=== PATIENT | female | born 1945 | race Caucasian/White ===

== ENCOUNTER 2016-05-17 13:38 | Emergency (ER) | payer MEDICARE ==
[2016-05-17] MEDS ORDERED: Ativan 2 MG/1 ML VIAL SL ONE (13:46)
--- NOTE | 2016-05-17 13:51 | ERPHSYRPT ---
- History of Present Illness Time Seen by Provider: 05/17/16 13:40 Source: patient, EMS Patient Subjective Stated Complaint: PT STATES SHE DID NOT SLEEP LAST NIGHT. PT BROUGHT IN BY EMS. Triage Nursing Assessment: PT MANIC, RAMBLING IN SPEACH. PT PINK, WARM, DRY. Physician History: CC: [facility] patient with hx of psychosis. She is on long acting injectable abilify thru [facility]. She states unable to sleep last night. She called 911. FD noted rambling speech, psychosis, hyper-congregational talk. She has multiple boyfriends and has apparently broken up with one. She denies suicide or homicidal thoughts. She denies hallucinations. She has chronic delusions. Severity of Symptoms-Max: moderate Severity of Symptoms-Current: moderate Allergies/Adverse Reactions: allopurinol sodium [From Aloprim] Allergy (Mild, Verified 05/17/16 16:33) betamethasone [From Celestone] Allergy (Mild, Verified 05/17/16 16:33) betamethasone sodium phosphate [From Celestone] Allergy (Mild, Verified 16:33) cefaclor [From Ceclor] Allergy (Mild, Verified 05/17/16 16:33) lisinopril Allergy (Mild, Verified 05/17/16 16:33) Penicillins Allergy (Mild, Verified 05/17/16 16:33) Home Medications: Losartan Potassium 50 mg [Cozaar 50 MG] 50 mg PO DAILY 04/23/13 [History] Omeprazole 20 MG [Prilosec 20 mg] 40 mg PO DAILY 04/23/13 [History] Docusate Sodium 100 mg [Colace 100 MG] 100 mg PO BID 08/19/14 [History] Aripiprazole 10 mg [Abilify 10 MG] 10 mg PO DAILY 11/17/15 [History] Benztropine Mesylate 1 mg PO HS 11/17/15 [History] Cranberry 500 mg PO DAILY 11/17/15 [History] Lorazepam 0.5 mg [Ativan 0.5 MG] 1 mg PO TID 11/17/15 [History] Hx Tetanus, Diphtheria Vaccination/Date Given: Yes (UP TO DATE) Hx Influenza Vaccination/Date Given: Yes Hx Pneumococcal Vaccination/Date Given: Yes Immunizations Up to Date: Yes - Past Medical History Pertinent Past Medical History: Yes Neurological History: No Pertinent History ENT History: Cataracts Cardiac History: Hypertension Respiratory History: No Pertinent History Endocrine Medical History: No Pertinent History Musculoskeletal History: No Pertinent History GI Medical History: GERD History: No Pertinent History Psycho-Social History: Anxiety, Bipolar, Other Female Reproductive Disorders: No Pertinent History - Past Surgical History Past Surgical History: Yes Neuro Surgical History: No Pertinent History Cardiac: No Pertinent History Respiratory: No Pertinent History Gastrointestinal: No Pertinent History Genitourinary: No Pertinent History Musculoskeletal: No Pertinent History Female Surgical History: Tubal Ligation Other Surgical History: TUBAL AND MOUTH SURGERY. Pt poor historian - Social History Smoking Status: Never smoker Exposure to second hand smoke: No Drug Use: none Patient Lives Alone: No Significant Family History: no pertinent family hx - Female History Hx Now: No - Review of Systems Constitutional: No Fever, No Chills Eyes: No Vision Changes Ears, Nose, & Throat: No Symptoms Respiratory: No Symptoms Cardiac: No Chest Pain Abdominal/Gastrointestinal: No Abdominal Pain, No Nausea, No Vomiting, No Diarrhea Genitourinary Symptoms: No Symptoms Musculoskeletal: No Back Pain Skin: No Rash Neurological: No Focal Weakness, No Headache, No Parasthesia Psychological: Anxiety, Emotional Lability, No Drug Abuse, No Depression, No Suicidal Ideations, No Homicidal Ideations, No Hallucinations All Other Systems: Reviewed and Negative - Nursing Vital Signs Nursing Vital Signs: Initial Vital Signs Temperature 97.6 F Temperature Source Oral Pulse Rate 74 Respiratory Rate 16 Blood Pressure [Right Arm] 136/78 Pain Intensity 0 - Physical Exam General Appearance: alert, other (rambling speech, hypersexual and hyper- congregational speech. Frail lederly lady.) Neck Exam: normal inspection, non-tender, supple Respiratory Exam: normal breath sounds, lungs clear Cardiovascular Exam: regular rate/rhythm, No murmur Gastrointestinal/Abdominal Exam: soft, No tenderness, No distention Extremities Exam: normal inspection, normal range of motion Neurological Exam: alert Skin Exam: warm, dry, No rash SpO2 Interpretation: normal SpO2: 97 Oxygen Delivery: Room Air - Course Nursing assessment & vital signs reviewed: Yes Ordered Tests: Active Orders 24 hr Category Date Time Status Psychiatric Evaluation STAT Care 05/17/16 13:46 Active Regular Diet Diet 05/17/16 Dinner Active CBC W DIFF Stat Lab 05/17/16 14:15 Completed CMP Stat Lab 05/17/16 14:15 Completed Ethyl Alcohol,Urine Stat Lab 05/17/16 14:15 Completed UA Stat Lab 05/17/16 14:15 Completed Urine Triage Profile Stat Lab 05/17/16 14:15 Completed Medication Summary Discontinued Medications Generic Name Dose Route Start Last Admin Trade Name Ottoniel PRN Reason Stop Dose Admin Lorazepam 1 mg 05/17/16 13:46 05/17/16 14:08 Ativan 2 Mg/1 Ml Vial SL 05/17/16 13:47 1 mg STAT ONE Administration Lorazepam Confirm 05/17/16 14:08 Ativan 2 Mg/1 Ml Vial Administered 05/17/16 14:09 Dose 2 mg .ROUTE .STK-MED ONE Lab/Rad Data: Laboratory Result Diagrams 05/17/16 14:15 05/17/16 14:15 Laboratory Results 05/17/16 05/17/16 05/17/16 Range/Units 14:15 14:15 14:15 WBC 7.1 (4.0-10.5) K/mm3 RBC 4.13 (4.1-5.4) M/mm3 Hgb 12.5 (12.0-16.0) gm/dl Hct 38.6 (35-47) % MCV 93.5 (78-100) fl MCH 30.3 (26-32) pg MCHC 32.4 (32-36) g/dl RDW 13.3 (11.5-14.0) % Plt Count 286 (150-450) K/mm3 MPV 10.6 H (6-9.5) fl Gran % 51.6 (36.0-66.0) % Lymphocytes % 37.0 (24.0-44.0) % Monocytes % 5.9 (0.0-12.0) % Eosinophils % 4.8 (0.00-5.0) % Basophils % 0.7 (0.0-0.4) % Basophils # 0.05 (0-0.4) Sodium 140 (136-145) mEq/L Potassium 3.7 (3.5-5.1) mEq/L Chloride 104 (98-107) mEq/L Carbon Dioxide 29.6 (21-32) mEq/L Anion Gap 10.1 (5-15) MEQ/L BUN 17 (9-20) mg/dL Creatinine 0.69 (0.55-1.30) mg/dl Estimated GFR > 60 ML/MIN Glucose 98 (70-110) MG/DL Calcium 9.7 (8.5-10.1) mg/dL Total Bilirubin 0.4 (0.2-1.0) mg/dL AST 19 (15-37) U/L ALT 17 (12-78) U/L Alkaline Phosphatase 101 (46-116) U/L Serum Total Protein 8.5 H (6.4-8.2) gm/dL Albumin 4.1 (3.4-5.0) g/dL Ur Collection Type Urine Color (YELLOW) Urine Appearance (CLEAR) Urine pH 7.5 (5-6) Ur Specific [place] (1.005-1.025) Urine Protein (Negative) Urine Glucose (UA) (NEGATIVE) mg/dL Urine Ketones (NEGATIVE) Urine Nitrite (NEGATIVE) Urine Bilirubin (NEGATIVE) Urine Urobilinogen (0-1) mg/dL Urine WBC (Auto) (NEGATIVE) Urine RBC (Auto) (0-5) Evans/ul Urine Opiates Level (NEGATIVE) Ur Methadone (NEGATIVE) Urine Barbiturates (NEGATIVE) Ur Phencyclidine (PCP) (NEGATIVE) Urine Amphetamine (NEGATIVE) U Benzodiazepine Level (NEGATIVE) Urine Cocaine (NEGATIVE) Urine Marijuana (THC) (NEGATIVE) Urine Ethyl Alcohol 2 (0.00-20) mg/dl Specimen Received 05/17/16 05/17/16 Range/Units 14:15 14:15 WBC (4.0-10.5) K/mm3 RBC (4.1-5.4) M/mm3 Hgb (12.0-16.0) gm/dl Hct (35-47) % MCV (78-100) fl MCH (26-32) pg MCHC (32-36) g/dl RDW (11.5-14.0) % Plt Count (150-450) K/mm3 MPV (6-9.5) fl Gran % (36.0-66.0) % Lymphocytes % (24.0-44.0) % Monocytes % (0.0-12.0) % Eosinophils % (0.00-5.0) % Basophils % (0.0-0.4) % Basophils # (0-0.4) Sodium (136-145) mEq/L Potassium (3.5-5.1) mEq/L Chloride (98-107) mEq/L Carbon Dioxide (21-32) mEq/L Anion Gap (5-15) MEQ/L BUN (9-20) mg/dL Creatinine (0.55-1.30) mg/dl Estimated GFR ML/MIN Glucose (70-110) MG/DL Calcium (8.5-10.1) mg/dL Total Bilirubin (0.2-1.0) mg/dL AST (15-37) U/L ALT (12-78) U/L Alkaline Phosphatase (46-116) U/L Serum Total Protein (6.4-8.2) gm/dL Albumin (3.4-5.0) g/dL Ur Collection Type VOID Urine Color YELLOW (YELLOW) Urine Appearance CLEAR (CLEAR) Urine pH 7.5 (5-6) Ur Specific [place] 1.015 (1.005-1.025) Urine Protein NEGATIVE (Negative) Urine Glucose (UA) NEGATIVE (NEGATIVE) mg/dL Urine Ketones NEGATIVE (NEGATIVE) Urine Nitrite NEGATIVE (NEGATIVE) Urine Bilirubin NEGATIVE (NEGATIVE) Urine Urobilinogen 0.2 (0-1) mg/dL Urine WBC (Auto) NEGATIVE (NEGATIVE) Urine RBC (Auto) NEGATIVE (0-5) Evans/ul Urine Opiates Level NEG. (NEGATIVE) Ur Methadone NEG. (NEGATIVE) Urine Barbiturates NEG. (NEGATIVE) Ur Phencyclidine (PCP) NEG. (NEGATIVE) Urine Amphetamine NEG. (NEGATIVE) U Benzodiazepine Level NEG. (NEGATIVE) Urine Cocaine NEG. (NEGATIVE) Urine Marijuana (THC) NEG. (NEGATIVE) Urine Ethyl Alcohol (0.00-20) mg/dl Specimen Received 05/17/16 1430 - Progress Progress Note: 05/17/16 16:58 She had [facility] consult. Therapist is very familiar with her. He advised release home and follow up Thursday. Will release with instructions. Nurses are calling her family to take her home. Counseled pt/family regarding: lab results, diagnosis, need for follow-up - Departure Time of Disposition: 16:59 Departure Disposition: Home Clinical Impression: Bipolar 1 disorder Condition: Stable Critical Care Time: No Referrals: LENNIE BONNER [Primary Care Provider] - Instructions: Bipolar Disorder Additional Instructions: Follow up with [facility] Thursday. Take your medications as prescribed.
[2016-05-17] MEDS ORDERED: Ativan 2 MG/1 ML VIAL ONE (14:08)
[2016-05-17 14:27] LABS: BASOPHIL % 0.7 % (0.0-0.4); Eosinophil % 4.8 % (0.00-5.0); Granulocytes % 51.6 % (36.0-66.0); Mean Cell Volume 93.5 fl (78-100); Mean Corpuscular Hemoglobin 30.3 pg (26-32); Mean Platelet Volume 10.6 fl (6-9.5); Monocytes % 5.9 % (0.0-12.0); Platelet Count 286 K/mm3 (150-450); Red Blood Count 4.13 M/mm3 (4.1-5.4); Red Cell Distribution Width 13.3 % (11.5-14.0); White Blood Count 7.1 K/mm3 (4.0-10.5)
[2016-05-17 14:38] LABS: COMPLETE URINE MICROSCOPIC? NO; Collection Type VOID; Ph 7.5 (5-6)
[2016-05-17 14:56] LABS: ALBUMIN 4.1 g/dL (3.4-5.0); ALKALINE PHOSPHATASE 101 U/L (46-116); ANION GAP 10.1 MEQ/L (5-15); BILIRUBIN,TOTAL 0.4 mg/dL (0.2-1.0); BLOOD UREA NITROGEN 17 mg/dL (9-20); CHLORIDE 104 mEq/L (98-107); Carbon Dioxide 29.6 mEq/L (21-32); Glucose 98 MG/DL (70-110); Potassium 3.7 mEq/L (3.5-5.1); SGOT/AST 19 U/L (15-37); SGPT/ALT 17 U/L (12-78); SODIUM 140 mEq/L (136-145); Total Protein 8.5 gm/dL (6.4-8.2)
[2016-05-17 17:09] VITALS: BP 118/70; PULSE 76; O2SAT 100
== END 2016-05-17 17:10 | disposition home or self-care (01) ==
LOC: ED 13:38
DX: F31.9 Bipolar disorder, unspecified (principal); Z79.899 Other long term (current) drug therapy
CPT/HCPCS: 36415; 80053; 80307; 80320; 81002; 83986; 85025; 90791; 99283; 99285; J2060; Q3014

== ENCOUNTER 2016-09-24 04:12 | Emergency (ER) | payer MEDICARE ==
[2016-09-24 04:26] VITALS: O2SAT 98
[2016-09-24 04:57] LABS: BASOPHIL % 0.9 % (0.0-0.4); Eosinophil % 6.4 % (0.00-5.0); Granulocytes % 46.2 % (36.0-66.0); Lymphocytes % 37.5 % (24.0-44.0); Mean Platelet Volume 10.1 fl (6-9.5); Platelet Count 200 K/mm3 (150-450); Red Blood Count 3.37 M/mm3 (4.1-5.4); Red Cell Distribution Width 13.6 % (11.5-14.0); White Blood Count 5.4 K/mm3 (4.0-10.5)
[2016-09-24 04:59] LABS: Mean Corpuscular Hemoglobin 29.3 pg (26-32)
--- NOTE | 2016-09-24 05:03 | ERPHSYRPT ---
- History of Present Illness Time Seen by Provider: 09/24/16 04:30 Historian: patient Exam Limitations: clinical condition Patient Subjective Stated Complaint: PT STATES THAT SHE BEGAN HAVING SOME RECTAL BLEEDING. X 1 WEEK AGO DENIES ANY NAUSEA OR DIARRHEA. DENIES ANY. ABDOMINAL PAIN Triage Nursing Assessment: PT ALERT WARM AND DRY RESP EASY NON LABORED. ABDOMEN. SOFT NON TENDER ON PALPATION Physician History: PATIENT COMPLAINS OF RECTAL BLEEDING X 1 WEEK. DENIES WEAKNESS, DIZZINESS ABDOMINAL PAIN. Timing/Duration: week(s) Activities at Onset: none Quality: other (SCANT) Pain Radiation: no radiation Severity of Pain-Max: none Severity of Pain-Current: none Associated Symptoms: denies symptoms Previous symptoms: no prior history Allergies/Adverse Reactions: allopurinol sodium [From Aloprim] Allergy (Mild, Verified 05/17/16 16:33) betamethasone [From Celestone] Allergy (Mild, Verified 05/17/16 16:33) betamethasone sodium phosphate [From Celestone] Allergy (Mild, Verified 16:33) cefaclor [From Ceclor] Allergy (Mild, Verified 05/17/16 16:33) lisinopril Allergy (Mild, Verified 05/17/16 16:33) Penicillins Allergy (Mild, Verified 05/17/16 16:33) Home Medications: Losartan Potassium 50 mg [Cozaar 50 MG] 50 mg PO DAILY 04/23/13 [History] Omeprazole 20 MG [Prilosec 20 mg] 40 mg PO DAILY 04/23/13 [History] Docusate Sodium 100 mg [Colace 100 MG] 100 mg PO BID 08/19/14 [History] Lorazepam 0.5 mg [Ativan 0.5 MG] 1 mg PO TID 11/17/15 [History] Hx Tetanus, Diphtheria Vaccination/Date Given: No (UNKNOWN) Hx Influenza Vaccination/Date Given: No Hx Pneumococcal Vaccination/Date Given: No Immunizations Up to Date: Yes - Review of Systems Constitutional: No Fever, No Chills Eyes: No Symptoms Ears, Nose, & Throat: No Symptoms Respiratory: No Cough, No Dyspnea Cardiac: No Chest Pain, No Edema, No Syncope Abdominal/Gastrointestinal: Hematochezia, No Abdominal Pain, No Nausea, No Vomiting, No Diarrhea Genitourinary Symptoms: No Symptoms, No Dysuria Musculoskeletal: No Symptoms, No Back Pain, No Neck Pain Skin: No Rash Neurological: No Dizziness, No Focal Weakness, No Sensory Changes Psychological: No Symptoms Endocrine: No Symptoms All Other Systems: Reviewed and Negative - Past Medical History Pertinent Past Medical History: Yes Neurological History: No Pertinent History ENT History: Cataracts Cardiac History: Hypertension Respiratory History: No Pertinent History Endocrine Medical History: No Pertinent History Musculoskeletal History: No Pertinent History GI Medical History: GERD History: No Pertinent History Psycho-Social History: Anxiety, Bipolar, Other Female Reproductive Disorders: No Pertinent History Other Medical History: pt niecy historian, updated 01/17/15 - Past Surgical History Past Surgical History: Yes Neuro Surgical History: No Pertinent History Cardiac: No Pertinent History Respiratory: No Pertinent History Gastrointestinal: No Pertinent History Genitourinary: No Pertinent History Musculoskeletal: No Pertinent History Female Surgical History: Tubal Ligation Other Surgical History: TUBAL AND MOUTH SURGERY. Pt niecy keithian - Social History Smoking Status: Never smoker Exposure to second hand smoke: No Drug Use: none Patient Lives Alone: No Significant Family History: no pertinent family hx - Female History Hx Last Menstrual Period: N/A Hx Now: No - Nursing Vital Signs Nursing Vital Signs: Initial Vital Signs Temperature 97.1 F Temperature Source Oral Pulse Rate 60 Respiratory Rate 18 Blood Pressure [118/48] 118/48 - Physical Exam General Appearance: no apparent distress, alert Eye Exam: PERRL/EOMI, eyes nml inspection Ears, Nose, Throat Exam: normal ENT inspection, pharynx normal, moist mucous membranes Neck Exam: normal inspection, non-tender, supple, full range of motion Respiratory Exam: normal breath sounds, lungs clear, No respiratory distress Cardiovascular Exam: regular rate/rhythm, normal heart sounds Gastrointestinal/Abdomen Exam: soft, normal bowel sounds, other (NONTENDER), No tenderness, No mass Rectal Exam: normal exam, normal rectal tone Back Exam: normal inspection, normal range of motion, No CVA tenderness, No vertebral tenderness Extremity Exam: normal inspection, normal range of motion, pelvis stable Neurologic Exam: alert, oriented x 3, cooperative, normal mood/affect, nml cerebellar function, sensation nml, No motor deficits Skin Exam: normal color, warm, dry SpO2: 98 Oxygen Delivery: Room Air Ordered Tests: Active Orders 24 hr Category Date Time Status CBC W DIFF Stat Lab 09/24/16 04:45 Completed Occult Blood,Stool Other Stat Lab 09/24/16 05:30 Completed PROTIME WITH INR Stat Lab 09/24/16 04:45 Completed Lab/Rad Data: Laboratory Result Diagrams 09/24/16 04:45 Laboratory Results 09/24/16 09/24/16 09/24/16 Range/Units 05:30 04:45 04:45 WBC 5.4 (4.0-10.5) K/mm3 RBC 3.37 L (4.1-5.4) M/mm3 Hgb 9.9 L (12.0-16.0) gm/dl Hct 31.0 L (35-47) % MCV 92.0 (78-100) fl MCH 29.3 (26-32) pg MCHC 31.9 L (32-36) g/dl RDW 13.6 (11.5-14.0) % Plt Count 200 (150-450) K/mm3 MPV 10.1 H (6-9.5) fl Gran % 46.2 (36.0-66.0) % Lymphocytes % 37.5 (24.0-44.0) % Monocytes % 9.0 (0.0-12.0) % Eosinophils % 6.4 H (0.00-5.0) % Basophils % 0.9 (0.0-0.4) % Basophils # 0.05 (0-0.4) INR 0.89 (0.8-3.0) Stool Occult Blood POSITIVE (Negative) - Progress Progress Note: 09/24/16 05:57 OCCULT POSITIVE, HGB 9.9, HGB 12.5 IN 05/[address] Bonner (DISCUSSED WITH DR BONNER AT 0600 CONCERNING FOLLOWUP IN OFFICE) Counseled pt/family regarding: diagnosis, need for follow-up - Departure Time of Disposition: 06:10 Departure Disposition: Home Clinical Impression: ANEMIA, RECTAL BLEEDING Condition: Stable Critical Care Time: No Additional Instructions: CALL DR BONNER OFFICE TODAY TO SCHEDULE FOLLOWUP APPOINTMENT CONCERNING COLONOSCOPY. [facility] WEAKNESS OR DIZZINESS.
[2016-09-24 05:11] LABS: INR 0.89 (0.8-3.0)
[2016-09-24 06:29] VITALS: BP 137/69; PULSE 72
== END 2016-09-24 06:28 | disposition home or self-care (01) ==
LOC: ED 04:12
DX: D64.9 Anemia, unspecified (principal); K62.5 Hemorrhage of anus and rectum
CPT/HCPCS: 36415; 82272; 85025; 85610; 99283

== ENCOUNTER 2016-11-09 23:55 | Emergency (ER) | payer MEDICARE ==
[2016-11-10 00:17] VITALS: O2SAT 98
[2016-11-10] MEDS ORDERED: BABY ASPIRIN 81 MG CHEW PO ONE (00:21)
--- NOTE | 2016-11-10 00:27 | ERPHSYRPT ---
- History of Present Illness Time Seen by Provider: 11/10/16 00:17 Source: patient Exam Limitations: no limitations Patient Subjective Stated Complaint: patient was anxious over being assigned a guardian and she called 911, is happy now thats she here with us, per patient Triage Nursing Assessment: pt alert and oriented, laughing constantly, [id number], able ot ambulate to restroom by herself, gait is steady, skin clean dry and intact. Physician History: FOR ABOUT THE PAST 2 HOURS PT HAS HAD CONSTANT SHARP LEFT ANTERIOR CHEST PAIN; DENIES SHORTNESS OF AIR, FEVER, COUGH, NAUSEA, DIAPHORESIS, ABDOMINAL PAIN. PT ALSO STATES HER BP WAS 200 SYSTOLIC TONIGHT. Allergies/Adverse Reactions: allopurinol sodium [From Aloprim] Allergy (Mild, Verified 05/17/16 16:33) betamethasone [From Celestone] Allergy (Mild, Verified 05/17/16 16:33) betamethasone sodium phosphate [From Celestone] Allergy (Mild, Verified 16:33) cefaclor [From Ceclor] Allergy (Mild, Verified 05/17/16 16:33) lisinopril Allergy (Mild, Verified 05/17/16 16:33) Penicillins Allergy (Mild, Verified 05/17/16 16:33) Home Medications: Losartan Potassium 50 mg [Cozaar 50 MG] 50 mg PO DAILY 04/23/13 [History] Omeprazole 20 MG [Prilosec 20 mg] 40 mg PO DAILY 04/23/13 [History] Docusate Sodium 100 mg [Colace 100 MG] 100 mg PO BID 08/19/14 [History] Lorazepam 0.5 mg [Ativan 0.5 MG] 1 mg PO TID 11/17/15 [History] Hx Tetanus, Diphtheria Vaccination/Date Given: Yes Hx Influenza Vaccination/Date Given: Yes Hx Pneumococcal Vaccination/Date Given: Yes Immunizations Up to Date: Yes - Review of Systems Cardiac: Chest Pain All Other Systems: Reviewed and Negative - Past Medical History Pertinent Past Medical History: Yes Neurological History: No Pertinent History ENT History: Cataracts Cardiac History: Hypertension Respiratory History: No Pertinent History Endocrine Medical History: No Pertinent History Musculoskeletal History: No Pertinent History GI Medical History: GERD History: No Pertinent History Psycho-Social History: Anxiety, Bipolar, Other Female Reproductive Disorders: No Pertinent History Other Medical History: pt niecy historian, updated 01/17/15 - Past Surgical History Past Surgical History: Yes Neuro Surgical History: No Pertinent History Cardiac: No Pertinent History Respiratory: No Pertinent History Gastrointestinal: No Pertinent History Genitourinary: No Pertinent History Musculoskeletal: No Pertinent History Female Surgical History: Tubal Ligation Other Surgical History: TUBAL AND MOUTH SURGERY. Pt poor historian - Social History Smoking Status: Never smoker Exposure to second hand smoke: No Drug Use: none Patient Lives Alone: No Significant Family History: no pertinent family hx - Female History Hx Now: No - Nursing Vital Signs Nursing Vital Signs: Initial Vital Signs Temperature 97.3 F 11/09/16 23:56 Pulse Rate 60 11/09/16 23:56 Respiratory Rate 17 11/09/16 23:56 Blood Pressure 178/88 11/09/16 23:56 O2 Sat by Pulse Oximetry 98 11/09/16 23:56 Pain Scale Pain Intensity 3 - Physical Exam General Appearance: alert, anxiety Eye Exam: other (EXOTROPIA) Ears, Nose, Throat Exam: pharynx normal, moist mucous membranes Neck Exam: normal inspection Respiratory Exam: lungs clear Cardiovascular Exam: normal heart sounds Gastrointestinal/Abdomen Exam: soft, normal bowel sounds Back Exam: normal range of motion Extremity Exam: normal inspection Neurologic Exam: alert, cooperative Skin Exam: warm, dry SpO2 Interpretation: normal SpO2: 98 Oxygen Delivery: Room Air - Course Nursing assessment & vital signs reviewed: Yes EKG Interpreted by Me: RATE (57), Sinus Wilian, NORMAL AXIS, NORMAL INTERVALS - Radiology Exams Chest X-ray Interpretation: Interpreted by me, No Pneumonia Ordered Tests: Active Orders 24 hr Category Date Time Status Coordinating Producer STAT Care 11/10/16 00:21 Active EKG-ER Only STAT Care 11/10/16 00:21 Active CHEST 1 VIEW (PORTABLE) Stat Exams 11/10/16 00:22 Taken AMYLASE Stat Lab 11/10/16 00:30 Completed CBC W DIFF Stat Lab 11/10/16 00:30 Completed CMP Stat Lab 11/10/16 00:30 Completed LIPASE Stat Lab 11/10/16 00:30 Completed MAGNESIUM Stat Lab 11/10/16 00:30 Completed TROPONIN Q3H Lab 11/10/16 00:30 Completed TROPONIN Q3H Lab 11/10/16 03:30 Ordered TROPONIN Q3H Lab 11/10/16 06:30 Ordered TROPONIN Q3H Lab 11/10/16 09:30 Ordered TROPONIN Q3H Lab 11/10/16 12:30 Ordered Medication Summary Discontinued Medications Generic Name Dose Route Start Last Admin Trade Name Ottoniel PRN Reason Stop Dose Admin Aspirin 324 mg 11/10/16 00:21 11/10/16 00:36 Baby Aspirin 81 Mg Chew PO 11/10/16 00:22 324 mg STAT ONE Administration Aspirin Confirm 11/10/16 00:34 Baby Aspirin 81 Mg Chew Administered 11/10/16 00:35 Dose 324 mg .ROUTE .STK-MED ONE Lab/Rad Data: Laboratory Result Diagrams 11/10/16 00:30 11/10/16 00:30 Laboratory Results 11/10/16 11/10/16 11/10/16 Range/Units 00:30 00:30 00:30 WBC 5.8 (4.0-10.5) K/mm3 RBC 3.55 L (4.1-5.4) M/mm3 Hgb 10.2 L (12.0-16.0) gm/dl Hct 32.8 L (35-47) % MCV 92.4 (78-100) fl MCH 28.7 (26-32) pg MCHC 31.1 L (32-36) g/dl RDW 14.1 H (11.5-14.0) % Plt Count 196 (150-450) K/mm3 MPV 10.4 H (6-9.5) fl Gran % 40.8 (36.0-66.0) % Lymphocytes % 43.6 (24.0-44.0) % Monocytes % 9.9 (0.0-12.0) % Eosinophils % 5.0 (0.00-5.0) % Basophils % 0.7 (0.0-0.4) % Basophils # 0.04 (0-0.4) Sodium 144 (136-145) mEq/L Potassium 4.0 (3.5-5.1) mEq/L Chloride 105 (98-107) mEq/L Carbon Dioxide 28.8 (21-32) mEq/L Anion Gap 14.1 (5-15) MEQ/L BUN 15 (9-20) mg/dL Creatinine 0.70 (0.55-1.30) mg/dl Estimated GFR > 60 ML/MIN Glucose 94 (70-110) MG/DL Calcium 9.7 (8.5-10.1) mg/dL Magnesium 2.0 (1.8-2.4) mg/dL Total Bilirubin 0.30 (0.2-1.0) mg/dL AST 19 (15-37) U/L ALT 21 (12-78) U/L Alkaline Phosphatase 105 (46-116) U/L Troponin I < 0.017 (0.000-0.056) ng/ml Serum Total Protein 7.1 (6.4-8.2) gm/dL Albumin 3.6 (3.4-5.0) g/dL Amylase 75 (25-115) U/L Lipase 93 (73-393) U/L - Departure Time of Disposition: 01:21 Departure Disposition: Home Clinical Impression: CHEST PAIN, ANXIETY Condition: Stable Critical Care Time: No Instructions: Anxiety -- Adult Additional Instructions: FOLLOW UP WITH PRIVATE DOCTOR TOMORROW.
[2016-11-10] MEDS ORDERED: BABY ASPIRIN 81 MG CHEW ONE (00:34)
[2016-11-10 00:38] LABS: BASOPHIL % 0.7 % (0.0-0.4); Granulocytes % 40.8 % (36.0-66.0); Lymphocytes % 43.6 % (24.0-44.0); Mean Cell Volume 92.4 fl (78-100); Mean Corpuscular Hemoglobin 28.7 pg (26-32); Mean Platelet Volume 10.4 fl (6-9.5); Monocytes % 9.9 % (0.0-12.0); Platelet Count 196 K/mm3 (150-450); Red Blood Count 3.55 M/mm3 (4.1-5.4); Red Cell Distribution Width 14.1 % (11.5-14.0); White Blood Count 5.8 K/mm3 (4.0-10.5)
[2016-11-10 00:54] VITALS: BP 171/69; PULSE 68
[2016-11-10 00:59] LABS: ALBUMIN 3.6 g/dL (3.4-5.0); ALKALINE PHOSPHATASE 105 U/L (46-116); ANION GAP 14.1 MEQ/L (5-15); BLOOD UREA NITROGEN 15 mg/dL (9-20); CHLORIDE 105 mEq/L (98-107); Carbon Dioxide 28.8 mEq/L (21-32); Glucose 94 MG/DL (70-110); LIPASE 93 U/L (73-393); SGOT/AST 19 U/L (15-37); SGPT/ALT 21 U/L (12-78); SODIUM 144 mEq/L (136-145); Total Protein 7.1 gm/dL (6.4-8.2)
--- NOTE | 2016-11-10 08:50 | XRAY ---
Indication: Chest pain. Comparison: March 28, 2015. Portable apical lordotic chest underinflated today and clear again with incidental calcified granulomas. Heart is not enlarged. Bony thorax intact. Impression: Stable nonacute chest.
== END 2016-11-10 03:20 | disposition home or self-care (01) ==
LOC: ED 23:55 → SUPCPDRO 23:55 → ED 11-10 03:20
DX: R07.89 Other chest pain (principal); F41.9 Anxiety disorder, unspecified; I10 Essential (primary) hypertension; Z79.899 Other long term (current) drug therapy
CPT/HCPCS: 36415; 71010; 80053; 82150; 83690; 83735; 84484; 85025; 93005; 93041; 99283; 99285; A9270-GY

== ENCOUNTER 2017-04-11 15:00 | Emergency (ER) | payer MEDICARE ==
[2017-04-11] MEDS ORDERED: Adacel Vial IM ONE ×2 (15:06→15:07)
--- NOTE | 2017-04-11 15:07 | ERPHSYRPT ---
- History of Present Illness Time Seen by Provider: 04/11/17 15:01 Source: patient, EMS Physician History: CC: dry hands Hx: [address] Bonner. She called the ambulance to bring her here for dry hands. She has dry cracked hands. Thinks she has allergy to her gloves. It is cold outside. No self harm. She is unsure of her last tetanus vaccine. Timing/Duration: today Severity: moderate Allergies/Adverse Reactions: allopurinol sodium [From Aloprim] Allergy (Mild, Verified 03/04/17 14:33) betamethasone [From Celestone] Allergy (Mild, Verified 03/04/17 14:33) betamethasone sodium phosphate [From Celestone] Allergy (Mild, Verified 14:33) cefaclor [From Ceclor] Allergy (Mild, Verified 03/04/17 14:33) lisinopril Allergy (Mild, Verified 03/04/17 14:33) Penicillins Allergy (Mild, Verified 03/04/17 14:33) Home Medications: Losartan Potassium 50 mg [Cozaar 50 MG] 50 mg PO DAILY 04/23/13 [History] Omeprazole 20 MG [Prilosec 20 mg] 40 mg PO DAILY 04/23/13 [History] Docusate Sodium 100 mg [Colace 100 MG] 100 mg PO DAILY 08/19/14 [History] Lorazepam 0.5 mg [Ativan 0.5 MG] 1 mg PO TID 11/17/15 [History] Acetaminophen [Tylenol] 650 mg PO BID 03/04/17 [History] Ascorbic Acid 500 mg [Vitamin C 500 MG] 1,000 mg PO DAILY 03/04/17 [ History] Atorvastatin Calcium [Lipitor] 10 mg PO DAILY 03/04/17 [History] Calcium Citrate/Vitamin D3 [Citracal + D Caplet] 1 each PO DAILY 03/04/17 [ History] Calcium Polycarbophil [Fibercon] 625 mg BID 03/04/17 [History] Cetirizine HCl [Zyrtec] 10 mg PO DAILY 03/04/17 [History] Cranberry Conc/C/Bacill Coag [Cranberry Tablet] 1 each PO DAILY 03/04/17 [ History] Ferrous Sulfate [Iron] 325 mg PO BID 03/04/17 [History] Multivitamin [Multivitamins] 1 each PO DAILY 03/04/17 [History] Vitamin B Complex [Stress B] 1 each PO DAILY 03/04/17 [History] Vitamin B Complex [Vitamin B-100 Complex] 1 each PO DAILY 03/04/17 [History] Hx Tetanus, Diphtheria Vaccination/Date Given: Yes Hx Influenza Vaccination/Date Given: Yes Hx Pneumococcal Vaccination/Date Given: Yes - Review of Systems Constitutional: No Fever Respiratory: No Cough, No Dyspnea Cardiac: No Chest Pain Abdominal/Gastrointestinal: No Abdominal Pain Skin: Rash (dry hands) Neurological: No Focal Weakness, No Parasthesia - Past Medical History Pertinent Past Medical History: Yes Neurological History: No Pertinent History ENT History: Cataracts Cardiac History: Hypertension Respiratory History: No Pertinent History Endocrine Medical History: No Pertinent History Musculoskeletal History: No Pertinent History GI Medical History: GERD History: No Pertinent History Psycho-Social History: Anxiety, Bipolar, Other Female Reproductive Disorders: No Pertinent History - Past Surgical History Past Surgical History: Yes Neuro Surgical History: No Pertinent History Cardiac: No Pertinent History Respiratory: No Pertinent History Gastrointestinal: No Pertinent History Genitourinary: No Pertinent History Musculoskeletal: No Pertinent History Female Surgical History: Tubal Ligation Other Surgical History: TUBAL AND MOUTH SURGERY. Pt poor historian - Social History Smoking Status: Never smoker Exposure to second hand smoke: No Drug Use: none Patient Lives Alone: No (lives at home) Significant Family History: no pertinent family hx - Physical Exam General Appearance: alert Eye Exam: PERRL/EOMI Ears, Nose, Throat Exam: moist mucous membranes Neck Exam: normal inspection, non-tender, supple Respiratory Exam: normal breath sounds, lungs clear Cardiovascular Exam: regular rate/rhythm Neurologic Exam: alert, oriented x 3, cooperative, nml station & gait, sensation nml, No motor deficits Skin Exam: warm, dry, other (dry cracked skin on her hands, no superinfection. No erythema or drng) - Course Nursing assessment & vital signs reviewed: Yes - Progress Progress Note: 04/11/17 15:04 Advised she use udder cream and bag balm for her dry skin. She will follow up with Dr Bonner. Counseled pt/family regarding: diagnosis, need for follow-up - Departure Time of Disposition: 15:04 Departure Disposition: Home Clinical Impression: Compulsive behavior, Irritant hand dermatitis Condition: Stable Critical Care Time: No Referrals: LENNIE BONNER [Primary Care Provider] - Instructions: Abrasion Additional Instructions: Use udder cream on your hands from [facility] or the farm [facility]. After, use bag balm on your hands to protect them from the cold and water. Only wash your hands before eating and if soiled. Follow up with Dr Bonner. You had your tetanus vaccine updated here.
[2017-04-11 15:11] VITALS: BP 138/71; PULSE 70; O2SAT 97
== END 2017-04-11 16:18 | disposition home or self-care (01) ==
LOC: ED 15:00
DX: L24.9 Irritant contact dermatitis, unspecified cause (principal); F60.5 Obsessive-compulsive personality disorder
CPT/HCPCS: 90471; 90715

== ENCOUNTER 2017-05-23 16:02 | Emergency (ER) | payer MEDICARE ==
[2017-05-23] MEDS ORDERED: TYLENOL 325 MG PO ONE (16:34)
--- NOTE | 2017-05-23 16:39 | ERPHSYRPT ---
- History of Present Illness Time Seen by Provider: 05/23/17 16:29 Source: patient, other (friend Castro) Patient Subjective Stated Complaint: pt here for left pain. pt has hammer toe and wers pads on toes witch is not hepling Triage Nursing Assessment: pt has abrasion to left foot.pt walked in, resp easy , kin w/d/p Physician History: CC: left foot hammer toe Hx: 72 y/o patient of Dr Bonner with hammer toe on left foot. She has had this for quite some time. She reports it is worse so she came to the ER to have it fixed. No recent injury. She saw Dr Ross for this in the past. Tetanus up to date. She uses hammer toe pads. Lower Extremities Pain: 2nd toe: left Allergies/Adverse Reactions: allopurinol sodium [From Aloprim] Allergy (Mild, Verified 05/23/17 16:25) betamethasone [From Celestone] Allergy (Mild, Verified 05/23/17 16:25) betamethasone sodium phosphate [From Celestone] Allergy (Mild, Verified 16:25) cefaclor [From Ceclor] Allergy (Mild, Verified 05/23/17 16:25) lisinopril Allergy (Mild, Verified 05/23/17 16:25) Penicillins Allergy (Mild, Verified 05/23/17 16:25) Home Medications: Losartan Potassium 50 mg [Cozaar 50 MG] 50 mg PO DAILY 04/23/13 [History] Omeprazole 20 MG [Prilosec 20 mg] 40 mg PO DAILY 04/23/13 [History] Docusate Sodium 100 mg [Colace 100 MG] 100 mg PO DAILY 08/19/14 [History] Lorazepam 0.5 mg [Ativan 0.5 MG] 1 mg PO TID 11/17/15 [History] Acetaminophen [Tylenol] 650 mg PO BID 03/04/17 [History] Ascorbic Acid 500 mg [Vitamin C 500 MG] 1,000 mg PO DAILY 03/04/17 [ History] Atorvastatin Calcium [Lipitor] 10 mg PO DAILY 03/04/17 [History] Calcium Citrate/Vitamin D3 [Citracal + D Caplet] 1 each PO DAILY 03/04/17 [ History] Calcium Polycarbophil [Fibercon] 625 mg BID 03/04/17 [History] Cetirizine HCl [Zyrtec] 10 mg PO DAILY 03/04/17 [History] Cranberry Conc/C/Bacill Coag [Cranberry Tablet] 1 each PO DAILY 03/04/17 [ History] Ferrous Sulfate [Iron] 325 mg PO BID 03/04/17 [History] Multivitamin [Multivitamins] 1 each PO DAILY 03/04/17 [History] Vitamin B Complex [Stress B] 1 each PO DAILY 03/04/17 [History] Vitamin B Complex [Vitamin B-100 Complex] 1 each PO DAILY 03/04/17 [History] Hx Tetanus, Diphtheria Vaccination/Date Given: Yes Hx Influenza Vaccination/Date Given: Yes Hx Pneumococcal Vaccination/Date Given: Yes Immunizations Up to Date: Yes - Review of Systems Constitutional: No Fever, No Chills Musculoskeletal: Joint Pain (left hammer toe), No Injury Neurological: No Focal Weakness - Past Medical History Pertinent Past Medical History: Yes Neurological History: No Pertinent History ENT History: Cataracts Cardiac History: Hypertension Respiratory History: No Pertinent History Endocrine Medical History: No Pertinent History Musculoskeletal History: No Pertinent History GI Medical History: GERD History: No Pertinent History Psycho-Social History: Anxiety, Bipolar, Other Female Reproductive Disorders: No Pertinent History - Past Surgical History Past Surgical History: Yes Neuro Surgical History: No Pertinent History Cardiac: No Pertinent History Respiratory: No Pertinent History Gastrointestinal: No Pertinent History Genitourinary: No Pertinent History Musculoskeletal: No Pertinent History Female Surgical History: Tubal Ligation Other Surgical History: TUBAL AND MOUTH SURGERY. Pt poor historian - Social History Smoking Status: Never smoker Exposure to second hand smoke: No Drug Use: none Patient Lives Alone: No Significant Family History: no pertinent family hx - Female History Hx Last Menstrual Period: post Hx Now: No - Nursing Vital Signs Nursing Vital Signs: Initial Vital Signs Temperature 97.2 F 05/23/17 16:17 Pulse Rate 64 05/23/17 16:17 Respiratory Rate 16 05/23/17 16:17 Blood Pressure 184/77 05/23/17 16:17 O2 Sat by Pulse Oximetry 97 05/23/17 16:17 Pain Scale Pain Intensity 4 - Physical Exam General Appearance: alert, other (flight of ideas) Eyes, Ears, Nose, Throat Exam: normal ENT inspection, moist mucous membranes Neck Exam: supple Cardiovascular/Respiratory Exam: regular rate/rhythm Mental Status Exam: alert, cooperative Skin Exam: warm, dry SpO2 Interpretation: normal SpO2: 97 Oxygen Delivery: Room Air Comments: left 2nd toe overlaps the 1st toe. No redness, swelling, bruising, or warmth. Pulses intact. - Course Nursing assessment & vital signs reviewed: Yes - Radiology Exams eft foot X-ray Interpretation: Interpreted by me (osteopenia, heel spur, left 2nd toe hammer toe, no fx) Ordered Tests: Active Orders 24 hr Category Date Time Status Splint STAT Care 05/23/17 16:34 Active FOOT (MINIMUM 3 VIEWS) Stat Exams 05/23/17 16:35 Taken Medication Summary Discontinued Medications Generic Name Dose Route Start Last Admin Trade Name Ottoniel PRN Reason Stop Dose Admin Acetaminophen 650 mg 05/23/17 16:34 Tylenol 325 Mg PO 05/23/17 16:35 STAT ONE Acetaminophen Confirm 05/23/17 16:45 Tylenol 325 Mg Administered 05/23/17 16:46 Dose 650 mg .ROUTE .STK-MED ONE - Progress Progress Note: 05/23/17 16:50 Advised foot follow up. Darco shoe and APAP. Counseled pt/family regarding: diagnosis, need for follow-up, rad results - Departure Time of Disposition: 16:50 Departure Disposition: Home Clinical Impression: Hammer toe of left foot Condition: Stable Critical Care Time: No Referrals: LENNIE BONNER [Primary Care Provider] - Instructions: Hammer Toe (DC) Additional Instructions: Darco post op shoe. Tylenol as directed for discomfort. See Dr Ross/Cruzito for follow up.
[2017-05-23] MEDS ORDERED: TYLENOL 325 MG ONE (16:45)
[2017-05-23 17:06] VITALS: BP 127/86; PULSE 88; O2SAT 99
--- NOTE | 2017-05-23 20:52 | XRAY ---
Indication: Hammertoe. Comparison: October 31, 2013. 3 nonweightbearing views of the left foot demonstrates new 2nd hammertoe deformity. Stable 1st MTP bunion deformity with mild degenerative changes and small plantar heel spur. No other bony, articular, or soft tissue abnormalities.
== END 2017-05-23 17:06 | disposition home or self-care (01) ==
LOC: ED 16:02
DX: M20.42 Other hammer toe(s) (acquired), left foot (principal); I10 Essential (primary) hypertension
CPT/HCPCS: 73630; 99283; A9270-GY

== ENCOUNTER 2017-10-21 06:12 | Day surgery (SDC) | payer MEDICARE ==
[~2017-10-21 06:12] MED LIST: Lactated Ringers 1,000 ML IV SCH
[2017-10-21] MEDS ORDERED: Ketamine HCl 50 MG/ML IV ONE (06:13)
[2017-10-21] MEDS ORDERED: DIPRIVAN 200 MG/20 ML IV ONE (06:13)
[2017-10-21 06:43] VITALS: O2SAT 96
[2017-10-21] MEDS ORDERED: Lactated Ringers 1,000 ML IV ONE (07:39)
[2017-10-21 08:25] VITALS: BP 129/82; PULSE 70
--- NOTE | 2017-10-21 09:52 | OP ---
SURGERY DATE/TIME: 10/21/2017 0706 PREOPERATIVE DIAGNOSES: 1) Rectal bleeding. 2) Iron deficiency anemia. 3) Abdominal pain. POSTOPERATIVE DIAGNOSES: 1) Normal EGD. 2) Normal colon. PROCEDURES: 1) EGD. 2) Colonoscopy. SURGEON: Vernon Su M.D. ANESTHESIA: MAC by Tao Salamanca CRNA. ESTIMATED BLOOD LOSS: None. SPECIMENS: None. DESCRIPTION OF PROCEDURE: After informed written consent was obtained, the patient was taken to the endoscopy suite. She had a bite block inserted and underwent monitored anesthesia. The endoscope was inserted in posterior oropharynx and under direct visualization the esophagus was traversed. The esophageal mucosa of gastroesophageal junction and gastric mucosa all had a normal mucosal appearance free of lesions or defects. The gastric antrum inspected and noted to be within normal limits. No ulcerations or bleeding was present. Pylorus traversed and the first and second portions of the duodenum was within normal limits. Pictures were taken from the duodenum, gastric antrum, gastroesophageal junction and esophagus all within normal limits. The scope was removed. The scopes were switched. Digital rectal exam showed normal sphincter tone and some mild external hemorrhoids. The scope was inserted in the rectum and sequentially the entire colonic mucosa was traversed. The level of cecum was reached and verified with direct visualization of ileocecal valve. Upon withdrawal careful mucosal inspection revealed no gross abnormalities. Prior to withdrawal retroflexion was performed and showed no internal lesions. Pictures were taken from the ileocecal valve and several other benefits representative areas throughout the scope. The patient was transferred to the recovery room in excellent condition.
== END 2017-10-21 09:02 | disposition home or self-care (01) ==
LOC: SDC 06:12
PROVIDERS: ATTEND Family Medicine
DX: K62.5 Hemorrhage of anus and rectum (principal); D50.9 Iron deficiency anemia, unspecified; R10.9 Unspecified abdominal pain; E78.5 Hyperlipidemia, unspecified; K21.9 Gastro-esophageal reflux disease without esophagitis
CPT/HCPCS: 99100; J2704

== ENCOUNTER 2018-01-08 02:43 | Emergency (ER) | payer MEDICARE ==
[2018-01-08] MEDS ORDERED: TORAdol 30 mg Injection IM ONE (03:26)
--- NOTE | 2018-01-08 03:26 | ERPHSYRPT ---
- History of Present Illness Time Seen by Provider: 01/08/18 03:17 Source: patient, EMS Exam Limitations: no limitations Patient Subjective Stated Complaint: pt states she fell yesterday and hurt her lt knee Triage Nursing Assessment: pt alert and oriented, answers questions approp. pt arrive per ambulance. ambulate to bathroom and back to the bed with no assist. respirations nonlabored with lungs cta. bruising and mild swelling noted to lt knee. pedal pulse and cap refill to lt wnl Physician History: The patient is a 72-year-old female brought in by ambulance from home where she states that she fell on a carpeted floor yesterday striking her left knee on the floor. She has been walking at home without difficulty. She states her left knee hurts. She also states that her chest hurts From the fall. She has tried Tylenol without relief. She has an appointment in the morning with her primary doctor about the fall. She also states she has been urinating alot. Her past medical history significant for bipolar, obsessive-compulsive behavior , hypertension, GERD, anxiety, high cholesterol, and hammertoe. Occurred: yesterday Reason for Fall: lost balance, fell from standing pos Injuries/Pain Location: chest, lower extremity (left knee) Loss of Consciousness: no loss of consciousness Quality: aching Severity of Pain-Max: mild Severity of Pain-Current: mild Modifying Factors: Improves With: pain medication (tylenol) Associated Symptoms (Fall): chest pain, extremity injury, No back pain, No neck pain, No shortness of breath, No trouble walking Allergies/Adverse Reactions: allopurinol sodium [From Aloprim] Allergy (Mild, Verified 01/08/18 02:58) states unknown reaction betamethasone [From Celestone] Allergy (Mild, Verified 01/08/18 02:58) unknown reaction betamethasone sodium phosphate [From Celestone] Allergy (Mild, Verified 02:58) states unknown reaction cefaclor [From Ceclor] Allergy (Mild, Verified 01/08/18 02:58) states unknown reaction lisinopril Allergy (Mild, Verified 01/08/18 02:58) states unknown reaction Penicillins Allergy (Mild, Verified 01/08/18 02:58) Home Medications: Losartan Potassium 50 mg [Cozaar 50 MG] 50 mg PO DAILY 04/23/13 [History] Omeprazole 20 MG [Prilosec 20 mg] 40 mg PO DAILY 04/23/13 [History] Docusate Sodium 100 mg [Colace 100 MG] 100 mg PO DAILY 08/19/14 [History] Lorazepam 0.5 mg [Ativan 0.5 MG] 1 mg PO TID 11/17/15 [History] Acetaminophen [Tylenol] 650 mg PO BID 03/04/17 [History] Ascorbic Acid 500 mg [Vitamin C 500 MG] 1,000 mg PO DAILY 03/04/17 [ History] Atorvastatin Calcium [Lipitor] 10 mg PO DAILY 03/04/17 [History] Calcium Citrate/Vitamin D3 [Citracal + D Caplet] 1 each PO DAILY 03/04/17 [ History] Calcium Polycarbophil [Fibercon] 1,150 mg BID 03/04/17 [History] Cetirizine HCl [Zyrtec] 10 mg PO DAILY 03/04/17 [History] Cranberry Conc/C/Bacill Coag [Cranberry Tablet] 1 each PO DAILY 03/04/17 [ History] Multivitamin [Multivitamins] 1 each PO DAILY 03/04/17 [History] Vitamin B Complex [Stress B] 1 each PO DAILY 03/04/17 [History] Hx Tetanus, Diphtheria Vaccination/Date Given: Yes Hx Influenza Vaccination/Date Given: No Hx Pneumococcal Vaccination/Date Given: No Immunizations Up to Date: Yes - Review of Systems Constitutional: No Fever, No Chills Eyes: No Symptoms Ears, Nose, & Throat: No Symptoms Respiratory: No Cough, No Dyspnea Cardiac: Chest Pain Abdominal/Gastrointestinal: No Abdominal Pain, No Nausea, No Vomiting, No Diarrhea Genitourinary Symptoms: No Dysuria Musculoskeletal: Fall, Injury Skin: No Rash Neurological: No Dizziness, No Focal Weakness, No Sensory Changes Psychological: No Symptoms Endocrine: No Symptoms Hematologic/Lymphatic: No Symptoms Immunological/Allergic: No Symptoms All Other Systems: Reviewed and Negative - Past Medical History Pertinent Past Medical History: Yes Neurological History: No Pertinent History ENT History: Cataracts Cardiac History: Hypertension Respiratory History: No Pertinent History Endocrine Medical History: No Pertinent History Musculoskeletal History: Arthritis GI Medical History: GERD History: No Pertinent History Psycho-Social History: Anxiety, Bipolar, Other Female Reproductive Disorders: No Pertinent History - Past Surgical History Past Surgical History: Yes Neuro Surgical History: No Pertinent History Cardiac: No Pertinent History Respiratory: No Pertinent History Gastrointestinal: No Pertinent History Genitourinary: No Pertinent History Musculoskeletal: No Pertinent History Female Surgical History: Tubal Ligation Other Surgical History: TUBAL AND MOUTH SURGERY, abhinav. cataract surgery. Pt poor historian - Social History Smoking Status: Never smoker Exposure to second hand smoke: No Drug Use: none Patient Lives Alone: Yes Significant Family History: no pertinent family hx - Nursing Vital Signs Nursing Vital Signs: Initial Vital Signs Temperature 97.3 F 01/08/18 02:49 Pulse Rate 71 01/08/18 02:49 Respiratory Rate 16 01/08/18 02:49 Blood Pressure 139/48 01/08/18 02:49 O2 Sat by Pulse Oximetry 99 01/08/18 02:49 Pain Scale Pain Intensity 10 - Az[place] Coma Score Best Eye Response (Talent): (4) open spontaneously Best Verbal Response (Azalia): (5) oriented Best Motor Response ([place]): (6) obeys commands Talent Total: 15 - Physical Exam General Appearance: no apparent distress, alert Head Injury: no evidence of injury Eye Exam: PERRL/EOMI ENT Exam: airway nml Neck Exam: normal inspection, No tenderness Respiratory/Chest Exam: normal breath sounds, No chest tenderness, No respiratory distress, No ecchymosis, No rib tenderness Cardiovascular Exam: normal heart sounds, regular rate/rhythm Gastrointestinal Exam: soft, No tenderness, No distention, No guarding, No ecchymosis Rectal Exam: not done Back Exam: normal inspection, No vertebral tenderness Extremity Exam: tenderness (Examination of the left knee: The patient moves her left knee in both extension and flexion without difficulty. There is a tiny contusion to the inferolateral aspect of the left knee that is tender to palpation.), No limited range of motion, No pain with movement Neurologic Exam: alert, oriented x 3, cooperative, sensation nml, No motor deficits Skin Exam: ecchymosis (small bruise to inferolateral left knee) SpO2 Interpretation: normal SpO2: 99 Oxygen Delivery: Room Air - Radiology Exams Chest X-ray Interpretation: Interpreted by me, Negative, No Fracture Left Knee X-ray Interpretation: Interpreted by me, Negative, No Fracture, No Subluxation Ordered Tests: Active Orders 24 hr Category Date Time Status CHEST 2 VIEWS (PA AND LAT) Stat Exams 01/08/18 03:26 Ordered KNEE (3 VIEWS) Stat Exams 01/08/18 03:26 Ordered Medication Summary Discontinued Medications Generic Name Dose Route Start Last Admin Trade Name Ottoniel PRN Reason Stop Dose Admin Ketorolac Tromethamine 60 mg 01/08/18 03:26 01/08/18 03:30 Toradol 30 Mg Injection IM 01/08/18 03:27 60 mg STAT ONE Administration Ketorolac Tromethamine Confirm 01/08/18 03:29 Toradol 30 Mg Injection Administered 01/08/18 03:30 Dose 60 mg .ROUTE .STK-MED ONE - Progress Progress: improved Progress Note: 01/08/18 04:06 Pt feels better after toradol 60 mg IM. Counseled pt/family regarding: diagnosis, need for follow-up, rad results - Departure Time of Disposition: 04:06 Departure Disposition: Home Clinical Impression: Fall, Contusion of left knee Condition: Stable Critical Care Time: No Referrals: LENNIE BONNER [Primary Care Provider] - Additional Instructions: You fell yesterday causing a bruise to your left knee. The x-ray of your chest and left knee were negative for any broken bones. You were given Toradol 60 mg by IM in the ER. Take naproxen 500 mg every 12 hours as needed. He may also take Tylenol 1000 mg every 6-8 hours as needed. Apply ice to your left knee for 10 minutes 2 or 3 times a day for the next one to 2 days. Follow-up later this morning with Dr. Bonner as originally scheduled. Prescriptions: Naproxen 500 mg PO BID PRN #14 tablet
[2018-01-08] MEDS ORDERED: TORAdol 30 mg Injection ONE (03:29)
[2018-01-08 04:06] VITALS: BP 153/69; PULSE 59
[2018-01-08 04:10] VITALS: O2SAT 99
[2018-01-08 04:41] LABS: Appearance CLEAR (CLEAR); Bilirubin NEGATIVE (NEGATIVE); Blood NEGATIVE Ery/ul (0-5); Glucose NEGATIVE (NEGATIVE); Ketones NEGATIVE (NEGATIVE); Leukocyte Esterase MODERATE (NEGATIVE); Nitrite NEGATIVE (NEGATIVE); Protein,Urine Dip NEGATIVE (Negative); Specific Gravity 1.011 (1.005-1.025); Urobilinogen NEGATIVE mg/dL (0-1)
--- NOTE | 2018-01-08 09:20 | XRAY ---
Indication: Pain following fall. Comparison: December 13, 2014. 3 views of the left knee obtained. Again no bony, articular, or soft tissue abnormalities.
--- NOTE | 2018-01-08 09:22 | XRAY ---
Indication: Status post fall. Comparison: November 10, 2016. PA/lateral chest again demonstrates normal heart and lungs. Bony thorax intact. No new/acute findings.
== END 2018-01-08 05:26 | disposition home or self-care (01) ==
LOC: ED 02:43
DX: S80.02XA Contusion of left knee, initial encounter (principal); M25.562 Pain in left knee; R07.9 Chest pain, unspecified; R35.0 Frequency of micturition; W18.30XA Fall on same level, unspecified, initial encounter; Y93.9 Activity, unspecified; Y92.009 Unspecified place in unspecified non-institutional (private) residence as the place of occurrence of the external cause; Z79.899 Other long term (current) drug therapy
CPT/HCPCS: 71046; 73562; 81001; 87077; 87086; 87186; 96372; 99284; J1885

== ENCOUNTER 2018-01-14 14:30 | Emergency (ER) | payer MEDICARE ==
--- NOTE | 2018-01-14 14:43 | ERPHSYRPT ---
- History of Present Illness Time Seen by Provider: 01/14/18 14:40 Source: patient, EMS Physician History: 72 y/o white female presents after a fall with pain in left hip, left knee and right hand. pt fell at home getting out of her car. no head injury. pt was ambulatory at scene. pt brought into ED by EMS Occurred: just prior to arrival Reason for Fall: lost balance Injuries/Pain Location: upper extremity (right hand), lower extremity (left hip and left knee) Quality: aching Severity of Pain-Max: mild Severity of Pain-Current: mild Modifying Factors: Improves With: movement Associated Symptoms (Fall): extremity injury (right hand, left hip and left knee ), No abdominal pain, No back pain, No confusion, No chest pain, No headache, No muscle spasms, No nausea, No neck pain, No shortness of breath, No slurred speech, No vomiting, No vision changes Allergies/Adverse Reactions: allopurinol sodium [From Aloprim] Allergy (Mild, Verified 01/14/18 14:54) states unknown reaction betamethasone [From Celestone] Allergy (Mild, Verified 01/14/18 14:54) unknown reaction betamethasone sodium phosphate [From Celestone] Allergy (Mild, Verified 14:54) states unknown reaction cefaclor [From Ceclor] Allergy (Mild, Verified 01/14/18 14:54) states unknown reaction lisinopril Allergy (Mild, Verified 01/14/18 14:54) states unknown reaction Penicillins Allergy (Mild, Verified 01/14/18 14:54) Home Medications: Losartan Potassium 50 mg [Cozaar 50 MG] 50 mg PO DAILY 04/23/13 [History] Omeprazole 20 MG [Prilosec 20 mg] 40 mg PO DAILY 04/23/13 [History] Docusate Sodium 100 mg [Colace 100 MG] 100 mg PO DAILY 08/19/14 [History] Lorazepam 0.5 mg [Ativan 0.5 MG] 1 mg PO TID 11/17/15 [History] Acetaminophen [Tylenol] 650 mg PO BID 03/04/17 [History] Ascorbic Acid 500 mg [Vitamin C 500 MG] 1,000 mg PO DAILY 03/04/17 [ History] Atorvastatin Calcium [Lipitor] 10 mg PO DAILY 03/04/17 [History] Calcium Citrate/Vitamin D3 [Citracal + D Caplet] 1 each PO DAILY 03/04/17 [ History] Calcium Polycarbophil [Fibercon] 1,150 mg BID 03/04/17 [History] Cetirizine HCl [Zyrtec] 10 mg PO DAILY 03/04/17 [History] Cranberry Conc/C/Bacill Coag [Cranberry Tablet] 1 each PO DAILY 03/04/17 [ History] Multivitamin [Multivitamins] 1 each PO DAILY 03/04/17 [History] Vitamin B Complex [Stress B] 1 each PO DAILY 03/04/17 [History] Hx Tetanus, Diphtheria Vaccination/Date Given: Yes Hx Influenza Vaccination/Date Given: No Hx Pneumococcal Vaccination/Date Given: No - Review of Systems Constitutional: No Symptoms, No Fever Eyes: No Symptoms Ears, Nose, & Throat: No Symptoms, No Ear Pain, No Nose Congestion, No Painful Swallowing, No Stridor Respiratory: No Symptoms, No Cough, No Dyspnea, No Stridor, No Wheezing Cardiac: No Symptoms, No Chest Pain, No Palpitations, No Syncope Abdominal/Gastrointestinal: No Symptoms, No Abdominal Pain, No Nausea, No Vomiting, No Diarrhea Genitourinary Symptoms: No No Symptoms, No Dysuria, No Frequency, No Hematuria Musculoskeletal: Fall, Injury Skin: No Symptoms Neurological: No Symptoms Psychological: No Symptoms Endocrine: No Symptoms Hematologic/Lymphatic: No Symptoms Immunological/Allergic: No Symptoms All Other Systems: Reviewed and Negative - Past Medical History Pertinent Past Medical History: Yes Neurological History: No Pertinent History ENT History: Cataracts Cardiac History: Hypertension Respiratory History: No Pertinent History Endocrine Medical History: No Pertinent History Musculoskeletal History: Arthritis GI Medical History: GERD History: No Pertinent History Psycho-Social History: Anxiety, Bipolar, Other Female Reproductive Disorders: No Pertinent History - Past Surgical History Past Surgical History: Yes Neuro Surgical History: No Pertinent History Cardiac: No Pertinent History Respiratory: No Pertinent History Gastrointestinal: No Pertinent History Genitourinary: No Pertinent History Musculoskeletal: No Pertinent History Female Surgical History: Tubal Ligation Other Surgical History: TUBAL AND MOUTH SURGERY, abhinav. cataract surgery. Pt poor historian - Social History Smoking Status: Never smoker Exposure to second hand smoke: No Drug Use: none Patient Lives Alone: Yes Significant Family History: no pertinent family hx - Nursing Vital Signs Nursing Vital Signs: Initial Vital Signs Temperature 98 F 01/14/18 14:39 Pulse Rate 78 01/14/18 14:39 Respiratory Rate 18 01/14/18 14:39 Blood Pressure 120/70 01/14/18 14:39 O2 Sat by Pulse Oximetry 98 01/14/18 14:39 Pain Scale Pain Intensity 5 - [place] Coma Score Best Eye Response ([place]): (4) open spontaneously Best Verbal Response ([place]): (5) oriented Best Motor Response ([place]): (6) obeys commands [place] Total: 15 - Physical Exam General Appearance: no apparent distress, alert, anxiety Head Injury: no evidence of injury Eye Exam: PERRL/EOMI, eyes nml inspection ENT Exam: airway nml, nml ext.inspection, No evidence of ENT injury, No dental injury Neck Exam: supple, trachea midline, full range of motion, normal alignment, normal inspection, No focal neuro deficit, No limited range of motion, No muscle spasm, No paraspinous muscle tender, No pain on movement of neck, No stiff neck, No tenderness Respiratory/Chest Exam: normal breath sounds, No chest tenderness, No respiratory distress, No decreased breath sounds, No rhonchi, No wheezing, No accessory muscle use Cardiovascular Exam: normal heart sounds, regular rate/rhythm Gastrointestinal Exam: soft, normal bowel sounds, No tenderness, No guarding, No rebound Rectal Exam: not done Back Exam: normal inspection, normal range of motion, No CVA tenderness, No vertebral tenderness Extremity Exam: normal inspection, normal range of motion, pelvis stable Neurologic Exam: alert, oriented x 3, 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 - Progress Progress: unchanged Counseled pt/family regarding: diagnosis, need for follow-up, rad results - Departure Time of Disposition: 16:22 Departure Disposition: Home Clinical Impression: Fall, Contusion Condition: Stable Critical Care Time: No Referrals: LENNIE BONNER [Primary Care Provider] - Additional Instructions: ice pack to all tender sites. follow up with primary doctor for further management
[2018-01-14 14:49] VITALS: O2SAT 98
--- NOTE | 2018-01-14 16:05 | XRAY ---
Indication: Pain following fall. Comparison: AP pelvis June 22, 2013. 2 views of the left hip obtained. Again no bony, articular, or soft tissue abnormalities.
--- NOTE | 2018-01-14 16:07 | XRAY ---
Indication: Pain following fall. Comparison: None 3 views of the right hand demonstrates mild degenerative changes of all IP joints, 3rd MCP, and base of the 1st metacarpal. No other bony, articular, or soft tissue abnormalities.
--- NOTE | 2018-01-14 16:10 | XRAY ---
Indication: Pain following fall. Comparison: January 08, 2018. AP/lateral left knee obtained. Again no bone, articular, or soft tissue abnormalities.
[2018-01-14 16:51] VITALS: BP 134/87; PULSE 77
== END 2018-01-14 16:48 | disposition home or self-care (01) ==
LOC: ED 14:30
DX: M25.552 Pain in left hip (principal); M25.562 Pain in left knee; M79.641 Pain in right hand; W17.89XA Other fall from one level to another, initial encounter; Z79.899 Other long term (current) drug therapy
CPT/HCPCS: 73130; 73502; 73560; 99283

== ENCOUNTER 2018-04-24 14:00 | Observation (INO) | payer MEDICARE ==
--- NOTE | 2018-04-24 14:31 | ERPHSYRPT ---
- History of Present Illness Time Seen by Provider: 04/24/18 14:28 Source: patient Exam Limitations: no limitations Patient Subjective Stated Complaint: Pt states "I have had diarrhea and belly pain and I am really stressed and now I have loose stools." Triage Nursing Assessment: Pt alert and oriented X 3, skin pwd. PT ambulates with an upright steady gait, able to speak in clear full sentencs. Pt in no apparent respiratory distress. Physician History: 73-year-old white female with history of cataracts, GERD, anxiety, bipolar disorder. Patient arrives with complaints of feeling as if she has been anxious she states that she's been having loose stools and diarrhea since yesterday she arrives somewhat of a vague complaints of abdominal pain. No vomiting. Patient seems to be obsessed possibly having her toenails clipped. Past medical history includes cataracts, GERD, anxiety, bipolar. Past surgical history includes tubal ligation, mild surgery, cataract surgery. Timing/Duration: yesterday Severity: mild Modifying Factors: Improves With: nothing, other (states she's been anxious) Associated Symptoms: abdominal pain, No nausea, No vomiting, No shortness of breath, No heartburn, No diaphoresis, No cough, No chills, No chest pain, No fever, No headaches, No loss of appetite, No malaise, No rash, No syncope, No seizure, No weakness Allergies/Adverse Reactions: allopurinol sodium [From Aloprim] Allergy (Mild, Verified 01/14/18 14:54) states unknown reaction betamethasone [From Celestone] Allergy (Mild, Verified 01/14/18 14:54) unknown reaction betamethasone sodium phosphate [From Celestone] Allergy (Mild, Verified 14:54) states unknown reaction cefaclor [From Ceclor] Allergy (Mild, Verified 01/14/18 14:54) states unknown reaction lisinopril Allergy (Mild, Verified 01/14/18 14:54) states unknown reaction Penicillins Allergy (Mild, Verified 01/14/18 14:54) Home Medications: Losartan Potassium 50 mg [Cozaar 50 MG] 50 mg PO DAILY 04/23/13 [History] Omeprazole 20 MG [Prilosec 20 mg] 40 mg PO DAILY 04/23/13 [History] Docusate Sodium 100 mg [Colace 100 MG] 100 mg PO DAILY 08/19/14 [History] Lorazepam 0.5 mg [Ativan 0.5 MG] 1 mg PO TID 11/17/15 [History] Acetaminophen [Tylenol] 650 mg PO BID 03/04/17 [History] Ascorbic Acid 500 mg [Vitamin C 500 MG] 1,000 mg PO DAILY 03/04/17 [ History] Atorvastatin Calcium [Lipitor] 10 mg PO DAILY 03/04/17 [History] Calcium Citrate/Vitamin D3 [Citracal + D Caplet] 1 each PO DAILY 03/04/17 [ History] Calcium Polycarbophil [Fibercon] 1,150 mg BID 03/04/17 [History] Cetirizine HCl [Zyrtec] 10 mg PO DAILY 03/04/17 [History] Cranberry Conc/C/Bacill Coag [Cranberry Tablet] 1 each PO DAILY 03/04/17 [ History] Multivitamin [Multivitamins] 1 each PO DAILY 03/04/17 [History] Vitamin B Complex [Stress B] 1 each PO DAILY 03/04/17 [History] Hx Tetanus, Diphtheria Vaccination/Date Given: Yes Hx Influenza Vaccination/Date Given: Yes Hx Pneumococcal Vaccination/Date Given: No Immunizations Up to Date: Yes - Review of Systems Constitutional: No Fever, No Chills Eyes: No Symptoms Ears, Nose, & Throat: No Symptoms Respiratory: No Cough, No Dyspnea Cardiac: No Chest Pain, No Edema, No Syncope Abdominal/Gastrointestinal: Abdominal Pain, No Nausea, No Vomiting, No Constipation, No Hematemesis, No Hematochezia, No Melena, No Dysphagia, No Appetite Changes Genitourinary Symptoms: No Dysuria Musculoskeletal: Other (Patient states she has chronic enlarged toenails), No Back Pain, No Neck Pain Skin: No Rash Neurological: No Dizziness, No Focal Weakness, No Sensory Changes Psychological: No Symptoms Endocrine: No Symptoms All Other Systems: Reviewed and Negative - Past Medical History Pertinent Past Medical History: Yes Neurological History: No Pertinent History ENT History: Cataracts Cardiac History: Hypertension Respiratory History: No Pertinent History Endocrine Medical History: No Pertinent History Musculoskeletal History: Arthritis GI Medical History: GERD History: No Pertinent History Psycho-Social History: Anxiety, Bipolar, Other Female Reproductive Disorders: No Pertinent History - Past Surgical History Past Surgical History: Yes Neuro Surgical History: No Pertinent History Cardiac: No Pertinent History Respiratory: No Pertinent History Gastrointestinal: No Pertinent History Genitourinary: No Pertinent History Musculoskeletal: No Pertinent History Female Surgical History: Tubal Ligation Other Surgical History: TUBAL AND MOUTH SURGERY, abhinav. cataract surgery. Pt poor historian - Social History Smoking Status: Never smoker Exposure to second hand smoke: No Drug Use: none Patient Lives Alone: No Significant Family History: no pertinent family hx - Female History Hx Now: No - Nursing Vital Signs Nursing Vital Signs: Initial Vital Signs Temperature 98.2 F 04/24/18 14:00 Pulse Rate 60 04/24/18 14:00 Respiratory Rate 16 04/24/18 14:00 Blood Pressure 175/74 04/24/18 14:00 O2 Sat by Pulse Oximetry 97 04/24/18 14:00 Pain Scale Pain Intensity 4 - Physical Exam General Appearance: no apparent distress, alert Eye Exam: PERRL/EOMI Ears, Nose, Throat Exam: normal ENT inspection, TMs normal, pharynx normal, moist mucous membranes Neck Exam: normal inspection, non-tender, supple, full range of motion Respiratory Exam: normal breath sounds, lungs clear, No respiratory distress Cardiovascular Exam: regular rate/rhythm, normal heart sounds, normal peripheral pulses, capillary refill <2 sec Gastrointestinal/Abdomen Exam: soft, normal bowel sounds, No tenderness, No mass Back Exam: normal inspection, normal range of motion, No CVA tenderness, No vertebral tenderness Extremity Exam: normal inspection, normal range of motion, pelvis stable, other (patient with chronic hypertrophied large toe nails, appear to be trimmed no sign of inflammation, left second toe crosses over proximal left great toe) Neurologic Exam: alert, oriented x 3, cooperative, 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, normal mood/affect, nml cerebellar function, nml station & gait, sensation nml, No motor deficits Skin Exam: normal color, warm, dry, No rash Lymphatic Exam: No adenopathy SpO2 Interpretation: normal (97%) SpO2: 97 - Course Nursing assessment & vital signs reviewed: Yes EKG Interpreted by Me: RATE (52 bpm), Sinus Wilian, NORMAL AXIS, Other (EKG: Sinus bradycardia, 52 bpm, normal axis, no acute ST or T wave changes, normal EKG) Rhythm Strip: Rate Ordered Tests: Active Orders 24 hr Category Date Time Status EKG-ER Only STAT Care 04/24/18 15:07 Active AMYLASE Stat Lab 04/24/18 14:50 Completed CBC W DIFF Stat Lab 04/24/18 14:50 Completed CMP Stat Lab 04/24/18 14:50 Completed LIPASE Stat Lab 04/24/18 14:50 Completed TROPONIN Q3H Lab 04/24/18 14:50 Completed TROPONIN Q3H Lab 04/24/18 18:15 Ordered TROPONIN Q3H Lab 04/24/18 21:15 Ordered TROPONIN Q3H Lab 04/25/18 00:15 Ordered TROPONIN Q3H Lab 04/25/18 03:15 Ordered UA W/RFX UR CULTURE Stat Lab 04/24/18 15:18 Completed Transfer Order Routine Transfer 04/24/18 Ordered Lab/Rad Data: Laboratory Result Diagrams 04/24/18 14:50 04/24/18 14:50 Laboratory Results 04/24/18 04/24/18 04/24/18 Range/Units 15:18 14:50 14:50 WBC (4.0-10.5) K/mm3 RBC (4.1-5.4) M/mm3 Hgb (12.0-16.0) gm/dl Hct (35-47) % MCV (78-100) fl MCH (26-32) pg MCHC (32-36) g/dl RDW (11.5-14.0) % Plt Count (150-450) K/mm3 MPV (6-9.5) fl Gran % (36.0-66.0) % Eos # (Auto) (0-0.5) Absolute Lymphs (auto) (1.0-4.6) Absolute Monos (auto) (0.0-1.3) Lymphocytes % (24.0-44.0) % Monocytes % (0.0-12.0) % Eosinophils % (0.00-5.0) % Basophils % (0.0-0.4) % Absolute Granulocytes (1.4-6.9) Basophils # (0-0.4) Sodium 137 (137-145) mmol/L Potassium 5.8 H (3.5-5.1) mmol/L Chloride 107 (98-107) mmol/L Carbon Dioxide 25 (22-30) mmol/L Anion Gap 12.1 (5-15) MEQ/L BUN 29 H (7-17) mg/dL Creatinine 0.97 (0.52-1.04) mg/dL Estimated GFR 60.0 ML/MIN Glucose 87 (74-106) mg/dL Calcium 9.4 (8.4-10.2) mg/dL Total Bilirubin 0.40 (0.2-1.3) mg/dL AST 24 (14-36) U/L ALT 21 (0-35) U/L Alkaline Phosphatase 114 (38-126) U/L Troponin I < 0.012 (0.000-0.034) ng/mL Serum Total Protein 6.5 (6.3-8.2) g/dL Albumin 3.7 (3.5-5.0) g/dL Amylase 119 H (30-110) U/L Lipase 119 (23-300) U/L Urine Color YELLOW (YELLOW) Urine Appearance SLIGHTLY CLOUDY (CLEAR) Urine pH 6.0 (5-6) Ur Specific [place] 1.006 (1.005-1.025) Urine Protein NEGATIVE (Negative) Urine Ketones NEGATIVE (NEGATIVE) Urine Blood MODERATE (0-5) Evans/ul Urine Nitrite NEGATIVE (NEGATIVE) Urine Bilirubin NEGATIVE (NEGATIVE) Urine Urobilinogen NEGATIVE (0-1) mg/dL Ur Leukocyte Esterase NEGATIVE (NEGATIVE) Urine WBC (Auto) NONE (0-5) /HPF Urine RBC (Auto) NONE (0-2) /HPF U Hyaline Cast (Auto) 0-2 (0-2) /LPF U Epithel Cells (Auto) NONE (FEW) /HPF Urine Bacteria (Auto) NONE (NEGATIVE) /HPF Urine Culture Reflexed NO (NO) Urine Glucose NEGATIVE (NEGATIVE) mg/dL 04/24/18 Range/Units 14:50 WBC 5.3 (4.0-10.5) K/mm3 RBC 2.76 L (4.1-5.4) M/mm3 Hgb 8.4 L (12.0-16.0) gm/dl Hct 26.6 L (35-47) % MCV 96.4 (78-100) fl MCH 30.4 (26-32) pg MCHC 31.6 L (32-36) g/dl RDW 13.4 (11.5-14.0) % Plt Count 196 (150-450) K/mm3 MPV 10.3 H (6-9.5) fl Gran % 56.6 (36.0-66.0) % Eos # (Auto) 0.21 (0-0.5) Absolute Lymphs (auto) 1.56 (1.0-4.6) Absolute Monos (auto) 0.49 (0.0-1.3) Lymphocytes % 29.5 (24.0-44.0) % Monocytes % 9.3 (0.0-12.0) % Eosinophils % 4.0 (0.00-5.0) % Basophils % 0.6 (0.0-0.4) % Absolute Granulocytes 2.99 (1.4-6.9) Basophils # 0.03 (0-0.4) Sodium (137-145) mmol/L Potassium (3.5-5.1) mmol/L Chloride (98-107) mmol/L Carbon Dioxide (22-30) mmol/L Anion Gap (5-15) MEQ/L BUN (7-17) mg/dL Creatinine (0.52-1.04) mg/dL Estimated GFR ML/MIN Glucose (74-106) mg/dL Calcium (8.4-10.2) mg/dL Total Bilirubin (0.2-1.3) mg/dL AST (14-36) U/L ALT (0-35) U/L Alkaline Phosphatase (38-126) U/L Troponin I (0.000-0.034) ng/mL Serum Total Protein (6.3-8.2) g/dL Albumin (3.5-5.0) g/dL Amylase (30-110) U/L Lipase (23-300) U/L Urine Color (YELLOW) Urine Appearance (CLEAR) Urine pH (5-6) Ur Specific [place] (1.005-1.025) Urine Protein (Negative) Urine Ketones (NEGATIVE) Urine Blood (0-5) Evans/ul Urine Nitrite (NEGATIVE) Urine Bilirubin (NEGATIVE) Urine Urobilinogen (0-1) mg/dL Ur Leukocyte Esterase (NEGATIVE) Urine WBC (Auto) (0-5) /HPF Urine RBC (Auto) (0-2) /HPF U Hyaline Cast (Auto) (0-2) /LPF U Epithel Cells (Auto) (FEW) /HPF Urine Bacteria (Auto) (NEGATIVE) /HPF Urine Culture Reflexed (NO) Urine Glucose (NEGATIVE) mg/dL - Progress Progress: improved Progress Note: 04/24/18 16:17 This is a 73-year-old white female with history of cataracts, GERD, bipolar, obsessive-compulsive disorder, She arrives with complaint of anxiety states that her belly has been bothering her she states she's had diarrhea she is not vomiting. She states that yesterday she had pain in her chest radiating to her left arm which resolved and has no pain at this time. Patient is a very very difficult person to get a history from she had tenderness to do well on the fact that somebody has not clipped her toenails She is not short of breath she is not vomiting she is feeling better after receiving IV fluids. Patient's vitals are stable EKG sinus arrhythmia with bradycardia 52 bpm normal axis no acute ST or T wave changes troponin is normal urinalysis is normal, chemistry essentially normal with the exception potassium is 5.8. Patient's CBC white blood cell 5.3 hemoglobin 8.4 hematocrit 26.6 platelets 196 Impression 1 abdominal pain. 2. Hyperkalemia. 3. Anemia Plan Will discuss case with Dr. Su consider IV normal saline observation telemetry. 04/24/18 16:46 Patient is not given aspirin patient has no chest pain today she did have pain yesterday. She has a hemoglobin of 8.4. Case is discussed with Dr. Su will place patient on observation telemetry provide IV normal saline hematoma stools 3. Continued troponin. - Departure Time of Disposition: 16:47 Departure Disposition: Observation Clinical Impression: Hyperkalemia Abdominal pain Qualifiers: Abdominal location: generalized Qualified Code(s): R10.84 - Generalized abdominal pain Anemia Qualifiers: Anemia type: unspecified type Qualified Code(s): D64.9 - Anemia, unspecified Condition: Fair Critical Care Time: No Referrals: LENNIE BONNER [Primary Care Provider] -
[2018-04-24 15:07] LABS: BASOPHIL % 0.6 % (0.0-0.4); Basophil (Absolute #) 0.03 (0-0.4); Eosinophil (Absolute #) 0.21 (0-0.5); Granulocytes % 56.6 % (36.0-66.0); Hematocrit 26.6 % (35-47); Hemoglobin 8.4 gm/dl (12.0-16.0); Lymphocyte (Absolute #) 1.56 (1.0-4.6); Lymphocytes % 29.5 % (24.0-44.0); Mean Cell Volume 96.4 fl (78-100); Mean Corpuscular Hemoglobin 30.4 pg (26-32); Mean Corpuscular Hgb Concent. 31.6 g/dl (32-36); Mean Platelet Volume 10.3 fl (6-9.5); Monocyte (Absolute #) 0.49 (0.0-1.3); Monocytes % 9.3 % (0.0-12.0); Platelet Count 196 K/mm3 (150-450); Red Blood Count 2.76 M/mm3 (4.1-5.4); Red Cell Distribution Width 13.4 % (11.5-14.0); White Blood Count 5.3 K/mm3 (4.0-10.5)
[2018-04-24 15:08] LABS: ALBUMIN 3.7 g/dL (3.5-5.0); ANION GAP 12.1 MEQ/L (5-15); BILIRUBIN,TOTAL 0.4 mg/dL (0.2-1.3); Calcium 9.4 mg/dL (8.4-10.2); Creatinine 1 0.97 mg/dL (0.52-1.04); Potassium 5.8 mmol/L (3.5-5.1); Total Protein 6.5 g/dL (6.3-8.2)
[2018-04-24 16:05] LABS: Appearance SLIGHTLY CLOUDY (CLEAR); Bilirubin NEGATIVE (NEGATIVE); Blood MODERATE Ery/ul (0-5); Glucose NEGATIVE (NEGATIVE); Hyaline Casts 0-2 /LPF (0-2); Ketones NEGATIVE (NEGATIVE); Leukocyte Esterase NEGATIVE (NEGATIVE); Nitrite NEGATIVE (NEGATIVE); Protein,Urine Dip NEGATIVE (Negative); Specific Gravity 1.006 (1.005-1.025); Urobilinogen NEGATIVE mg/dL (0-1)
[2018-04-24] MEDS: Sodium Chloride 0.9% 1000 ML 1,000 ML IV SCH (18:19)
[2018-04-24] MEDS: TYLENOL 325 MG PO SCH (19:59)
[2018-04-24] MEDS: Ativan 1 MG PO SCH (20:00)
[2018-04-24] MEDS ORDERED: Naprosyn 500 MG PO SCH (22:00)
[2018-04-24] MEDS ORDERED: Artificial Tears 15 ML OP SCH (22:00)
[2018-04-24] MEDS ORDERED: Zocor 10MG PO SCH (22:00)
[2018-04-25] MEDS: Sodium Chloride 0.9% 1000 ML 1,000 ML IV SCH (04:14)
[2018-04-25 04:41] LABS: ALBUMIN 3.2 g/dL (3.5-5.0); ALKALINE PHOSPHATASE 75 U/L (38-126); ANION GAP 7.9 MEQ/L (5-15); BLOOD UREA NITROGEN 23 mg/dL (7-17); CHLORIDE 111 mmol/L (98-107); Calcium 8.9 mg/dL (8.4-10.2); Carbon Dioxide 25 mmol/L (22-30); Creatinine 1 0.82 mg/dL (0.52-1.04); Glucose 85 mg/dL (74-106); Potassium 4.9 mmol/L (3.5-5.1); SGOT/AST 21 U/L (14-36); SGPT/ALT 18 U/L (0-35); SODIUM 139 mmol/L (137-145); Total Protein 5.8 g/dL (6.3-8.2)
[2018-04-25 05:21] LABS: BASOPHIL % 0.7 % (0.0-0.4); Basophil (Absolute #) 0.03 (0-0.4); Eosinophil % 6.6 % (0.00-5.0); Hematocrit 25.5 % (35-47); Hemoglobin 8.1 gm/dl (12.0-16.0); Lymphocyte (Absolute #) 1.51 (1.0-4.6); Mean Cell Volume 95.9 fl (78-100); Mean Corpuscular Hgb Concent. 31.8 g/dl (32-36); Mean Platelet Volume 10.8 fl (6-9.5); Monocytes % 8.7 % (0.0-12.0); Platelet Count 181 K/mm3 (150-450); Red Blood Count 2.66 M/mm3 (4.1-5.4); Red Cell Distribution Width 13.4 % (11.5-14.0); White Blood Count 4.6 K/mm3 (4.0-10.5)
[2018-04-25 05:28] LABS: Mean Corpuscular Hemoglobin 30.4 pg (26-32)
[2018-04-25] MEDS ORDERED: Naprosyn 500 MG PO PRN (08:23)
[2018-04-25] MEDS: Ativan 1 MG PO SCH (08:30)
[2018-04-25] MEDS: TYLENOL 325 MG PO SCH (08:30)
--- NOTE | 2018-04-25 09:53 | PCM.SSS ---
History of Present Illness - Chief Complaint Chief Complaint: hyperkalemia.abd pain. History of Present Illness: is a 73 year old female who arrived to the ER last night complaining of abdominal pain and diarrhea, her potassium was mildly elevated so she was admitted. she had a bout of chest pain the day prior to arrival but troponin was negative on arrival, EKG shows no acute changes and patient has been ruled out. This morning she denies any complaints of pain, she is on a clear liquid diet and is fixated on having cheerios and sprite. she has no chest pain, has had no diarrhea. was found to be anemic on arrival but on review of records had iron/b12/folate checked in March by Dr Bonner and her anemia is chronic, she has had no blood loss and h/h are stable since admission. - Review of Systems Constitutional: No Fever, No Chills Cardiac: Chest Pain (resolved) Abdominal/Gastrointestinal: Abdominal Pain (resolved), Diarrhea, No Nausea, No Vomiting Genitourinary Symptoms: No Dysuria Skin: No Rash All Other Systems: Reviewed and Negative Medications & Allergies Home Medications: Home Medication List Losartan Potassium 50 mg [Cozaar 50 MG] 50 mg PO DAILY 04/23/13 [History Confirmed 04/24/18] Omeprazole 20 MG [Prilosec 20 mg] 40 mg PO DAILY 04/23/13 [History Confirmed ] Docusate Sodium 100 mg [Colace 100 MG] 100 mg PO DAILY 08/19/14 [History Confirmed 04/24/18] Lorazepam 0.5 mg [Ativan 0.5 MG] 1 mg PO TID 11/17/15 [History Confirmed 04/24/18] Acetaminophen [Tylenol] 650 mg PO BID 03/04/17 [History Confirmed 04/24/18] Ascorbic Acid 500 mg [Vitamin C 500 MG] 1,000 mg PO DAILY 03/04/17 [ History Confirmed 04/24/18] Atorvastatin Calcium [Lipitor] 10 mg PO DAILY 03/04/17 [History Confirmed ] Calcium Citrate/Vitamin D3 [Citracal + D Caplet] 1 each PO DAILY 03/04/17 [ History Confirmed 04/24/18] Calcium Polycarbophil [Fibercon] 1,150 mg BID 03/04/17 [History Confirmed ] Cetirizine HCl [Zyrtec] 10 mg PO DAILY 03/04/17 [History Confirmed 04/24/18] Cranberry Conc/C/Bacill Coag [Cranberry Tablet] 1 each PO DAILY 03/04/17 [ History Confirmed 04/24/18] Multivitamin [Multivitamins] 1 each PO DAILY 03/04/17 [History Confirmed ] Vitamin B Complex [Stress B] 1 each PO DAILY 03/04/17 [History Confirmed ] Naproxen 500 mg PO BID PRN #14 tablet 01/08/18 [Rx Confirmed 04/24/18] Dextran 70/Hypromellose [Natural Balance Tears Eye Drop] 3 drops TID 04/24/18 [ History Confirmed 04/24/18] Paliperidone Palmitate [Invega Sustenna 156 mg] 1 dose IM UD 04/24/18 [History Confirmed 04/24/18] Allergies/Adverse Reactions: Allergies Allergy/AdvReac Type Severity Reaction Status Date / Time allopurinol sodium Allergy Mild Verified 01/14/18 14:54 [From Aloprim] betamethasone Allergy Mild Verified 01/14/18 14:54 [From Celestone] betamethasone sodium Allergy Mild Verified 01/14/18 14:54 phosphate [From Celestone] cefaclor [From Ceclor] Allergy Mild Verified 01/14/18 14:54 lisinopril Allergy Mild Verified 01/14/18 14:54 Penicillins Allergy Mild Verified 01/14/18 14:54 - Past Medical History Past Medical History: Yes Neurological History: No Pertinent History ENT History: Cataracts Cardiac History: Hypertension Respiratory History: No Pertinent History Endocrine Medical History: No Pertinent History Musculoskelatal History: Arthritis GI Medical History: GERD History: No Pertinent History Pyscho-Social History: Anxiety, Bipolar, Other Reproductive Disorders: No Pertinent History - Female History Are you now?: No - Past Surgical History Past Surgical History: Yes Neuro Surgical History: No Pertinent History Cardiac History: No Pertinent History Respiratory Surgery: No Pertinent History GI Surgical History: No Pertinent History Genitourinary Surgical Hx: No Pertinent History Musculskeletal Surgical Hx: No Pertinent History Female Surgical History: Tubal Ligation Other Surgical History: TUBAL AND MOUTH SURGERY, abhinav. cataract surgery. Pt poor historian - Social History Smoking Status: Never smoker Exposure to second hand smoke: No Alcohol: None Drug Use: none Significant Family History: no pertinent family hx - Physical Exam Vital Signs: Vital Signs - 24 hr Temp Pulse Resp BP Pulse Ox 04/25/18 08:35 96 04/25/18 07:45 96.3 F 72 18 124/58 95 04/25/18 04:00 97.7 F 60 14 139/63 97 04/25/18 00:00 97.7 F 60 12 170/69 99 04/24/18 20:00 97.4 F 58 L 16 171/69 04/24/18 19:56 98 04/24/18 18:35 98.2 F 50 L 20 171/77 97 04/24/18 17:07 97 04/24/18 16:53 98.2 F 50 L 16 173/72 98 04/24/18 15:02 60 173/71 97 04/24/18 14:00 98.2 F 60 16 175/74 97 General Appearance: no apparent distress, alert Neurologic Exam: alert, oriented x 3, cooperative, normal mood/affect, nml cerebellar function, nml station & gait, sensation nml, No motor deficits Eye Exam: PERRL/EOMI, eyes nml inspection Respiratory Exam: normal breath sounds Cardiovascular Exam: regular rate/rhythm, normal heart sounds, normal peripheral pulses Gastrointestinal/Abdomen Exam: soft, normal bowel sounds, No tenderness, No mass Extremity Exam: normal inspection, normal range of motion, pelvis stable Skin Exam: normal color, warm, dry, No rash Results - Labs Lab/Micro Results: Lab Results-Last 24 Hours 04/24/18 04/24/18 04/24/18 Range/Units 14:50 14:50 14:50 WBC 5.3 (4.0-10.5) K/mm3 RBC 2.76 L (4.1-5.4) M/mm3 Hgb 8.4 L (12.0-16.0) gm/dl Hct 26.6 L (35-47) % MCV 96.4 (78-100) fl MCH 30.4 (26-32) pg MCHC 31.6 L (32-36) g/dl RDW 13.4 (11.5-14.0) % Plt Count 196 (150-450) K/mm3 MPV 10.3 H (6-9.5) fl Gran % 56.6 (36.0-66.0) % Eos # (Auto) 0.21 (0-0.5) Absolute Lymphs (auto) 1.56 (1.0-4.6) Absolute Monos (auto) 0.49 (0.0-1.3) Lymphocytes % 29.5 (24.0-44.0) % Monocytes % 9.3 (0.0-12.0) % Eosinophils % 4.0 (0.00-5.0) % Basophils % 0.6 (0.0-0.4) % Absolute Granulocytes 2.99 (1.4-6.9) Basophils # 0.03 (0-0.4) Sodium 137 (137-145) mmol/L Potassium 5.8 H (3.5-5.1) mmol/L Chloride 107 (98-107) mmol/L Carbon Dioxide 25 (22-30) mmol/L Anion Gap 12.1 (5-15) MEQ/L BUN 29 H (7-17) mg/dL Creatinine 0.97 (0.52-1.04) mg/dL Estimated GFR 60.0 ML/MIN Glucose 87 (74-106) mg/dL Calcium 9.4 (8.4-10.2) mg/dL Total Bilirubin 0.40 (0.2-1.3) mg/dL AST 24 (14-36) U/L ALT 21 (0-35) U/L Alkaline Phosphatase 114 (38-126) U/L Troponin I < 0.012 (0.000-0.034) ng/mL Serum Total Protein 6.5 (6.3-8.2) g/dL Albumin 3.7 (3.5-5.0) g/dL Amylase 119 H (30-110) U/L Lipase 119 (23-300) U/L Urine Color (YELLOW) Urine Appearance (CLEAR) Urine pH (5-6) Ur Specific [place] (1.005-1.025) Urine Protein (Negative) Urine Ketones (NEGATIVE) Urine Blood (0-5) Evans/ul Urine Nitrite (NEGATIVE) Urine Bilirubin (NEGATIVE) Urine Urobilinogen (0-1) mg/dL Ur Leukocyte Esterase (NEGATIVE) Urine WBC (Auto) (0-5) /HPF Urine RBC (Auto) (0-2) /HPF U Hyaline Cast (Auto) (0-2) /LPF U Epithel Cells (Auto) (FEW) /HPF Urine Bacteria (Auto) (NEGATIVE) /HPF Urine Culture Reflexed (NO) Urine Glucose (NEGATIVE) mg/dL 04/24/18 04/24/18 04/24/18 Range/Units 15:18 18:15 21:15 WBC (4.0-10.5) K/mm3 RBC (4.1-5.4) M/mm3 Hgb (12.0-16.0) gm/dl Hct (35-47) % MCV (78-100) fl MCH (26-32) pg MCHC (32-36) g/dl RDW (11.5-14.0) % Plt Count (150-450) K/mm3 MPV (6-9.5) fl Gran % (36.0-66.0) % Eos # (Auto) (0-0.5) Absolute Lymphs (auto) (1.0-4.6) Absolute Monos (auto) (0.0-1.3) Lymphocytes % (24.0-44.0) % Monocytes % (0.0-12.0) % Eosinophils % (0.00-5.0) % Basophils % (0.0-0.4) % Absolute Granulocytes (1.4-6.9) Basophils # (0-0.4) Sodium (137-145) mmol/L Potassium (3.5-5.1) mmol/L Chloride (98-107) mmol/L Carbon Dioxide (22-30) mmol/L Anion Gap (5-15) MEQ/L BUN (7-17) mg/dL Creatinine (0.52-1.04) mg/dL Estimated GFR ML/MIN Glucose (74-106) mg/dL Calcium (8.4-10.2) mg/dL Total Bilirubin (0.2-1.3) mg/dL AST (14-36) U/L ALT (0-35) U/L Alkaline Phosphatase (38-126) U/L Troponin I < 0.012 < 0.012 (0.000-0.034) ng/mL Serum Total Protein (6.3-8.2) g/dL Albumin (3.5-5.0) g/dL Amylase (30-110) U/L Lipase (23-300) U/L Urine Color YELLOW (YELLOW) Urine Appearance SLIGHTLY CLOUDY (CLEAR) Urine pH 6.0 (5-6) Ur Specific [place] 1.006 (1.005-1.025) Urine Protein NEGATIVE (Negative) Urine Ketones NEGATIVE (NEGATIVE) Urine Blood MODERATE (0-5) Evans/ul Urine Nitrite NEGATIVE (NEGATIVE) Urine Bilirubin NEGATIVE (NEGATIVE) Urine Urobilinogen NEGATIVE (0-1) mg/dL Ur Leukocyte Esterase NEGATIVE (NEGATIVE) Urine WBC (Auto) NONE (0-5) /HPF Urine RBC (Auto) NONE (0-2) /HPF U Hyaline Cast (Auto) 0-2 (0-2) /LPF U Epithel Cells (Auto) NONE (FEW) /HPF Urine Bacteria (Auto) NONE (NEGATIVE) /HPF Urine Culture Reflexed NO (NO) Urine Glucose NEGATIVE (NEGATIVE) mg/dL 04/25/18 04/25/18 04/25/18 Range/Units 00:45 04:00 04:00 WBC 4.6 (4.0-10.5) K/mm3 RBC 2.66 L (4.1-5.4) M/mm3 Hgb 8.1 L (12.0-16.0) gm/dl Hct 25.5 L (35-47) % MCV 95.9 (78-100) fl MCH 30.4 (26-32) pg MCHC 31.8 L (32-36) g/dl RDW 13.4 (11.5-14.0) % Plt Count 181 (150-450) K/mm3 MPV 10.8 H (6-9.5) fl Gran % 51.0 (36.0-66.0) % Eos # (Auto) 0.30 (0-0.5) Absolute Lymphs (auto) 1.51 (1.0-4.6) Absolute Monos (auto) 0.40 (0.0-1.3) Lymphocytes % 33.0 (24.0-44.0) % Monocytes % 8.7 (0.0-12.0) % Eosinophils % 6.6 H (0.00-5.0) % Basophils % 0.7 (0.0-0.4) % Absolute Granulocytes 2.34 (1.4-6.9) Basophils # 0.03 (0-0.4) Sodium (137-145) mmol/L Potassium (3.5-5.1) mmol/L Chloride (98-107) mmol/L Carbon Dioxide (22-30) mmol/L Anion Gap (5-15) MEQ/L BUN (7-17) mg/dL Creatinine (0.52-1.04) mg/dL Estimated GFR ML/MIN Glucose (74-106) mg/dL Calcium (8.4-10.2) mg/dL Total Bilirubin (0.2-1.3) mg/dL AST (14-36) U/L ALT (0-35) U/L Alkaline Phosphatase (38-126) U/L Troponin I < 0.012 < 0.012 (0.000-0.034) ng/mL Serum Total Protein (6.3-8.2) g/dL Albumin (3.5-5.0) g/dL Amylase (30-110) U/L Lipase (23-300) U/L Urine Color (YELLOW) Urine Appearance (CLEAR) Urine pH (5-6) Ur Specific [place] (1.005-1.025) Urine Protein (Negative) Urine Ketones (NEGATIVE) Urine Blood (0-5) Evans/ul Urine Nitrite (NEGATIVE) Urine Bilirubin (NEGATIVE) Urine Urobilinogen (0-1) mg/dL Ur Leukocyte Esterase (NEGATIVE) Urine WBC (Auto) (0-5) /HPF Urine RBC (Auto) (0-2) /HPF U Hyaline Cast (Auto) (0-2) /LPF U Epithel Cells (Auto) (FEW) /HPF Urine Bacteria (Auto) (NEGATIVE) /HPF Urine Culture Reflexed (NO) Urine Glucose (NEGATIVE) mg/dL 04/25/18 Range/Units 04:00 WBC (4.0-10.5) K/mm3 RBC (4.1-5.4) M/mm3 Hgb (12.0-16.0) gm/dl Hct (35-47) % MCV (78-100) fl MCH (26-32) pg MCHC (32-36) g/dl RDW (11.5-14.0) % Plt Count (150-450) K/mm3 MPV (6-9.5) fl Gran % (36.0-66.0) % Eos # (Auto) (0-0.5) Absolute Lymphs (auto) (1.0-4.6) Absolute Monos (auto) (0.0-1.3) Lymphocytes % (24.0-44.0) % Monocytes % (0.0-12.0) % Eosinophils % (0.00-5.0) % Basophils % (0.0-0.4) % Absolute Granulocytes (1.4-6.9) Basophils # (0-0.4) Sodium 139 (137-145) mmol/L Potassium 4.9 (3.5-5.1) mmol/L Chloride 111 H (98-107) mmol/L Carbon Dioxide 25 (22-30) mmol/L Anion Gap 7.9 (5-15) MEQ/L BUN 23 H (7-17) mg/dL Creatinine 0.82 (0.52-1.04) mg/dL Estimated GFR > 60.0 ML/MIN Glucose 85 (74-106) mg/dL Calcium 8.9 (8.4-10.2) mg/dL Total Bilirubin 0.30 (0.2-1.3) mg/dL AST 21 (14-36) U/L ALT 18 (0-35) U/L Alkaline Phosphatase 75 (38-126) U/L Troponin I (0.000-0.034) ng/mL Serum Total Protein 5.8 L (6.3-8.2) g/dL Albumin 3.2 L (3.5-5.0) g/dL Amylase (30-110) U/L Lipase (23-300) U/L Urine Color (YELLOW) Urine Appearance (CLEAR) Urine pH (5-6) Ur Specific [place] (1.005-1.025) Urine Protein (Negative) Urine Ketones (NEGATIVE) Urine Blood (0-5) Evans/ul Urine Nitrite (NEGATIVE) Urine Bilirubin (NEGATIVE) Urine Urobilinogen (0-1) mg/dL Ur Leukocyte Esterase (NEGATIVE) Urine WBC (Auto) (0-5) /HPF Urine RBC (Auto) (0-2) /HPF U Hyaline Cast (Auto) (0-2) /LPF U Epithel Cells (Auto) (FEW) /HPF Urine Bacteria (Auto) (NEGATIVE) /HPF Urine Culture Reflexed (NO) Urine Glucose (NEGATIVE) mg/dL Assessment/Plan (1) Abdominal pain Current Visit: Yes Status: Acute Qualifiers: Abdominal location: generalized Qualified Code(s): R10.84 - Generalized abdominal pain Assessment & Plan: resolved, workup negative and patient appears well today. likely viral syndrome with diarrhea/resolved Code(s): R10.9 - UNSPECIFIED ABDOMINAL PAIN (2) Anemia Current Visit: Yes Status: Acute Qualifiers: Anemia type: unspecified type Qualified Code(s): D64.9 - Anemia, unspecified Assessment & Plan: chronic and stable, can f/u as outpatient Code(s): D64.9 - ANEMIA, UNSPECIFIED (3) Hyperkalemia Current Visit: Yes Status: Acute Assessment & Plan: resolved, likely due to mild dehydration, improved with hydration alone Code(s): E87.5 - HYPERKALEMIA (4) Chest pain of uncertain etiology Current Visit: No Status: Acute Assessment & Plan: [place] ruled out, noncardiac Code(s): R07.89 - OTHER CHEST PAIN (5) Compulsive behavior Current Visit: No Status: Acute Code(s): F42 - OBSESSIVE-COMPULSIVE DISORDER * DO NOT USE * Hospital Summary - Vitals & Intake/Output Vital Signs: Vital Signs Temperature 96.3 F 04/25/18 07:45 Pulse Rate 72 04/25/18 07:45 Respiratory Rate 18 04/25/18 07:45 Blood Pressure 124/58 04/25/18 07:45 O2 Sat by Pulse Oximetry 96 04/25/18 08:35 Intake & Output: Intake & Output 04/22/18 04/23/18 04/24/18 04/25/18 11:59 11:59 11:59 11:59 Intake Total 1708 Output Total 900 Balance 808 Weight 62.9 kg - Lab Result Diagrams: 04/25/18 04:00 04/25/18 04:00 Lab Results-Last 24 Hrs: Lab Results-Last 24 Hours 04/24/18 04/24/18 04/24/18 Range/Units 14:50 14:50 14:50 WBC 5.3 (4.0-10.5) K/mm3 RBC 2.76 L (4.1-5.4) M/mm3 Hgb 8.4 L (12.0-16.0) gm/dl Hct 26.6 L (35-47) % MCV 96.4 (78-100) fl MCH 30.4 (26-32) pg MCHC 31.6 L (32-36) g/dl RDW 13.4 (11.5-14.0) % Plt Count 196 (150-450) K/mm3 MPV 10.3 H (6-9.5) fl Gran % 56.6 (36.0-66.0) % Eos # (Auto) 0.21 (0-0.5) Absolute Lymphs (auto) 1.56 (1.0-4.6) Absolute Monos (auto) 0.49 (0.0-1.3) Lymphocytes % 29.5 (24.0-44.0) % Monocytes % 9.3 (0.0-12.0) % Eosinophils % 4.0 (0.00-5.0) % Basophils % 0.6 (0.0-0.4) % Absolute Granulocytes 2.99 (1.4-6.9) Basophils # 0.03 (0-0.4) Sodium 137 (137-145) mmol/L Potassium 5.8 H (3.5-5.1) mmol/L Chloride 107 (98-107) mmol/L Carbon Dioxide 25 (22-30) mmol/L Anion Gap 12.1 (5-15) MEQ/L BUN 29 H (7-17) mg/dL Creatinine 0.97 (0.52-1.04) mg/dL Estimated GFR 60.0 ML/MIN Glucose 87 (74-106) mg/dL Calcium 9.4 (8.4-10.2) mg/dL Total Bilirubin 0.40 (0.2-1.3) mg/dL AST 24 (14-36) U/L ALT 21 (0-35) U/L Alkaline Phosphatase 114 (38-126) U/L Troponin I < 0.012 (0.000-0.034) ng/mL Serum Total Protein 6.5 (6.3-8.2) g/dL Albumin 3.7 (3.5-5.0) g/dL Amylase 119 H (30-110) U/L Lipase 119 (23-300) U/L Urine Color (YELLOW) Urine Appearance (CLEAR) Urine pH (5-6) Ur Specific [place] (1.005-1.025) Urine Protein (Negative) Urine Ketones (NEGATIVE) Urine Blood (0-5) Evans/ul Urine Nitrite (NEGATIVE) Urine Bilirubin (NEGATIVE) Urine Urobilinogen (0-1) mg/dL Ur Leukocyte Esterase (NEGATIVE) Urine WBC (Auto) (0-5) /HPF Urine RBC (Auto) (0-2) /HPF U Hyaline Cast (Auto) (0-2) /LPF U Epithel Cells (Auto) (FEW) /HPF Urine Bacteria (Auto) (NEGATIVE) /HPF Urine Culture Reflexed (NO) Urine Glucose (NEGATIVE) mg/dL 04/24/18 04/24/18 04/24/18 Range/Units 15:18 18:15 21:15 WBC (4.0-10.5) K/mm3 RBC (4.1-5.4) M/mm3 Hgb (12.0-16.0) gm/dl Hct (35-47) % MCV (78-100) fl MCH (26-32) pg MCHC (32-36) g/dl RDW (11.5-14.0) % Plt Count (150-450) K/mm3 MPV (6-9.5) fl Gran % (36.0-66.0) % Eos # (Auto) (0-0.5) Absolute Lymphs (auto) (1.0-4.6) Absolute Monos (auto) (0.0-1.3) Lymphocytes % (24.0-44.0) % Monocytes % (0.0-12.0) % Eosinophils % (0.00-5.0) % Basophils % (0.0-0.4) % Absolute Granulocytes (1.4-6.9) Basophils # (0-0.4) Sodium (137-145) mmol/L Potassium (3.5-5.1) mmol/L Chloride (98-107) mmol/L Carbon Dioxide (22-30) mmol/L Anion Gap (5-15) MEQ/L BUN (7-17) mg/dL Creatinine (0.52-1.04) mg/dL Estimated GFR ML/MIN Glucose (74-106) mg/dL Calcium (8.4-10.2) mg/dL Total Bilirubin (0.2-1.3) mg/dL AST (14-36) U/L ALT (0-35) U/L Alkaline Phosphatase (38-126) U/L Troponin I < 0.012 < 0.012 (0.000-0.034) ng/mL Serum Total Protein (6.3-8.2) g/dL Albumin (3.5-5.0) g/dL Amylase (30-110) U/L Lipase (23-300) U/L Urine Color YELLOW (YELLOW) Urine Appearance SLIGHTLY CLOUDY (CLEAR) Urine pH 6.0 (5-6) Ur Specific [place] 1.006 (1.005-1.025) Urine Protein NEGATIVE (Negative) Urine Ketones NEGATIVE (NEGATIVE) Urine Blood MODERATE (0-5) Evans/ul Urine Nitrite NEGATIVE (NEGATIVE) Urine Bilirubin NEGATIVE (NEGATIVE) Urine Urobilinogen NEGATIVE (0-1) mg/dL Ur Leukocyte Esterase NEGATIVE (NEGATIVE) Urine WBC (Auto) NONE (0-5) /HPF Urine RBC (Auto) NONE (0-2) /HPF U Hyaline Cast (Auto) 0-2 (0-2) /LPF U Epithel Cells (Auto) NONE (FEW) /HPF Urine Bacteria (Auto) NONE (NEGATIVE) /HPF Urine Culture Reflexed NO (NO) Urine Glucose NEGATIVE (NEGATIVE) mg/dL 04/25/18 04/25/18 04/25/18 Range/Units 00:45 04:00 04:00 WBC 4.6 (4.0-10.5) K/mm3 RBC 2.66 L (4.1-5.4) M/mm3 Hgb 8.1 L (12.0-16.0) gm/dl Hct 25.5 L (35-47) % MCV 95.9 (78-100) fl MCH 30.4 (26-32) pg MCHC 31.8 L (32-36) g/dl RDW 13.4 (11.5-14.0) % Plt Count 181 (150-450) K/mm3 MPV 10.8 H (6-9.5) fl Gran % 51.0 (36.0-66.0) % Eos # (Auto) 0.30 (0-0.5) Absolute Lymphs (auto) 1.51 (1.0-4.6) Absolute Monos (auto) 0.40 (0.0-1.3) Lymphocytes % 33.0 (24.0-44.0) % Monocytes % 8.7 (0.0-12.0) % Eosinophils % 6.6 H (0.00-5.0) % Basophils % 0.7 (0.0-0.4) % Absolute Granulocytes 2.34 (1.4-6.9) Basophils # 0.03 (0-0.4) Sodium (137-145) mmol/L Potassium (3.5-5.1) mmol/L Chloride (98-107) mmol/L Carbon Dioxide (22-30) mmol/L Anion Gap (5-15) MEQ/L BUN (7-17) mg/dL Creatinine (0.52-1.04) mg/dL Estimated GFR ML/MIN Glucose (74-106) mg/dL Calcium (8.4-10.2) mg/dL Total Bilirubin (0.2-1.3) mg/dL AST (14-36) U/L ALT (0-35) U/L Alkaline Phosphatase (38-126) U/L Troponin I < 0.012 < 0.012 (0.000-0.034) ng/mL Serum Total Protein (6.3-8.2) g/dL Albumin (3.5-5.0) g/dL Amylase (30-110) U/L Lipase (23-300) U/L Urine Color (YELLOW) Urine Appearance (CLEAR) Urine pH (5-6) Ur Specific [place] (1.005-1.025) Urine Protein (Negative) Urine Ketones (NEGATIVE) Urine Blood (0-5) Evans/ul Urine Nitrite (NEGATIVE) Urine Bilirubin (NEGATIVE) Urine Urobilinogen (0-1) mg/dL Ur Leukocyte Esterase (NEGATIVE) Urine WBC (Auto) (0-5) /HPF Urine RBC (Auto) (0-2) /HPF U Hyaline Cast (Auto) (0-2) /LPF U Epithel Cells (Auto) (FEW) /HPF Urine Bacteria (Auto) (NEGATIVE) /HPF Urine Culture Reflexed (NO) Urine Glucose (NEGATIVE) mg/dL 04/25/18 Range/Units 04:00 WBC (4.0-10.5) K/mm3 RBC (4.1-5.4) M/mm3 Hgb (12.0-16.0) gm/dl Hct (35-47) % MCV (78-100) fl MCH (26-32) pg MCHC (32-36) g/dl RDW (11.5-14.0) % Plt Count (150-450) K/mm3 MPV (6-9.5) fl Gran % (36.0-66.0) % Eos # (Auto) (0-0.5) Absolute Lymphs (auto) (1.0-4.6) Absolute Monos (auto) (0.0-1.3) Lymphocytes % (24.0-44.0) % Monocytes % (0.0-12.0) % Eosinophils % (0.00-5.0) % Basophils % (0.0-0.4) % Absolute Granulocytes (1.4-6.9) Basophils # (0-0.4) Sodium 139 (137-145) mmol/L Potassium 4.9 (3.5-5.1) mmol/L Chloride 111 H (98-107) mmol/L Carbon Dioxide 25 (22-30) mmol/L Anion Gap 7.9 (5-15) MEQ/L BUN 23 H (7-17) mg/dL Creatinine 0.82 (0.52-1.04) mg/dL Estimated GFR > 60.0 ML/MIN Glucose 85 (74-106) mg/dL Calcium 8.9 (8.4-10.2) mg/dL Total Bilirubin 0.30 (0.2-1.3) mg/dL AST 21 (14-36) U/L ALT 18 (0-35) U/L Alkaline Phosphatase 75 (38-126) U/L Troponin I (0.000-0.034) ng/mL Serum Total Protein 5.8 L (6.3-8.2) g/dL Albumin 3.2 L (3.5-5.0) g/dL Amylase (30-110) U/L Lipase (23-300) U/L Urine Color (YELLOW) Urine Appearance (CLEAR) Urine pH (5-6) Ur Specific [place] (1.005-1.025) Urine Protein (Negative) Urine Ketones (NEGATIVE) Urine Blood (0-5) Evans/ul Urine Nitrite (NEGATIVE) Urine Bilirubin (NEGATIVE) Urine Urobilinogen (0-1) mg/dL Ur Leukocyte Esterase (NEGATIVE) Urine WBC (Auto) (0-5) /HPF Urine RBC (Auto) (0-2) /HPF U Hyaline Cast (Auto) (0-2) /LPF U Epithel Cells (Auto) (FEW) /HPF Urine Bacteria (Auto) (NEGATIVE) /HPF Urine Culture Reflexed (NO) Urine Glucose (NEGATIVE) mg/dL - Discharge Disposition: Home, Self-Care Condition: Good Prescriptions: Continue Losartan Potassium 50 mg [Cozaar 50 MG] 50 mg PO DAILY Omeprazole 20 MG [Prilosec 20 mg] 40 mg PO DAILY Docusate Sodium 100 mg [Colace 100 MG] 100 mg PO DAILY Lorazepam 0.5 mg [Ativan 0.5 MG] 1 mg PO TID Multivitamin [Multivitamins] 1 each PO DAILY Atorvastatin Calcium [Lipitor] 10 mg PO DAILY Cranberry Conc/C/Bacill Coag [Cranberry Tablet] 1 each PO DAILY Acetaminophen [Tylenol] 650 mg PO BID Calcium Citrate/Vitamin D3 [Citracal + D Caplet] 1 each PO DAILY Ascorbic Acid 500 mg [Vitamin C 500 MG] 1,000 mg PO DAILY Vitamin B Complex [Stress B] 1 each PO DAILY Calcium Polycarbophil [Fibercon] 1,150 mg BID Cetirizine HCl [Zyrtec] 10 mg PO DAILY Naproxen 500 mg PO BID PRN #14 tablet Paliperidone Palmitate [Invega Sustenna 156 mg] 1 dose IM UD Dextran 70/Hypromellose [Natural Balance Tears Eye Drop] 3 drops TID Follow up with: LENNIE BONNER [Primary Care Provider] - 1 Week
[2018-04-25] MEDS ORDERED: Protonix 40MG Tablet PO SCH (10:00)
[2018-04-25] MEDS ORDERED: NON-FORMULARY ITEM (Multivitamin [Multivitamins] 1 EACH) PO SCH (10:00)
[2018-04-25] MEDS ORDERED: NON-FORMULARY ITEM (Calcium Citrate/Vitamin D3 [Citracal + D Caplet] 1 EACH) PO SCH (10:00)
[2018-04-25] MEDS ORDERED: NON-FORMULARY ITEM (Cetirizine Hcl [Zyrtec] 10 MG) PO SCH (10:00)
[2018-04-25] MEDS ORDERED: Vitamin C 500 MG PO SCH (10:00)
[2018-04-25] MEDS ORDERED: Artificial Tears 15 ML OP SCH (10:00)
[2018-04-25] MEDS ORDERED: NON-FORMULARY ITEM (Omeprazole 20 Mg [Prilosec 20 Mg] 40 MG) PO SCH (10:00)
[2018-04-25] MEDS ORDERED: CLARITIN 10 MG PO SCH (10:00)
[2018-04-25] MEDS ORDERED: Colace 100 MG PO SCH (10:00)
[2018-04-25] MEDS ORDERED: THERAGRAN MULTIVITAMIN PO SCH (10:00)
[2018-04-25] MEDS ORDERED: Calcium 500MG W/Vit D Tablet PO SCH (10:00)
[2018-04-25] MEDS ORDERED: Cozaar 50 MG PO SCH (10:00)
[2018-04-25 11:42] VITALS: BP 149/62; PULSE 69; O2SAT 100
== END 2018-04-25 13:20 | disposition home or self-care (01) ==
LOC: ED 14:00 → UNDOADMOB 17:45 → MED SURG 17:45 → UNDODISOB 04-25 13:20
PROVIDERS: ADMIT Internal Medicine; ATTEND Internal Medicine
DX: R10.9 Unspecified abdominal pain (principal); D64.9 Anemia, unspecified; E87.5 Hyperkalemia; R07.9 Chest pain, unspecified; R46.81 Obsessive-compulsive behavior; Z79.899 Other long term (current) drug therapy; R19.7 Diarrhea, unspecified; I10 Essential (primary) hypertension
CPT/HCPCS: 36415; 80053; 81001; 82150; 83690; 84484; 85025; 93005; 93268; 94762; 99285; G0378; A9270-GY

== ENCOUNTER 2018-09-10 23:54 | Emergency (ER) | payer MEDICARE ==
[2018-09-11] MEDS ORDERED: MORPHINE SULFATE 4 MG INJ IV ONE (00:39)
[2018-09-11] MEDS ORDERED: Zofran 4 MG/2 ML VIAL IV ONE (00:39)
[2018-09-11 00:45] LABS: BASOPHIL % 0.7 % (0.0-0.4); Basophil (Absolute #) 0.03 (0-0.4); Eosinophil % 2.5 % (0.00-5.0); Eosinophil (Absolute #) 0.11 (0-0.5); Granulocyte Absolute (ANC) 1.83 (1.4-6.9); Granulocytes % 42.2 % (36.0-66.0); Hematocrit 27.8 % (35-47); Hemoglobin 8.8 gm/dl (12.0-16.0); Lymphocytes % 34.6 % (24.0-44.0); Mean Cell Volume 95.2 fl (78-100); Mean Corpuscular Hemoglobin 30.1 pg (26-32); Mean Corpuscular Hgb Concent. 31.7 g/dl (32-36); Mean Platelet Volume 10.6 fl (6-9.5); Monocyte (Absolute #) 0.87 (0.0-1.3); Platelet Count 157 K/mm3 (150-450); Red Blood Count 2.92 M/mm3 (4.1-5.4); Red Cell Distribution Width 14.1 % (11.5-14.0); White Blood Count 4.3 K/mm3 (4.0-10.5)
[2018-09-11] MEDS ORDERED: Sodium Chloride 0.9% 1000 ML 1,000 ML IV SCH (00:45)
[2018-09-11 00:52] LABS: INR 0.96 (0.8-3.0); PROTIME 11.2 SECONDS (9.95-12.35)
--- NOTE | 2018-09-11 00:54 | ERPHSYRPT ---
- History of Present Illness Time Seen by Provider: 09/11/18 00:15 Source: patient Patient Subjective Stated Complaint: Rash/Shingles Triage Nursing Assessment: Patient ambulated into ED and transferred self to bed. Patient A+O X 3. Patient complains of rash that was dx as shingles on 09/10 at [facility] ED. Patient was given meds and has taken them. Patient states the pain is 10/10 to right breast and back. Patient lives alone and is unable to care for self. Physician History: PATIENT WITH A HISTORY OF BIPOLAR DISORDER AND HYPERTENSION, TREATED FOR HERPES ZOSTER AT [facility] YESTERDAY MORNING ONSET 1 WEEK AGO. PATIENT COMPLAINS OF SEVERE PAIN DISCOMFORT. DENIES FEVER OR CHILLS. PRESENTS TO EMERGENCY STATING SHE CAN NO LONGER TAKE CARE OF HERSELF,REQUESTING HOSPITALIZATION FOR SENIOR LIVING OR FOSTER CARE PLACEMENT. Timing/Duration: week(s) Quality: itchy, painful Severity: severe Location: other (CHEST AND RIGHT BREAST) Modifying Factors: Improves With: other Associated Symptoms: change in skin texture Allergies/Adverse Reactions: allopurinol sodium [From Aloprim] Allergy (Mild, Verified 09/11/18 00:00) states unknown reaction betamethasone [From Celestone] Allergy (Mild, Verified 09/11/18 00:00) unknown reaction betamethasone sodium phosphate [From Celestone] Allergy (Mild, Verified 00:00) states unknown reaction cefaclor [From Ceclor] Allergy (Mild, Verified 09/11/18 00:00) states unknown reaction lisinopril Allergy (Mild, Verified 09/11/18 00:00) states unknown reaction Penicillins Allergy (Mild, Verified 09/11/18 00:00) Home Medications: Losartan Potassium 50 mg [Cozaar 50 MG] 50 mg PO DAILY 04/23/13 [History] Omeprazole 20 MG [Prilosec 20 mg] 40 mg PO DAILY 04/23/13 [History] Docusate Sodium 100 mg [Colace 100 MG] 100 mg PO DAILY 08/19/14 [History] Lorazepam 0.5 mg [Ativan 0.5 MG] 1 mg PO TID 11/17/15 [History] Acetaminophen [Tylenol] 650 mg PO BID 03/04/17 [History] Ascorbic Acid 500 mg [Vitamin C 500 MG] 1,000 mg PO DAILY 03/04/17 [ History] Atorvastatin Calcium [Lipitor] 10 mg PO DAILY 03/04/17 [History] Calcium Citrate/Vitamin D3 [Citracal + D Caplet] 1 each PO DAILY 03/04/17 [ History] Calcium Polycarbophil [Fibercon] 1,150 mg BID 03/04/17 [History] Cetirizine HCl [Zyrtec] 10 mg PO DAILY 03/04/17 [History] Cranberry Conc/C/Bacill Coag [Cranberry Tablet] 1 each PO DAILY 03/04/17 [ History] Multivitamin [Multivitamins] 1 each PO DAILY 03/04/17 [History] Vitamin B Complex [Stress B] 1 each PO DAILY 03/04/17 [History] Dextran 70/Hypromellose [Natural Balance Tears Eye Drop] 3 drops TID 04/24/18 [ History] Paliperidone Palmitate [Invega Sustenna 156 mg] 1 dose IM UD 04/24/18 [History] Hx Tetanus, Diphtheria Vaccination/Date Given: Yes Hx Influenza Vaccination/Date Given: Yes Hx Pneumococcal Vaccination/Date Given: No Immunizations Up to Date: Yes - Review of Systems Constitutional: No Fever, No Chills Eyes: No Symptoms Ears, Nose, & Throat: No Symptoms Respiratory: No Symptoms, No Cough, No Dyspnea Cardiac: No Chest Pain, No Edema, No Syncope Abdominal/Gastrointestinal: No Symptoms, No Abdominal Pain, No Nausea, No Vomiting, No Diarrhea Genitourinary Symptoms: No Symptoms, No Dysuria Musculoskeletal: No Symptoms, No Back Pain, No Neck Pain Skin: Skin Lesions, No Rash (PAINFUL LESIONS OF THE RIGHT CHEST AND BREAST) Neurological: No Dizziness, No Focal Weakness, No Sensory Changes Psychological: No Symptoms Endocrine: No Symptoms All Other Systems: Reviewed and Negative - Past Medical History Pertinent Past Medical History: Yes Neurological History: No Pertinent History ENT History: Cataracts Cardiac History: Hypertension Respiratory History: No Pertinent History Endocrine Medical History: No Pertinent History Musculoskeletal History: Arthritis GI Medical History: GERD History: No Pertinent History Psycho-Social History: Anxiety, Bipolar, Other Female Reproductive Disorders: No Pertinent History - Past Surgical History Past Surgical History: Yes Neuro Surgical History: No Pertinent History Cardiac: No Pertinent History Respiratory: No Pertinent History Gastrointestinal: No Pertinent History Genitourinary: No Pertinent History Musculoskeletal: No Pertinent History Female Surgical History: Tubal Ligation Other Surgical History: TUBAL AND MOUTH SURGERY, abhinav. cataract surgery. Pt poor historian - Social History Smoking Status: Never smoker Exposure to second hand smoke: No Drug Use: none Patient Lives Alone: No Significant Family History: no pertinent family hx - Female History Hx Now: No - Nursing Vital Signs Nursing Vital Signs: Initial Vital Signs Temperature 98.1 F 09/11/18 00:00 Pulse Rate 66 09/11/18 00:00 Respiratory Rate 18 09/11/18 00:00 Blood Pressure 127/56 09/11/18 00:00 O2 Sat by Pulse Oximetry 95 09/11/18 00:00 Pain Scale Pain Intensity 10 - Physical Exam General Appearance: no apparent distress Eye Exam: PERRL/EOMI Ears, Nose, Throat Exam: normal ENT inspection Neck Exam: normal inspection Respiratory Exam: normal breath sounds Cardiovascular Exam: regular rate/rhythm, normal heart sounds Back Exam: normal range of motion Extremity Exam: normal inspection, normal range of motion Neurologic Exam: alert, oriented x 3, cooperative, 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 FROM MID RIGHT THORACIC SPINE TO RIGHT BREAST) SpO2 Interpretation: normal SpO2: 97 Ordered Tests: Active Orders 24 hr Category Date Time Status BLOOD CULTURE Stat Lab 09/11/18 01:24 Received BMP Stat Lab 09/11/18 00:44 Completed CBC W DIFF Stat Lab 09/11/18 00:44 Completed PROTIME WITH INR Stat Lab 09/11/18 00:44 Completed UA W/RFX UR CULTURE Stat Lab 09/11/18 00:40 Uncollected Medication Summary Generic Name Dose Route Start Last Admin Trade Name Freq PRN Reason Stop Dose Admin Sodium Chloride 1,000 mls @ 100 mls/hr 09/11/18 00:45 09/11/18 01:07 Sodium Chloride 0.9% 1000 Ml IV 10/11/18 00:44 100 mls/hr .Q10H KAYLEN Administration Discontinued Medications Generic Name Dose Route Start Last Admin Trade Name Freq PRN Reason Stop Dose Admin Clindamycin HCl/Dextrose 600 mg in 50 mls @ 100 mls/hr 09/11/18 01:01 01:12 Clindamycin-D5w 600 Mg/50 Ml IV 09/11/18 01:30 100 mls/hr STAT STA 100 mls/hr Administration Clindamycin HCl/Dextrose Confirm 09/11/18 01:04 Clindamycin-D5w 600 Mg/50 Ml Administered 09/11/18 01:05 Dose 600 mg in 50 mls @ ud IV .STK-MED ONE Morphine Sulfate 4 mg 09/11/18 00:39 09/11/18 01:06 Morphine Sulfate 4 Mg Inj IV 09/11/18 00:40 4 mg STAT ONE Administration Morphine Sulfate Confirm 09/11/18 01:01 Morphine Sulfate 4 Mg Inj Administered 09/11/18 01:02 Dose 4 mg .ROUTE .STK-MED ONE Ondansetron HCl 4 mg 09/11/18 00:39 09/11/18 01:05 Zofran 4 Mg/2 Ml Vial IV 09/11/18 00:40 4 mg STAT ONE Administration Ondansetron HCl Confirm 09/11/18 01:01 Zofran 4 Mg/2 Ml Vial Administered 09/11/18 01:02 Dose 4 mg .ROUTE .STK-MED ONE Lab/Rad Data: Laboratory Result Diagrams 09/11/18 00:44 09/11/18 00:44 Laboratory Results 09/11/18 09/11/18 09/11/18 Range/Units 00:44 00:44 00:44 WBC 4.3 (4.0-10.5) K/mm3 RBC 2.92 L (4.1-5.4) M/mm3 Hgb 8.8 L (12.0-16.0) gm/dl Hct 27.8 L (35-47) % MCV 95.2 (78-100) fl MCH 30.1 (26-32) pg MCHC 31.7 L (32-36) g/dl RDW 14.1 H (11.5-14.0) % Plt Count 157 (150-450) K/mm3 MPV 10.6 H (6-9.5) fl Gran % 42.2 (36.0-66.0) % Eos # (Auto) 0.11 (0-0.5) Absolute Lymphs (auto) 1.50 (1.0-4.6) Absolute Monos (auto) 0.87 (0.0-1.3) Lymphocytes % 34.6 (24.0-44.0) % Monocytes % 20.0 H (0.0-12.0) % Eosinophils % 2.5 (0.00-5.0) % Basophils % 0.7 (0.0-0.4) % Absolute Granulocytes 1.83 (1.4-6.9) Basophils # 0.03 (0-0.4) PT 11.2 (9.95-12.35) SECONDS INR 0.96 (0.8-3.0) Sodium 143 (137-145) mmol/L Potassium 4.3 (3.5-5.1) mmol/L Chloride 107 (98-107) mmol/L Carbon Dioxide 26 (22-30) mmol/L Anion Gap 14.1 (5-15) MEQ/L BUN 21 H (7-17) mg/dL Creatinine 0.98 (0.52-1.04) mg/dL Estimated GFR 59.3 ML/MIN Glucose 94 (74-106) mg/dL Calcium 9.4 (8.4-10.2) mg/dL - Progress Progress: pain not gone completely Progress Note: 09/11/18 01:33 IV NORMAL SALINE 100ML/HR, ZOFRAN 4MG, MORHINE 4MG AND CLINDAYMCN 600MG IVPB Counseled pt/family regarding: lab results, diagnosis, need for follow-up - Departure Departure Disposition: Home Clinical Impression: HERPES ZOSTER Condition: Stable Critical Care Time: No Referrals: LENNIE BONNER [Primary Care Provider] - Additional Instructions: CONTINUE ALL CURRENT MEDICATIONS ACYCLOVIR, NAPROSYN AND ANTIBIOTIC CLINDAMYCIN DIRECTED. FOLLOWUP UP YOUR PRIMARY CARE PROVIDER EARLY NEXT WEEK.
[2018-09-11 00:56] LABS: ANION GAP 14.1 MEQ/L (5-15); Calcium 9.4 mg/dL (8.4-10.2); Creatinine 1 0.98 mg/dL (0.52-1.04); Potassium 4.3 mmol/L (3.5-5.1)
[2018-09-11] MEDS ORDERED: MORPHINE SULFATE 4 MG INJ ONE (01:01)
[2018-09-11] MEDS ORDERED: CLINDAMYCIN-D5W 600 MG/50 ML*** 600 MG/50 ML BAG IV STA (01:01)
[2018-09-11] MEDS ORDERED: Zofran 4 MG/2 ML VIAL ONE (01:01)
[2018-09-11] MEDS ORDERED: Sodium Chloride 0.9% 1000 ML 1,000 ML ONE (01:02)
[2018-09-11] MEDS ORDERED: CLINDAMYCIN-D5W 600 MG/50 ML*** 600 MG/50 ML BAG IV ONE (01:04)
[2018-09-11 01:14] VITALS: BP 130/52
[2018-09-11 01:38] VITALS: O2SAT 97
[2018-09-11 02:20] VITALS: PULSE 64
== END 2018-09-11 02:25 | disposition home or self-care (01) ==
LOC: ED 23:54
DX: B02.9 Zoster without complications (principal); I10 Essential (primary) hypertension; Z79.899 Other long term (current) drug therapy; F31.9 Bipolar disorder, unspecified
CPT/HCPCS: 36000; 36415; 80048; 85025; 85610; 87040; 96365; 96374; 96375; 99284; J2270; J2405

== ENCOUNTER 2019-04-15 11:51 | Observation (INO) | payer MEDICARE ==
[2019-04-15] MEDS ORDERED: Sodium Chloride 0.9% 10 ML FLUSH Syringe IJ PRN (12:30)
[2019-04-15] MEDS ORDERED: Colace 100 MG PO PRN (12:30)
[2019-04-15 12:52] LABS: Hematocrit 33.6 % (35-47); Hemoglobin 10.7 gm/dl (12.0-16.0); Mean Cell Volume 95.2 fl (78-100); Mean Corpuscular Hemoglobin 30.3 pg (26-32); Mean Corpuscular Hgb Concent. 31.8 g/dl (32-36); Mean Platelet Volume 10.1 fl (7.5-11.0); Platelet Count 211 K/mm3 (150-450); Red Blood Count 3.53 M/mm3 (4.1-5.4); Red Cell Distribution Width 13.1 % (11.5-14.0); White Blood Count 10.9 K/mm3 (4.0-10.5)
[2019-04-15 13:07] LABS: ALBUMIN 4.2 g/dL (3.5-5.0); ALKALINE PHOSPHATASE 74 U/L (38-126); ANION GAP 9.1 MEQ/L (5-15); BLOOD UREA NITROGEN 17 mg/dL (7-17); CHLORIDE 109 mmol/L (98-107); Calcium 9.6 mg/dL (8.4-10.2); Carbon Dioxide 28 mmol/L (22-30); Creatinine 1 0.79 mg/dL (0.52-1.04); Glucose 98 mg/dL (74-106); Potassium 4.4 mmol/L (3.5-5.1); SGOT/AST 24 U/L (14-36); SGPT/ALT 18 U/L (0-35); SODIUM 142 mmol/L (137-145); Total Protein 7.7 g/dL (6.3-8.2)
--- NOTE | 2019-04-15 13:49 | XRAY ---
Indication: Posterior pain following fall. Comparison: January 14, 2018. AP/lateral left knee obtained. Again no bony, articular, or soft tissue abnormalities.
[2019-04-15] MEDS ORDERED: FIBER PO PRN (16:32)
[2019-04-15] MEDS ORDERED: PALIPERIDONE PALMITATE 234 MG IM SCH (16:45)
[2019-04-15] MEDS ORDERED: MEDICATION INTERVENTION MC SCH (17:00)
[2019-04-15] MEDS ORDERED: MEDICATION INTERVENTION PO SCH ×2 (17:00)
[2019-04-15] MEDS ORDERED: TYLENOL 325 MG ONE (17:07)
[2019-04-15] MEDS ORDERED: Protonix 40MG Tablet ONE (17:07)
[2019-04-15] MEDS ORDERED: Zocor 10MG ONE (17:08)
[2019-04-15] MEDS ORDERED: Vitamin C 500 MG ONE (17:08)
[2019-04-15] MEDS ORDERED: Ativan 1 MG ONE (17:08)
[2019-04-15] MEDS ORDERED: CLARITIN 10 MG ONE (17:09)
[2019-04-15] MEDS ORDERED: Calcium 500MG W/Vit D Tablet ONE (17:09)
[2019-04-15] MEDS ORDERED: THERAGRAN MULTIVITAMIN ONE (17:09)
[2019-04-15] MEDS ORDERED: Colace 100 MG ONE (17:09)
[2019-04-15] MEDS ORDERED: NORVASC 5 MG ONE (17:10)
[2019-04-15] MEDS: Ativan 1 MG PO SCH ×2 (17:11→23:43)
[2019-04-15] MEDS: Protonix 40MG Tablet PO SCH (17:11)
[2019-04-15] MEDS: Vitamin C 500 MG PO SCH (17:11)
[2019-04-15] MEDS: VITA-BEE WITH C PO SCH (17:12)
[2019-04-15] MEDS: Colace 100 MG PO SCH (17:12)
[2019-04-15] MEDS: THERAGRAN MULTIVITAMIN PO SCH (17:12)
[2019-04-15] MEDS: Calcium 500MG W/Vit D Tablet PO SCH (17:13)
[2019-04-15] MEDS: NORVASC 5 MG PO SCH (17:13)
[2019-04-15] MEDS: TYLENOL 325 MG PO SCH (17:13)
[2019-04-15] MEDS: Zocor 10MG PO SCH (17:13)
[2019-04-15] MEDS: CLARITIN 10 MG PO SCH (17:13)
[2019-04-15] MEDS: Sodium Chloride 0.9% 10 ML FLUSH Syringe IJ SCH ×2 (17:17→23:08)
[2019-04-15] MEDS ORDERED: DEXTRAN OP SCH (22:00)
[2019-04-15] MEDS ORDERED: HYPROMELLOSE OP SCH (22:00)
[2019-04-15] MEDS: Artificial Tears 15 ML OP SCH (22:58)
[2019-04-15] MEDS: Naprosyn 500 MG PO PRN (23:43)
[2019-04-15] MEDS: FIBERCON 625 MG PO PRN (23:43)
[2019-04-16] MEDS: Sodium Chloride 0.9% 10 ML FLUSH Syringe IJ SCH ×3 (05:05→21:21)
[2019-04-16] MEDS: TYLENOL 325 MG PO PRN ×2 (06:57→15:24)
[2019-04-16] MEDS: Vitamin C 500 MG PO SCH (09:14)
[2019-04-16] MEDS: NORVASC 5 MG PO SCH (09:14)
[2019-04-16] MEDS: ENOXAPARIN SODIUM SQ SCH (09:14)
[2019-04-16] MEDS: FIBERCON 625 MG PO PRN (09:14)
[2019-04-16] MEDS: Ativan 1 MG PO SCH ×3 (09:14→21:20)
[2019-04-16] MEDS: Colace 100 MG PO SCH (09:14)
[2019-04-16] MEDS: THERAGRAN MULTIVITAMIN PO SCH (09:15)
[2019-04-16] MEDS: Calcium 500MG W/Vit D Tablet PO SCH (09:15)
[2019-04-16] MEDS: CLARITIN 10 MG PO SCH (09:15)
[2019-04-16] MEDS: Artificial Tears 15 ML OP SCH ×3 (09:15→21:20)
[2019-04-16] MEDS: Protonix 40MG Tablet PO SCH (09:16)
[2019-04-16] MEDS: TYLENOL 325 MG PO SCH (09:16)
[2019-04-16] MEDS ORDERED: MULTIVITAMIN PO SCH (10:00)
[2019-04-16] MEDS ORDERED: NON-FORMULARY ITEM (Calcium Citrate/Vitamin D3 [Citracal + D Caplet] 1 EACH) PO SCH (10:00)
[2019-04-16] MEDS ORDERED: FOLIC ACID PO SCH (10:00)
[2019-04-16] MEDS ORDERED: NON-FORMULARY ITEM (Atorvastatin Calcium [Lipitor] 10 MG) PO SCH (10:00)
[2019-04-16] MEDS ORDERED: [UNRECOGNIZED DRUG - OTHER] PO SCH (10:00)
[2019-04-16] MEDS ORDERED: NON-FORMULARY ITEM (Cetirizine Hcl [Zyrtec] 10 MG) PO SCH (10:00)
[2019-04-16] MEDS ORDERED: NON-FORMULARY ITEM (Omeprazole 20 Mg [Prilosec 20 Mg] 40 MG) PO SCH (10:00)
[2019-04-16] MEDS ORDERED: VITAMIN B COMPLEX PO SCH (10:00)
[2019-04-16] MEDS ORDERED: IRON PO SCH (10:00)
[2019-04-16] MEDS: Zocor 10MG PO SCH (10:31)
[2019-04-16] MEDS: VITA-BEE WITH C PO SCH (10:31)
[2019-04-16] MEDS: Naprosyn 500 MG PO PRN ×2 (11:46→22:56)
--- NOTE | 2019-04-16 13:25 | PCM.HP ---
History of Present Illness - Chief Complaint Chief Complaint: LEFT KNEE PAIN, GAIT INSTABILITY,FALL Date: 04/16/19 History of Present Illness: is a 74 year old female whom I saw in the clinic yesterday. Her gait was very unsteady in my exam room yesterday. She had had two recent falls resulting in difficulty with her gait due to left knee pain. She was concerned she would fall again and did not have a family member who could stay with her. She also had no way of obtaining a walker before Thursday (5 days away). Her guardian is her older sister, Esther, but Amanda reports she(Esther) cannot go up the steps to Amanda's house. Amanda reports her Invega shot is due Thursday ( ordered by [facility]). She continues to see the CAR SCRUBBER at [facility] regularly and has home health. Our manager critical care unit is also involved. Today patient also reports right knee pain and tailbone pain and is requesting X-rays of these areas. She sees a sleeve machine tender about her bunion on her left foot and has an upcoming appointment with them. - Review of Systems Constitutional: Weakness, Other (falls) Respiratory: No Symptoms Cardiac: No Symptoms Abdominal/Gastrointestinal: Constipation, Other (She is asking how to take her fiber each day.) Genitourinary Symptoms: No Symptoms Musculoskeletal: Fall, Other (tailbone pain; bilat leg pain) Skin: Other (bruising on left lower leg) Neurological: No Symptoms, Other Psychological: Other (washes her hands over and over) Medications & Allergies Home Medications: Home Medication List Omeprazole 20 MG [Prilosec 20 mg] 40 mg PO DAILY 04/23/13 [History Confirmed 01/23] Docusate Sodium 100 mg [Colace 100 MG] 100 mg PO DAILY 08/19/14 [History Confirmed 04/15/19] Lorazepam 0.5 mg [Ativan 0.5 MG] 1 mg PO TID 11/17/15 [History Confirmed 04/15/19] Acetaminophen [Tylenol] 650 mg PO DAILY 03/04/17 [History Confirmed 04/15/19] Ascorbic Acid 500 mg [Vitamin C 500 MG] 1,000 mg PO DAILY 03/04/17 [ History Confirmed 04/15/19] Atorvastatin Calcium [Lipitor] 10 mg PO DAILY 03/04/17 [History Confirmed ] Calcium Citrate/Vitamin D3 [Citracal + D Caplet] 1 each PO DAILY 03/04/17 [ History Confirmed 04/15/19] Cetirizine HCl [Zyrtec] 10 mg PO DAILY 03/04/17 [History Confirmed 04/15/19] Cranberry Conc/C/Bacill Coag [Cranberry Tablet] 1 each PO DAILY 03/04/17 [ History Confirmed 04/15/19] Vitamin B Complex [Stress B] 1 each PO DAILY 03/04/17 [History Confirmed ] Naproxen 500 mg PO BID PRN #14 tablet 01/08/18 [Rx Confirmed 04/15/19] Dextran 70/Hypromellose [Natural Balance Tears Eye Drop] 3 drops TID 04/24/18 [ History Confirmed 04/15/19] Paliperidone Palmitate [Invega Sustenna 156 mg] 234 mg IM UD 04/24/18 [History Confirmed 04/15/19] Amlodipine Besylate 5 mg [Norvasc 5 mg] 5 mg PO DAILY 04/15/19 [History Confirmed 04/15/19] Fiber [Fiber Diet] 1 each PO UD PRN 04/15/19 [History Confirmed 04/15/19] Mirabegron [Myrbetriq] 50 mg PO DAILY 04/15/19 [History Confirmed 04/15/19] Multivitamin/Iron/Folic Acid [Centrum Adults Tablet] 1 each PO DAILY 04/15/19 [ History Confirmed 04/15/19] Allergies/Adverse Reactions: Allergies Allergy/AdvReac Type Severity Reaction Status Date / Time allopurinol sodium Allergy Mild Verified 09/11/18 00:00 [From Aloprim] betamethasone Allergy Mild Verified 09/11/18 00:00 [From Celestone] betamethasone sodium Allergy Mild Verified 09/11/18 00:00 phosphate [From Celestone] cefaclor [From Ceclor] Allergy Mild Verified 09/11/18 00:00 lisinopril Allergy Mild Verified 09/11/18 00:00 Penicillins Allergy Mild Verified 09/11/18 00:00 - Past Medical History Past Medical History: Yes Neurological History: No Pertinent History ENT History: Cataracts Cardiac History: Hypertension Respiratory History: No Pertinent History Endocrine Medical History: No Pertinent History Musculoskelatal History: Arthritis GI Medical History: GERD History: No Pertinent History Pyscho-Social History: Anxiety, Bipolar, Other Reproductive Disorders: No Pertinent History - Female History Are you now?: No - Past Surgical History Past Surgical History: Yes Neuro Surgical History: No Pertinent History Cardiac History: No Pertinent History Respiratory Surgery: No Pertinent History GI Surgical History: No Pertinent History Genitourinary Surgical Hx: No Pertinent History Musculskeletal Surgical Hx: No Pertinent History Female Surgical History: Tubal Ligation Other Surgical History: TUBAL AND MOUTH SURGERY, abhinav. cataract surgery. Pt poor historian - Social History Smoking Status: Never smoker Exposure to second hand smoke: No Alcohol: None Drug Use: none Significant Family History: no pertinent family hx - Physical Exam Vital Signs: Vital Signs - 24 hr Temp Pulse Resp BP Pulse Ox 04/16/19 11:51 98.5 F 69 18 123/59 97 04/16/19 08:00 98.2 F 72 18 140/60 96 04/16/19 04:00 97.9 F 79 17 137/61 95 04/16/19 00:00 97.9 F 95 H 18 152/67 98 04/15/19 20:00 97.9 F 65 18 141/60 97 04/15/19 16:17 97.3 F 69 16 145/63 98 General Appearance: no apparent distress, other (washes her hands over and over) Neurologic Exam: alert, cooperative Cardiovascular Exam: regular rate/rhythm, normal heart sounds, No murmur, No friction rub, No gallop Gastrointestinal/Abdomen Exam: soft, normal bowel sounds, No tenderness, No distention, No mass Extremity Exam: other (buising over left lower leg, no swelling or erythema of either knee bilat; subjective tenderness; patient ambulating in her room today without her walker.) Skin Exam: other (no c/c/e) Results - Radiology Impressions Radiology Exams & Impressions: Radiology Procedures Category Date Time Status KNEE (1 OR 2 VIEW) Routine Exams 04/15/19 13:38 Completed KNEE (3 VIEWS) Routine Exams 04/16/19 13:10 Taken SACRUM AND COCCYX Routine Exams 04/16/19 13:10 Taken Assessment/Plan (1) Gait instability Current Visit: Yes Status: Acute Assessment & Plan: PT consulted; patient encouraged to use walker that was in room. She needs a safe place to stay to have rehab for her unsteady gait to prevent future falls. Code(s): R26.81 - UNSTEADINESS ON FEET (2) Fall Current Visit: No Status: Acute Code(s): W19.XXXA - UNSPECIFIED FALL, INITIAL ENCOUNTER (3) Knee pain, bilateral Current Visit: Yes Status: Acute Assessment & Plan: Left knee X-ray normal; check right knee X-ray; continue naproxen. Code(s): M25.561 - PAIN IN RIGHT KNEE; M25.562 - PAIN IN LEFT KNEE (4) Coccygeal pain, acute Current Visit: Yes Status: Acute Assessment & Plan: Check X-ray Code(s): M53.3 - SACROCOCCYGEAL DISORDERS, NOT ELSEWHERE CLASSIFIED (5) Anemia Current Visit: No Status: Acute Qualifiers: Anemia type: unspecified type Qualified Code(s): D64.9 - Anemia, unspecified Assessment & Plan: Has been seen by cutter operator brick. Code(s): D64.9 - ANEMIA, UNSPECIFIED (6) Bipolar 1 disorder Current Visit: No Status: Acute Assessment & Plan: Follows at [facility] and due for Invega shot this Thursday she reports. Code(s): F31.9 - BIPOLAR DISORDER, UNSPECIFIED
--- NOTE | 2019-04-16 19:32 | XRAY ---
Indication: Knee pain. No known injury. Comparison: December 13, 2014. 3 views of the right knee demonstrates new mild medial/lateral joint space narrowing/spurring. No other bony, articular, or soft tissue abnormalities.
--- NOTE | 2019-04-16 19:34 | XRAY ---
Indication: Tailbone pain following fall 4 days ago. Comparison: None 3 views of the sacrum/coccyx demonstrate mild lower lumbar degenerative spondylosis and mild aortic calcifications. No other bony, articular, or soft tissue abnormalities. Comment: Preliminary interpretation was made by [facility]. No critical discrepancy.
[2019-04-17] MEDS: Sodium Chloride 0.9% 10 ML FLUSH Syringe IJ SCH ×3 (05:47→21:42)
[2019-04-17] MEDS: CLARITIN 10 MG PO SCH (09:42)
[2019-04-17] MEDS: THERAGRAN MULTIVITAMIN PO SCH (09:42)
[2019-04-17] MEDS: ENOXAPARIN SODIUM SQ SCH (09:42)
[2019-04-17] MEDS: Calcium 500MG W/Vit D Tablet PO SCH (09:43)
[2019-04-17] MEDS: Vitamin C 500 MG PO SCH (09:43)
[2019-04-17] MEDS: TYLENOL 325 MG PO SCH (09:44)
[2019-04-17] MEDS: Colace 100 MG PO SCH (09:44)
[2019-04-17] MEDS: Ativan 1 MG PO SCH ×3 (09:45→21:45)
[2019-04-17] MEDS: NORVASC 5 MG PO SCH (09:45)
[2019-04-17] MEDS: Zocor 10MG PO SCH (09:45)
[2019-04-17] MEDS: Protonix 40MG Tablet PO SCH (09:45)
[2019-04-17] MEDS: Artificial Tears 15 ML OP SCH ×3 (09:46→21:45)
[2019-04-17] MEDS: VITA-BEE WITH C PO SCH (09:46)
[2019-04-17] MEDS: FIBERCON 625 MG PO PRN (10:05)
[2019-04-17] MEDS: Naprosyn 500 MG PO PRN ×2 (11:44→23:45)
--- NOTE | 2019-04-17 15:13 | PCM.NOTE ---
Date and Time: 04/17/19 1509 Subjective Assessment: PT assessed patient. Discharge planning states we are going to or are in contact with [facility]. Patient still desires to go to assisted for care/ rehab. She wants to have surgery on her left 2nd toe which is raised up and causing a lesion where it rubs. She has follow up already scheduled with the milling machine operator gear. She is due for her Invega shot she reports on Thursday ([facility] orders this). - Review of Systems Constitutional: Weakness Respiratory: No Symptoms Cardiac: No Symptoms Abdominal/Gastrointestinal: No Symptoms Musculoskeletal: Joint Pain Skin: No Symptoms Objective Exam General Appearance: no apparent distress Neurologic Exam: alert, cooperative Skin Exam: normal color, warm, dry, No rash Respiratory Exam: normal breath sounds, lungs clear, No crackles/rales, No rhonchi, No wheezing Cardiovascular Exam: regular rate/rhythm, normal heart sounds, No murmur, No friction rub, No gallop Gastrointestinal/Abdomen Exam: soft, normal bowel sounds, No tenderness, No distention Extremity Exam: other (no c/c/e; left 2nd toe with scabbed ulcer) OBJECTIVE DATA Vital Signs: Vital Signs - 24 hr Temp Pulse Resp BP Pulse Ox 04/17/19 08:00 98.4 F 73 18 134/63 97 04/17/19 04:00 96.7 F 60 18 122/61 98 04/17/19 00:00 97.0 F 60 17 138/66 94 L 04/16/19 20:00 97.9 F 78 18 139/66 98 04/16/19 16:00 98.1 F 65 18 130/61 98 Pain Assessment - Last Documented Pain Intensity 0 Pain Scale Used 0-10 Pain Scale Intake and Output: Intake & Output 04/15/19 04/16/19 04/17/19 04/18/19 06:59 06:59 06:59 06:59 Intake Total 620 1580 Balance 620 1580 Weight 60.6 kg Radiology Exams: Radiology Procedures Category Date Time Status KNEE (3 VIEWS) Routine Exams 04/16/19 13:10 Completed SACRUM AND COCCYX Routine Exams 04/16/19 13:10 Completed Assessment/Plan (1) Gait instability Current Visit: Yes Status: Acute Assessment & Plan: PT evaluated patient. She has had recent falls at home and at this time does not seem safe to return to home alone. Code(s): R26.81 - UNSTEADINESS ON FEET (2) Fall Current Visit: No Status: Acute Code(s): W19.XXXA - UNSPECIFIED FALL, INITIAL ENCOUNTER (3) Knee pain, bilateral Current Visit: Yes Status: Acute Assessment & Plan: Seems to be improving; X-rays negative for fracture. Continue NSAID for arthritis. Code(s): M25.561 - PAIN IN RIGHT KNEE; M25.562 - PAIN IN LEFT KNEE (4) Coccygeal pain, acute Current Visit: Yes Status: Acute Assessment & Plan: X-ray was neg for fracture. Code(s): M53.3 - SACROCOCCYGEAL DISORDERS, NOT ELSEWHERE CLASSIFIED (5) Anemia Current Visit: No Status: Acute Qualifiers: Anemia type: unspecified type Qualified Code(s): D64.9 - Anemia, unspecified Assessment & Plan: Stable; sees automotive warranty administrator as outpatient. Code(s): D64.9 - ANEMIA, UNSPECIFIED (6) Bipolar 1 disorder Current Visit: No Status: Acute Assessment & Plan: [facility] follows. We will need to clarify when her Invega shot is due so she doesn't miss this. Code(s): F31.9 - BIPOLAR DISORDER, UNSPECIFIED
[2019-04-17] MEDS: TYLENOL 325 MG PO PRN (21:45)
[2019-04-18] MEDS: Sodium Chloride 0.9% 10 ML FLUSH Syringe IJ SCH ×3 (06:23→21:39)
--- NOTE | 2019-04-18 08:46 | PCM.NOTE ---
Date and Time: 04/18/19 0842 Subjective Assessment: Patient reports she would like to go to [place]. She does not like the shampoo here. She is due for her Invega shot Thursday that [facility] orders. - Review of Systems Constitutional: No Symptoms Respiratory: No Symptoms Cardiac: No Symptoms Abdominal/Gastrointestinal: No Symptoms Genitourinary Symptoms: No Symptoms Musculoskeletal: No Symptoms Objective Exam General Appearance: no apparent distress Neurologic Exam: alert, cooperative, other (poor insight) Skin Exam: normal color Respiratory Exam: normal breath sounds, lungs clear, No crackles/rales, No rhonchi, No wheezing Cardiovascular Exam: regular rate/rhythm, normal heart sounds, No murmur, No friction rub, No gallop Gastrointestinal/Abdomen Exam: soft, normal bowel sounds, No tenderness, No distention, No mass Extremity Exam: other (no c/c/trace edema) OBJECTIVE DATA Vital Signs: Vital Signs - 24 hr Temp Pulse Resp BP Pulse Ox 04/18/19 08:00 98.2 F 92 H 18 143/64 98 04/18/19 04:00 18 04/18/19 00:00 98.8 F 80 19 143/63 99 04/17/19 20:00 97.9 F 78 19 147/63 99 04/17/19 16:00 98.0 F 75 18 129/59 98 04/17/19 12:00 98.0 F 75 18 129/59 98 Pain Assessment - Last Documented Pain Intensity 10 Pain Scale Used 0-10 Pain Scale Intake and Output: Intake & Output 04/16/19 04/17/19 04/18/19 04/19/19 06:59 06:59 06:59 06:59 Intake Total 620 1580 1080 Output Total 500 Balance 620 1580 580 Weight 60.6 kg Radiology Exams: Radiology Procedures Category Date Time Status KNEE (3 VIEWS) Routine Exams 04/16/19 13:10 Completed SACRUM AND COCCYX Routine Exams 04/16/19 13:10 Completed Assessment/Plan (1) Gait instability Current Visit: Yes Status: Acute Assessment & Plan: Planning for patient to go to Rehab for short term stay. Discharge planning is working on placement for this. Code(s): R26.81 - UNSTEADINESS ON FEET (2) Fall Current Visit: No Status: Acute Assessment & Plan: Continue fall precautions. Code(s): W19.XXXA - UNSPECIFIED FALL, INITIAL ENCOUNTER (3) Knee pain, bilateral Current Visit: Yes Status: Acute Assessment & Plan: Continue naproxen. Code(s): M25.561 - PAIN IN RIGHT KNEE; M25.562 - PAIN IN LEFT KNEE (4) Coccygeal pain, acute Current Visit: Yes Status: Acute Code(s): M53.3 - SACROCOCCYGEAL DISORDERS, NOT ELSEWHERE CLASSIFIED (5) Anemia Current Visit: No Status: Acute Qualifiers: Anemia type: unspecified type Qualified Code(s): D64.9 - Anemia, unspecified Assessment & Plan: Stable, sees hematology as outpatient. Code(s): D64.9 - ANEMIA, UNSPECIFIED (6) Bipolar 1 disorder Current Visit: No Status: Acute Assessment & Plan: Follows at [facility] and they write his prescriptions. Code(s): F31.9 - BIPOLAR DISORDER, UNSPECIFIED
[2019-04-18] MEDS: CLARITIN 10 MG PO SCH (09:14)
[2019-04-18] MEDS: Ativan 1 MG PO SCH ×3 (09:15→21:28)
[2019-04-18] MEDS: Colace 100 MG PO SCH (09:16)
[2019-04-18] MEDS: TYLENOL 325 MG PO SCH (09:16)
[2019-04-18] MEDS: Calcium 500MG W/Vit D Tablet PO SCH (09:17)
[2019-04-18] MEDS: NORVASC 5 MG PO SCH (09:18)
[2019-04-18] MEDS: THERAGRAN MULTIVITAMIN PO SCH (09:18)
[2019-04-18] MEDS: Protonix 40MG Tablet PO SCH (09:19)
[2019-04-18] MEDS: Zocor 10MG PO SCH (09:19)
[2019-04-18] MEDS: VITA-BEE WITH C PO SCH (09:20)
[2019-04-18] MEDS: ENOXAPARIN SODIUM SQ SCH (09:23)
[2019-04-18] MEDS: Vitamin C 500 MG PO SCH (10:00)
--- NOTE | 2019-04-18 12:05 | XRAY ---
Indication: shelter placement. Comparison: January 08, 2018. PA/lateral chest again demonstrates normal heart and lungs with incidental calcified granulomas. Bony thorax intact. Impression: Stable nonacute chest.
[2019-04-18] MEDS: Artificial Tears 15 ML OP SCH ×3 (13:04→21:29)
[2019-04-18] MEDS: TYLENOL 325 MG PO PRN (15:05)
[2019-04-18] MEDS: Naprosyn 500 MG PO PRN (18:15)
--- NOTE | 2019-04-19 08:56 | PCM.NOTE ---
Date and Time: 04/19/19 0851 Subjective Assessment: Patient reports urinating more with not being on her pill for urinary incontinence but her friend brought this in and it is ordered now today. She reports that she wants to take her cholesterol pill at night and that she takes a stress tab daily and wants to continue this. She also wants to take her own fiber con 3 tabs in the AM and 2 tabs 6 hours later. She continues to want to have her hammer toe surgery as soon as possible. She has an upcoming appointment with Delia Moeller, bulldozer engineer, later this month. - Review of Systems Constitutional: Other (unstable on feet) Respiratory: No Symptoms Cardiac: No Symptoms Abdominal/Gastrointestinal: No Symptoms Genitourinary Symptoms: Frequency Musculoskeletal: No Symptoms Skin: No Symptoms Objective Exam General Appearance: no apparent distress, other (When ambulating to the bathroom she is walking in a curvy line and yells "I almost fell" as she is closing the bathroom door.) Neurologic Exam: alert, cooperative, normal mood/affect Skin Exam: normal color, warm, dry Respiratory Exam: normal breath sounds, lungs clear, No crackles/rales, No rhonchi, No wheezing Cardiovascular Exam: regular rate/rhythm, normal heart sounds, No murmur, No friction rub, No gallop Gastrointestinal/Abdomen Exam: soft, normal bowel sounds Extremity Exam: other (trace edema, no c/c) OBJECTIVE DATA Vital Signs: Vital Signs - 24 hr Temp Pulse Resp BP Pulse Ox 04/19/19 08:00 98.2 F 77 18 145/63 96 04/19/19 04:00 98 F 79 18 133/61 96 04/19/19 00:00 98.6 F 84 18 119/57 97 04/18/19 20:00 97.8 F 70 18 170/69 98 04/18/19 16:00 98.6 F 58 L 18 127/60 97 04/18/19 12:00 98.2 F 69 18 150/67 98 Pain Assessment - Last Documented Pain Intensity 3 Pain Scale Used 0-10 Pain Scale Intake and Output: Intake & Output 04/17/19 04/18/19 04/19/19 04/20/19 06:59 06:59 06:59 06:59 Intake Total 1580 1080 840 Output Total 500 Balance 1580 580 840 Radiology Exams: Radiology Procedures Category Date Time Status CHEST 2 VIEWS (PA AND LAT) Routine Exams 04/18/19 11:30 Completed Multi-Disciplinary Progress Notes: Multi-Disciplinary Progress Notes 04/18/19 15:09 Case Management Note by Belen Godinez SPOKE WITH EFE AT [facility], FAXED REFERRAL AT THIS TIME, EFE WILL EVAL IN THE MORNING Initialized on 04/18/19 15:09 - END OF NOTE 04/18/19 14:59 Case Management Note by Belen Godinez CALL TO [facility] TO REPORT REFERRAL, TO CALL BACK. Initialized on 04/18/19 14:59 - END OF NOTE 04/18/19 14:52 Case Management Note by Belen Godinez DISCUSSED WITH PT, REPORTS THAT SHE IS AGREEABLE TO GO TO [facility] AT [place]. WILL MAKE REFERRAL. Initialized on 04/18/19 14:52 - END OF NOTE 04/18/19 14:46 Case Management Note by Belen Godinez DECLINED, DISCUSSED WITH PT, REQUESTS REFERRAL TO [facility]. CALLED TO [facility] - REPORTS NO MEDICAID BED AVAILABLE. Initialized on 04/18/19 14:46 - END OF NOTE 04/18/19 11:05 Case Management Note by Belen Godinez INFORMATION FAXED TO [facility] PER REQUEST OF KO. AWAIT NOTIFICATION OF BED AVAILABILITY. Initialized on 04/18/19 11:05 - END OF NOTE 04/18/19 09:34 Respiratory Note by Gita Shahid EKG FAXED TO DR. BONNER. Initialized on 04/18/19 09:34 - END OF NOTE Assessment/Plan (1) Gait instability Current Visit: Yes Status: Acute Assessment & Plan: Discharge planning continues to work on place for her to stay that will be safe for her at this time for short term rehab. Code(s): R26.81 - UNSTEADINESS ON FEET (2) Fall Current Visit: No Status: Acute Assessment & Plan: Continue naproxen for pain from bruises from fall; Continue fall precautions. Code(s): W19.XXXA - UNSPECIFIED FALL, INITIAL ENCOUNTER (3) Knee pain, bilateral Current Visit: Yes Status: Acute Assessment & Plan: Continue naproxen. Code(s): M25.561 - PAIN IN RIGHT KNEE; M25.562 - PAIN IN LEFT KNEE (4) Coccygeal pain, acute Current Visit: Yes Status: Acute Code(s): M53.3 - SACROCOCCYGEAL DISORDERS, NOT ELSEWHERE CLASSIFIED (5) Anemia Current Visit: No Status: Acute Qualifiers: Anemia type: unspecified type Qualified Code(s): D64.9 - Anemia, unspecified Assessment & Plan: Stable and sees special delivery clerk as an outpatient. Code(s): D64.9 - ANEMIA, UNSPECIFIED (6) Bipolar 1 disorder Current Visit: No Status: Acute Assessment & Plan: Follows with [facility]. Due for Invega shot tomorrow at [facility]. Code(s): F31.9 - BIPOLAR DISORDER, UNSPECIFIED
[2019-04-19] MEDS ORDERED: FIBERCON 625 MG PO SCH (09:15)
[2019-04-19] MEDS: Ativan 1 MG PO SCH ×3 (09:20→21:24)
[2019-04-19] MEDS: CLARITIN 10 MG PO SCH (09:21)
[2019-04-19] MEDS: Protonix 40MG Tablet PO SCH (09:21)
[2019-04-19] MEDS: THERAGRAN MULTIVITAMIN PO SCH (09:21)
[2019-04-19] MEDS: TYLENOL 325 MG PO SCH (09:22)
[2019-04-19] MEDS: NORVASC 5 MG PO SCH (09:23)
[2019-04-19] MEDS: Colace 100 MG PO SCH (09:23)
[2019-04-19] MEDS: Vitamin C 500 MG PO SCH (09:24)
[2019-04-19] MEDS: Artificial Tears 15 ML OP SCH ×3 (09:25→21:28)
[2019-04-19] MEDS: ENOXAPARIN SODIUM SQ SCH (09:25)
[2019-04-19] MEDS: PATIENT OWN MEDICATION PO SCH ×4 (09:25→18:56)
[2019-04-19] MEDS: VITA-BEE WITH C PO SCH (09:28)
[2019-04-19] MEDS: Calcium 500MG W/Vit D Tablet PO SCH (09:29)
[2019-04-19] MEDS ORDERED: PATIENT OWN MEDICATION PO SCH (10:00)
[2019-04-19] MEDS ORDERED: PHARMACY DOSING REQUEST MC SCH (10:00)
[2019-04-19] MEDS: TYLENOL 325 MG PO PRN (14:58)
[2019-04-19] MEDS: Sodium Chloride 0.9% 10 ML FLUSH Syringe IJ SCH (15:01)
[2019-04-19] MEDS: Zocor 10MG PO SCH (15:11)
[2019-04-19 16:16] VITALS: O2SAT 98
[2019-04-19] MEDS: FEOSOL 325 MG PO SCH ×2 (17:20→18:57)
[2019-04-19] MEDS: Naprosyn 500 MG PO PRN (18:57)
[2019-04-19] MEDS ORDERED: Zocor 10MG PO SCH (22:00)
[2019-04-20] MEDS: Colace 100 MG PO SCH (09:57)
[2019-04-20] MEDS: NORVASC 5 MG PO SCH (09:57)
[2019-04-20] MEDS: Calcium 500MG W/Vit D Tablet PO SCH (09:57)
[2019-04-20] MEDS: FEOSOL 325 MG PO SCH (09:57)
[2019-04-20] MEDS: THERAGRAN MULTIVITAMIN PO SCH (09:58)
[2019-04-20] MEDS: Ativan 1 MG PO SCH ×2 (09:58→15:52)
[2019-04-20] MEDS: Artificial Tears 15 ML OP SCH ×2 (09:59→15:52)
[2019-04-20] MEDS: CLARITIN 10 MG PO SCH (09:59)
[2019-04-20] MEDS: PATIENT OWN MEDICATION PO SCH ×4 (09:59→16:00)
[2019-04-20] MEDS: ENOXAPARIN SODIUM SQ SCH (10:00)
[2019-04-20] MEDS: Protonix 40MG Tablet PO SCH (10:01)
[2019-04-20] MEDS: Vitamin C 500 MG PO SCH (10:02)
[2019-04-20] MEDS: TYLENOL 325 MG PO SCH (10:07)
[2019-04-20 15:47] VITALS: BP 135/63; PULSE 82
[2019-04-20] MEDS: TYLENOL 325 MG PO PRN (15:59)
== END 2019-04-20 17:15 ==
LOC: MED SURG 12:00
PROVIDERS: ADMIT Internal Medicine; ATTEND Internal Medicine
DX: R26.81 Unsteadiness on feet (principal); M25.562 Pain in left knee; M25.561 Pain in right knee; K59.00 Constipation, unspecified; I10 Essential (primary) hypertension; W19.XXXA Unspecified fall, initial encounter; M53.3 Sacrococcygeal disorders, not elsewhere classified; D64.9 Anemia, unspecified; F31.9 Bipolar disorder, unspecified; Z79.899 Other long term (current) drug therapy
CPT/HCPCS: 36415; 71046; 72220; 73560; 73562; 80053; 85027; 93005; G0378; J1650; A9270-GY

== ENCOUNTER 2019-05-21 18:47 | Inpatient (IN) | payer MEDICARE ==
--- NOTE | 2019-05-21 19:02 | ERPHSYRPT ---
- History of Present Illness Time Seen by Provider: 05/21/19 18:57 Source: patient, old records Exam Limitations: no limitations Physician History: pt has been living on own and has guardian ; chornic left second hammertoe severe with new erythema and pain and sore dorsally last few days - no hx trauma tender; neurovasc intact; Method of Injury: other (chronic hammertoe now with sore ) Occurred: last week Quality: constant, throbbing Severity of Pain-Max: moderate Severity of Pain-Current: moderate Lower Extremities Pain: 2nd toe: left Modifying Factors: Improves With: immobilization, movement Associated Symptoms: other (complains of pain bearing weight - observed to ambulate by nurses and PM ) Allergies/Adverse Reactions: allopurinol sodium [From Aloprim] Allergy (Mild, Verified 05/21/19 19:09) states unknown reaction betamethasone [From Celestone] Allergy (Mild, Verified 05/21/19 19:09) unknown reaction betamethasone sodium phosphate [From Celestone] Allergy (Mild, Verified 19:09) states unknown reaction cefaclor [From Ceclor] Allergy (Mild, Verified 05/21/19 19:09) states unknown reaction lisinopril Allergy (Mild, Verified 05/21/19 19:09) states unknown reaction Penicillins Allergy (Mild, Verified 05/21/19 19:09) Home Medications: Omeprazole 20 MG [Prilosec 20 mg] 40 mg PO DAILY 04/23/13 [History] Docusate Sodium 100 mg [Colace 100 MG] 100 mg PO DAILY 08/19/14 [History] Lorazepam 0.5 mg [Ativan 0.5 MG] 0.5 mg PO TID 11/17/15 [History] Acetaminophen [Tylenol] 650 mg PO DAILY 03/04/17 [History] Ascorbic Acid 500 mg [Vitamin C 500 MG] 1,000 mg PO DAILY 03/04/17 [ History] Atorvastatin Calcium [Lipitor] 10 mg PO DAILY 03/04/17 [History] Calcium Citrate/Vitamin D3 [Citracal + D Caplet] 1 each PO DAILY 03/04/17 [ History] Cetirizine HCl [Zyrtec] 10 mg PO DAILY 03/04/17 [History] Cranberry Conc/C/Bacill Coag [Cranberry Tablet] 1 each PO DAILY 03/04/17 [ History] Vitamin B Complex [Stress B] 1 each PO DAILY 03/04/17 [History] Dextran 70/Hypromellose [Natural Balance Tears Eye Drop] 3 drops TID 04/24/18 [ History] Paliperidone Palmitate [Invega Sustenna 156 mg] 234 mg IM UD 04/24/18 [History] Amlodipine Besylate 5 mg [Norvasc 5 mg] 5 mg PO DAILY 04/15/19 [History] Fiber [Fiber Diet] 1 each PO UD PRN 04/15/19 [History] Mirabegron [Myrbetriq] 50 mg PO DAILY 04/15/19 [History] Multivitamin/Iron/Folic Acid [Centrum Adults Tablet] 1 each PO DAILY 04/15/19 [ History] Hx Tetanus, Diphtheria Vaccination/Date Given: Yes Hx Influenza Vaccination/Date Given: Yes Hx Pneumococcal Vaccination/Date Given: No - Review of Systems Constitutional: No Fever, No Chills Eyes: No Symptoms Ears, Nose, & Throat: No Symptoms Respiratory: No Cough, No Dyspnea Cardiac: No Chest Pain, No Edema, No Syncope Abdominal/Gastrointestinal: No Abdominal Pain, No Nausea, No Vomiting, No Diarrhea Genitourinary Symptoms: No Dysuria Musculoskeletal: No Back Pain, No Neck Pain Skin: Cellulitis, No Rash Neurological: No Dizziness, No Focal Weakness, No Sensory Changes Psychological: No Symptoms Endocrine: No Symptoms Hematologic/Lymphatic: No Symptoms Immunological/Allergic: No Symptoms All Other Systems: Reviewed and Negative - Past Medical History Pertinent Past Medical History: Yes Neurological History: No Pertinent History ENT History: Cataracts Cardiac History: Hypertension Respiratory History: No Pertinent History Endocrine Medical History: No Pertinent History Musculoskeletal History: Arthritis GI Medical History: GERD History: No Pertinent History Psycho-Social History: Anxiety, Bipolar, Other Female Reproductive Disorders: No Pertinent History - Past Surgical History Past Surgical History: Yes Neuro Surgical History: No Pertinent History Cardiac: No Pertinent History Respiratory: No Pertinent History Gastrointestinal: No Pertinent History Genitourinary: No Pertinent History Musculoskeletal: No Pertinent History Female Surgical History: Tubal Ligation Other Surgical History: TUBAL AND MOUTH SURGERY, abhinav. cataract surgery. Pt poor historian - Social History Smoking Status: Never smoker Exposure to second hand smoke: No Drug Use: none Patient Lives Alone: No Significant Family History: no pertinent family hx - Nursing Vital Signs Nursing Vital Signs: Initial Vital Signs Temperature 97.5 F 05/21/19 18:48 Pulse Rate 87 05/21/19 18:48 Blood Pressure 140/60 05/21/19 18:48 O2 Sat by Pulse Oximetry 98 05/21/19 18:48 Pain Scale Pain Intensity 0 - Physical Exam General Appearance: alert Eyes, Ears, Nose, Throat Exam: moist mucous membranes Neck Exam: non-tender, supple Cardiovascular/Respiratory Exam: chest non-tender, normal breath sounds, regular rate/rhythm, no respiratory distress Gastrointestinal/Abdominal Exam: non-tender, guarding Back Exam: normal inspection, No vertebral tenderness Hips Exam: bilateral: non-tender, normal inspection, normal range of motion, no evidence of injury Legs Exam: bilateral leg: non-tender, normal inspection, normal range of motion , no evidence of injury Knees Exam: bilateral knee: non-tender, normal inspection, normal range of motion, no evidence of injury Ankle Exam: bilateral ankle: non-tender, normal inspection, normal range of motion, no evidence of injury Foot Exam: right foot: non-tender, normal inspection, normal range of motion, no evidence of injury, left foot: pain, soft tissue tenderness, swelling DTR - Lower Extremities Exam: knee (R): 2+, knee (L): 2+, ankle (R): 2+, ankle ( L): 2+ Neuro/Tendon Exam: normal sensation, normal motor functions Mental Status Exam: alert, oriented x 3, cooperative Skin Exam: normal color, warm, dry - Course Nursing assessment & vital signs reviewed: Yes - Radiology Exams Left Foot X-ray Interpretation: Reviewed by me, Other (chronic dislocation left second toe , cannot exclude osteomyelitis- STS present) Ordered Tests: Active Orders 24 hr Category Date Time Status IV Insertion STAT Care 05/21/19 19:05 Active FOOT (MINIMUM 3 VIEWS) Stat Exams 05/21/19 20:35 Taken LOWER EXTREMITY WO CONTRAST [CT] Stat Exams 05/21/19 19:16 Taken CBC W DIFF Stat Lab 05/21/19 19:47 Completed CMP Stat Lab 05/21/19 19:47 Completed CULTURE,WOUND Stat Lab 05/21/19 20:56 Received Lactic Acid Stat Lab 05/21/19 19:38 Completed SED RATE [Erythrocyte Sedimentation Rate] Stat Lab 05/21/19 19:47 Completed UA W/RFX UR CULTURE Stat Lab 05/21/19 21:31 Ordered Medication Summary Generic Name Dose Route Start Last Admin Trade Name Ottoniel PRN Reason Stop Dose Admin Sodium Chloride 1,000 mls @ 100 mls/hr 05/21/19 19:15 05/21/19 19:38 Sodium Chloride 0.9% 1000 Ml IV 06/20/19 19:14 100 mls/hr .Q10H KAYLEN Administration Discontinued Medications Generic Name Dose Route Start Last Admin Trade Name Ottoniel PRN Reason Stop Dose Admin Aztreonam 1 gm in 100 mls @ 200 mls/hr 05/21/19 19:09 05/21/19 20:49 Azactam 1 Gm/100 Ml D5w IV 05/21/19 19:38 Infused STAT STA Infusion Ketorolac Tromethamine 30 mg 05/21/19 19:05 05/21/19 19:38 Toradol 30 Mg Injection IV 05/21/19 19:06 30 mg STAT ONE Administration Ketorolac Tromethamine Confirm 05/21/19 19:30 Toradol 30 Mg Injection Administered 05/21/19 19:31 Dose 30 mg .ROUTE .STK-MED ONE Lorazepam 1 mg 05/21/19 19:07 05/21/19 19:39 Ativan 1 Mg PO 05/21/19 19:08 1 mg STAT ONE Administration Lorazepam Confirm 05/21/19 19:30 Ativan 1 Mg Administered 05/21/19 19:31 Dose 1 mg .ROUTE .STK-MED ONE Ondansetron HCl 4 mg 05/21/19 19:05 05/21/19 19:38 Zofran 4 Mg/2 Ml Vial IV 05/21/19 19:06 4 mg STAT ONE Administration Ondansetron HCl Confirm 05/21/19 19:30 Zofran 4 Mg/2 Ml Vial Administered 05/21/19 19:31 Dose 4 mg .ROUTE .STK-MED ONE Lab/Rad Data: Laboratory Result Diagrams 05/21/19 19:47 05/21/19 19:47 Laboratory Results 05/21/19 05/21/19 05/21/19 Range/Units 19:47 19:47 19:47 WBC 6.1 (4.0-10.5) K/mm3 RBC 3.81 L (4.1-5.4) M/mm3 Hgb 11.4 L (12.0-16.0) gm/dl Hct 35.5 (35-47) % MCV 93.2 (78-100) fl MCH 29.9 (26-32) pg MCHC 32.1 (32-36) g/dl RDW 13.3 (11.5-14.0) % Plt Count 268 (150-450) K/mm3 MPV 10.5 (7.5-11.0) fl Gran % 67.6 H (36.0-66.0) % Eos # (Auto) 0.18 (0-0.5) Absolute Lymphs (auto) 1.23 (1.0-4.6) Absolute Monos (auto) 0.50 (0.0-1.3) Lymphocytes % 20.2 L (24.0-44.0) % Monocytes % 8.2 (0.0-12.0) % Eosinophils % 3.0 (0.00-5.0) % Basophils % 1.0 (0.0-0.4) % Absolute Granulocytes 4.12 (1.4-6.9) Basophils # 0.06 (0-0.4) ESR 63 H (0-20) mm/hr Sodium 141 (137-145) mmol/L Potassium 4.8 (3.5-5.1) mmol/L Chloride 107 (98-107) mmol/L Carbon Dioxide 27 (22-30) mmol/L Anion Gap 12.4 (5-15) MEQ/L BUN 18 H (7-17) mg/dL Creatinine 1.11 H (0.52-1.04) mg/dL Estimated GFR 51.2 ML/MIN Glucose 109 H (74-106) mg/dL Lactic Acid (0.4-2.0) Calcium 9.9 (8.4-10.2) mg/dL Total Bilirubin 0.40 (0.2-1.3) mg/dL AST 27 (14-36) U/L ALT 20 (0-35) U/L Alkaline Phosphatase 117 (38-126) U/L Serum Total Protein 8.2 (6.3-8.2) g/dL Albumin 4.4 (3.5-5.0) g/dL 05/21/19 Range/Units 19:38 WBC (4.0-10.5) K/mm3 RBC (4.1-5.4) M/mm3 Hgb (12.0-16.0) gm/dl Hct (35-47) % MCV (78-100) fl MCH (26-32) pg MCHC (32-36) g/dl RDW (11.5-14.0) % Plt Count (150-450) K/mm3 MPV (7.5-11.0) fl Gran % (36.0-66.0) % Eos # (Auto) (0-0.5) Absolute Lymphs (auto) (1.0-4.6) Absolute Monos (auto) (0.0-1.3) Lymphocytes % (24.0-44.0) % Monocytes % (0.0-12.0) % Eosinophils % (0.00-5.0) % Basophils % (0.0-0.4) % Absolute Granulocytes (1.4-6.9) Basophils # (0-0.4) ESR (0-20) mm/hr Sodium (137-145) mmol/L Potassium (3.5-5.1) mmol/L Chloride (98-107) mmol/L Carbon Dioxide (22-30) mmol/L Anion Gap (5-15) MEQ/L BUN (7-17) mg/dL Creatinine (0.52-1.04) mg/dL Estimated GFR ML/MIN Glucose (74-106) mg/dL Lactic Acid 1.0 (0.4-2.0) Calcium (8.4-10.2) mg/dL Total Bilirubin (0.2-1.3) mg/dL AST (14-36) U/L ALT (0-35) U/L Alkaline Phosphatase (38-126) U/L Serum Total Protein (6.3-8.2) g/dL Albumin (3.5-5.0) g/dL - Progress Progress: improved, re-examined Progress Note: 05/21/19 22:[address] Davis with elevated sed rate and concerns for osteo but cannot get good image and all agree best to bring pt in for vanc until oupt can be arranged ; Discussed with : [place] Will see patient in: hospital (observation) Counseled pt/family regarding: lab results, diagnosis, need for follow-up, rad results - Departure Departure Disposition: Observation Clinical Impression: infection left second toe , clinical concern for osteomyelitis Condition: Good Critical Care Time: No Referrals: LENNIE BONNER [Primary Care Provider] -
[2019-05-21] MEDS ORDERED: Zofran 4 MG/2 ML VIAL IV ONE (19:05)
[2019-05-21] MEDS ORDERED: TORAdol 30 mg Injection IV ONE (19:05)
[2019-05-21] MEDS ORDERED: Ativan 1 MG PO ONE (19:07)
[2019-05-21] MEDS ORDERED: Azactam 1 GM/100 ML D5W 1 GM/100 ML IVPB IV STA (19:09)
[2019-05-21] MEDS ORDERED: Ativan 1 MG ONE (19:30)
[2019-05-21] MEDS ORDERED: Zofran 4 MG/2 ML VIAL ONE (19:30)
[2019-05-21] MEDS ORDERED: TORAdol 30 mg Injection ONE (19:30)
[2019-05-21] MEDS: Sodium Chloride 0.9% 1000 ML 1,000 ML IV SCH (19:38)
[2019-05-21 19:49] LABS: Absolute Neutrophil Ct (ANC) 4.12 (1.4-6.9); Basophil (Absolute #) 0.06 (0-0.4); Eosinophil (Absolute #) 0.18 (0-0.5); Hematocrit 35.5 % (35-47); Hemoglobin 11.4 gm/dl (12.0-16.0); Lymphocyte (Absolute #) 1.23 (1.0-4.6); Lymphocytes % 20.2 % (24.0-44.0); Mean Cell Volume 93.2 fl (78-100); Mean Corpuscular Hemoglobin 29.9 pg (26-32); Mean Corpuscular Hgb Concent. 32.1 g/dl (32-36); Mean Platelet Volume 10.5 fl (7.5-11.0); Monocytes % 8.2 % (0.0-12.0); Neutrophil % 67.6 % (36.0-66.0); Platelet Count 268 K/mm3 (150-450); Red Blood Count 3.81 M/mm3 (4.1-5.4); Red Cell Distribution Width 13.3 % (11.5-14.0); White Blood Count 6.1 K/mm3 (4.0-10.5)
[2019-05-21 20:03] LABS: ALBUMIN 4.4 g/dL (3.5-5.0); ANION GAP 12.4 MEQ/L (5-15); BILIRUBIN,TOTAL 0.4 mg/dL (0.2-1.3); Calcium 9.9 mg/dL (8.4-10.2); Creatinine 1 1.11 mg/dL (0.52-1.04); Potassium 4.8 mmol/L (3.5-5.1); Total Protein 8.2 g/dL (6.3-8.2)
[2019-05-21] MEDS ORDERED: Sodium Chloride 0.9% 1000 ML 1,000 ML IV SCH (22:58)
[2019-05-21] MEDS ORDERED: Ativan 2 MG/1 ML VIAL IV PRN (22:58)
[2019-05-21] MEDS ORDERED: Zofran 4 MG/2 ML VIAL IV PRN (22:58)
[2019-05-21] MEDS ORDERED: TORAdol 30 mg Injection IV PRN (22:58)
[2019-05-21] MEDS ORDERED: VANCOCIN 1 GM VIAL*** 1 GM in Sodium Chloride 0.9% 250 ML 250 ML IV SCH (22:58)
[2019-05-21] MEDS ORDERED: Ativan 1 MG PO PRN (22:58)
[2019-05-21] MEDS ORDERED: NovoLIN R SQ PRN (22:58)
[2019-05-21] MEDS ORDERED: DILAUDID 2 MG INJECTION IV PRN (22:58)
[2019-05-21] MEDS ORDERED: Vancomycin 1GM/ Ns 250ML*** 250 ML IV ONE (23:11)
[2019-05-22 02:03] LABS: Appearance CLEAR (CLEAR); Bilirubin NEGATIVE (NEGATIVE); Blood NEGATIVE Ery/ul (0-5); Glucose NEGATIVE (NEGATIVE); Ketones TRACE (NEGATIVE); Leukocyte Esterase NEGATIVE (NEGATIVE); Mucus SLIGHT /HPF (NEGATIVE); Nitrite NEGATIVE (NEGATIVE); Protein,Urine Dip NEGATIVE (Negative); RBC 0-2 /HPF (0-2); Specific Gravity 1.019 (1.005-1.025); Urobilinogen NEGATIVE mg/dL (0-1); WBC 0-2 /HPF (0-5)
[2019-05-22 05:06] LABS: Absolute Neutrophil Ct (ANC) 3.37 (1.4-6.9); BASOPHIL % 0.7 % (0.0-0.4); Basophil (Absolute #) 0.04 (0-0.4); Eosinophil % 5.4 % (0.00-5.0); Eosinophil (Absolute #) 0.31 (0-0.5); Hematocrit 30.4 % (35-47); Hemoglobin 9.6 gm/dl (12.0-16.0); Lymphocyte (Absolute #) 1.24 (1.0-4.6); Lymphocytes % 21.6 % (24.0-44.0); Mean Cell Volume 94.4 fl (78-100); Mean Corpuscular Hemoglobin 29.8 pg (26-32); Mean Corpuscular Hgb Concent. 31.6 g/dl (32-36); Mean Platelet Volume 10.1 fl (7.5-11.0); Monocyte (Absolute #) 0.78 (0.0-1.3); Monocytes % 13.6 % (0.0-12.0); Neutrophil % 58.7 % (36.0-66.0); Platelet Count 229 K/mm3 (150-450); Red Blood Count 3.22 M/mm3 (4.1-5.4); Red Cell Distribution Width 13.1 % (11.5-14.0); White Blood Count 5.7 K/mm3 (4.0-10.5)
[2019-05-22 05:15] LABS: ALBUMIN 3.3 g/dL (3.5-5.0); ANION GAP 9.4 MEQ/L (5-15); BILIRUBIN,TOTAL 0.2 mg/dL (0.2-1.3); Calcium 8.6 mg/dL (8.4-10.2); Creatinine 1 1.13 mg/dL (0.52-1.04); Potassium 4.3 mmol/L (3.5-5.1); Total Protein 6.4 g/dL (6.3-8.2)
--- NOTE | 2019-05-22 08:03 | XRAY ---
Indication: Pain and erythema. Chronic hammertoe. Osteomyelitis. Comparison: May 23, 2017. 3 nonweightbearing views of the left foot now demonstrate 2nd MTP dislocation with soft tissue swelling. Elsewhere stable osteopenia, 2nd hammertoe deformity, 1st MTP bunion deformity, midfoot degenerative changes, and small plantar heel spur. No other bony, articular, or soft tissue abnormalities.
--- NOTE | 2019-05-22 08:06 | XRAY ---
Indication: Pain and erythema. Chronic hammertoe. Multiple contiguous axial images obtained through the left foot. Two-dimensional sagittal and coronal reformatted images obtained. Comparison: None During the CT exam, patient became uncooperative. Repeat CT attempted was also prematurely terminated due to uncooperativeness. Only partial CT foot was performed to include the mid and hindfoot. Osseous structures are slightly demineralized consistent with patient's age. Medial talar dome demonstrates small degenerative subcortical cyst. Mild degenerative changes seen of the 2nd and 3rd tarsometatarsal articulation. Tiny calcaneal navicular and posterior talus accessory ossicles. Small plantar heel spur. No acute fracture, dislocation, suspicious bone lesions, or tarsal coalition. Visualized noncontrasted soft tissues demonstrates mild cutaneous/subcutaneous soft tissue swelling/edema. Impression: 1. Osteopenia, degenerative changes, and soft tissue swelling/edema. 2. Remaining limited CT left foot is negative.
[2019-05-22] MEDS: Sodium Chloride 0.9% 1000 ML 1,000 ML IV SCH ×2 (08:30→18:18)
[2019-05-22] MEDS ORDERED: PALIPERIDONE PALMITATE 234 MG IM SCH (10:30)
[2019-05-22] MEDS ORDERED: MEDICATION INTERVENTION PO SCH ×3 (10:45→11:00)
[2019-05-22] MEDS ORDERED: MEDICATION INTERVENTION MC SCH (11:00)
[2019-05-22] MEDS: Calcium 500MG W/Vit D Tablet PO SCH (11:29)
[2019-05-22] MEDS: THERAGRAN MULTIVITAMIN PO SCH (11:29)
[2019-05-22] MEDS: VITA-BEE WITH C PO SCH (11:29)
[2019-05-22] MEDS: Zocor 10MG PO SCH (11:29)
[2019-05-22] MEDS: NORVASC 5 MG PO SCH (11:29)
[2019-05-22] MEDS: Protonix 40MG Tablet PO SCH (11:29)
[2019-05-22] MEDS: Colace 100 MG PO SCH (11:29)
[2019-05-22] MEDS: CLARITIN 10 MG PO SCH (11:29)
[2019-05-22] MEDS: FEOSOL 325 MG PO SCH (11:30)
[2019-05-22] MEDS: Vitamin C 500 MG PO SCH (11:30)
[2019-05-22] MEDS: Naprosyn 500 MG PO PRN ×2 (11:45→20:40)
[2019-05-22] MEDS: Ativan 0.5 MG PO SCH ×2 (11:50→20:40)
[2019-05-22] MEDS: Artificial Tears 15 ML OP SCH ×2 (13:11→20:52)
--- NOTE | 2019-05-22 16:37 | PCM.HP ---
History of Present Illness - Chief Complaint Chief Complaint: clinical concern for osteomyelitis left second toe Date: 05/22/19 History of Present Illness: is a 74 year old female that was seen and examined this am following ER admission for toe infection. Patient reports that she has had issues with this toe before. She reports she was at one time scheduled for surgery but it was cancelled due to patient not being able to afford the procedure. Patient does not wear diabetic foot wear. She reports that she bought new balance shoes size 8.5 which she thought would be big enough but she has noticed that her toe has been rubbing against the shoe. Patient reports that someone told her about a surgeon named Rowena. at [facility] that is the best in [place] for surgery of this type and she would like a referral to him. Patient reports that she tried to be cooperative while they were attempting to get CT of her foot last night. Patient reports that she has dry eyes and hx of bipolar disorder. Patient denies any fevers. Patient wanted to know if I was baptized and saved and then proceed to try and save me. - Review of Systems Constitutional: No Fever Eyes: Other (Patient reports dry eyes she uses drops for. ) Ears, Nose, & Throat: No Nose Congestion, No Throat Pain Respiratory: No Cough, No Short Of Breath, No Wheezing Cardiac: No Chest Pain, No Edema Abdominal/Gastrointestinal: No Abdominal Pain, No Nausea, No Vomiting, No Diarrhea, No Constipation Genitourinary Symptoms: Incontinence (wears a depends) Musculoskeletal: Other (Foot pain) Skin: Skin Lesions (2nd toe L foot) Neurological: No Dizziness, No Headache Psychological: Anxiety, Other (bipolar disorder), No Alcohol Abuse, No Drug Abuse Medications & Allergies Home Medications: Home Medication List Omeprazole 20 MG [Prilosec 20 mg] 40 mg PO DAILY 04/23/13 [History Confirmed ] Docusate Sodium 100 mg [Colace 100 MG] 100 mg PO DAILY 08/19/14 [History Confirmed 05/22/19] Lorazepam 0.5 mg [Ativan 0.5 MG] 0.5 mg PO TID 11/17/15 [History Confirmed 05/22/19] Acetaminophen [Tylenol] 650 mg PO BID 03/04/17 [History Confirmed 05/22/19] Ascorbic Acid 500 mg [Vitamin C 500 MG] 1,000 mg PO DAILY 03/04/17 [ History Confirmed 05/22/19] Atorvastatin Calcium [Lipitor] 10 mg PO DAILY 03/04/17 [History Confirmed ] Calcium Citrate/Vitamin D3 [Citracal + D Caplet] 1 each PO DAILY 03/04/17 [ History Confirmed 05/22/19] Cetirizine HCl [Zyrtec] 10 mg PO DAILY 03/04/17 [History Confirmed 05/22/19] Cranberry Conc/C/Bacill Coag [Cranberry Tablet] 1 each PO DAILY 03/04/17 [ History Confirmed 05/22/19] Vitamin B Complex [Stress B] 1 each PO DAILY 03/04/17 [History Confirmed ] Naproxen 500 mg PO BID PRN #14 tablet 01/08/18 [Rx Confirmed 05/22/19] Dextran 70/Hypromellose [Natural Balance Tears Eye Drop] 3 drops BID 04/24/18 [ History Confirmed 05/22/19] Paliperidone Palmitate [Invega Sustenna 156 mg] 234 mg IM UD 04/24/18 [History Confirmed 05/22/19] Amlodipine Besylate 5 mg [Norvasc 5 mg] 5 mg PO DAILY 04/15/19 [History Confirmed 05/22/19] Fiber [Fiber Diet] 1 each PO DAILY 04/15/19 [History Confirmed 05/22/19] Mirabegron [Myrbetriq] 50 mg PO DAILY 04/15/19 [History Confirmed 05/22/19] Multivitamin/Iron/Folic Acid [Centrum Adults Tablet] 1 each PO DAILY 04/15/19 [ History Confirmed 05/22/19] Ferrous Sulfate 325 mg [Feosol 325 mg] 325 mg PO DAILY #30 tablet [Rx Confirmed 05/22/19] Allergies/Adverse Reactions: Allergies Allergy/AdvReac Type Severity Reaction Status Date / Time allopurinol sodium Allergy Mild Verified 05/21/19 22:50 [From Aloprim] betamethasone Allergy Mild Verified 05/21/19 22:50 [From Celestone] betamethasone sodium Allergy Mild Verified 05/21/19 22:50 phosphate [From Celestone] cefaclor [From Ceclor] Allergy Mild Verified 05/21/19 22:50 lisinopril Allergy Mild Verified 05/21/19 22:50 Penicillins Allergy Mild Verified 05/21/19 22:50 - Past Medical History Past Medical History: Yes Neurological History: No Pertinent History ENT History: Cataracts Cardiac History: Hypertension Respiratory History: No Pertinent History Endocrine Medical History: No Pertinent History Musculoskelatal History: Arthritis GI Medical History: No Pertinent History History: Other Pyscho-Social History: Anxiety, Bipolar, Other Reproductive Disorders: No Pertinent History Comment: pt states that she takes a urine pill because she urinates alot - Female History Are you now?: No - Past Surgical History Past Surgical History: Yes Neuro Surgical History: No Pertinent History Cardiac History: No Pertinent History Respiratory Surgery: No Pertinent History GI Surgical History: No Pertinent History Genitourinary Surgical Hx: No Pertinent History Musculskeletal Surgical Hx: No Pertinent History Female Surgical History: Tubal Ligation Other Surgical History: TUBAL AND MOUTH SURGERY, abhinav. cataract surgery. Pt poor historian - Social History Smoking Status: Never smoker Exposure to second hand smoke: No Alcohol: None Drug Use: none Significant Family History: no pertinent family hx - Physical Exam Vital Signs: Vital Signs - 24 hr Temp Pulse Resp BP Pulse Ox 05/22/19 14:17 97.9 F 70 16 116/56 95 05/22/19 12:00 98.1 F 70 133/63 95 05/22/19 07:29 95 05/22/19 07:14 98.1 F 70 16 133/63 94 L 05/22/19 04:00 97.8 F 62 18 110/54 94 L 05/21/19 23:00 97.7 F 61 18 157/64 97 05/21/19 22:58 97.7 F 61 18 157/64 98 05/21/19 22:00 60 16 144/70 99 05/21/19 19:59 70 22 132/80 95 05/21/19 18:48 97.5 F 87 140/60 98 General Appearance: no apparent distress Neurologic Exam: alert, oriented x 3, cooperative, depressed mood/affect, other (Patient had pressured speech and perserveration of speech as well.) Eye Exam: other (Amblyopia), No scleral icterus Ears, Nose, Throat Exam: moist mucous membranes Neck Exam: normal inspection Respiratory Exam: normal breath sounds, lungs clear, No respiratory distress, No diminished breath sounds, No crackles/rales, No wheezing Cardiovascular Exam: regular rate/rhythm, normal heart sounds, normal peripheral pulses, gallop, No murmur, No friction rub Gastrointestinal/Abdomen Exam: soft, normal bowel sounds, No tenderness, No distention, No mass, No guarding Pelvic Exam: not done Rectal Exam: not done Extremity Exam: other (2nd toe L foot has hammer toe deformity with non healing ulceration and blood/exudate present. There is a also a callous approx 2 cm in size intact on planter surface of the 2nd metatarsal head.) Skin Exam: normal color, warm, dry, No rash Wound Assessment: Skin/Wound Assessment Wound/Incision Assessment Start: 05/22/19 01: 04 Text: Status: Active Freq: Q6H Protocol: Document 05/22/19 14:00 [facility] (Rec: 05/22/19 15:21 [facility] [id number]) Wound/Incision Assessment Toe Wound Assessment Shift Assessment Wound Type Abrasion Wound Stage Non Pressure Wound Drainage Amount Minimal Drainage Description Serosanguineous Drainage Odor None/Absent General Appearance Open to air Length (cm) (cm) 1 Width (cm) (cm) 0.5 Wound Bed Greatest Portion Red (Granulation) Wound Bed Lesser Portion Red (Granulation) Surrounding Tissue [place] Edematous Primary Dressing Bandaid Comment PT HAS A HAMMER TOE ON THE 2ND TOE ON HER LEFT FOOT THAT HAD A BLISTER THE PT STATES THAT POPPED REDDNESS AND A SORE ON THE TOE PT SOME HEALING WOUNDS ON THE BOTTOM OF HER LEFT FOOT WOUND ASSESSMENT PLACED A BANDAID ON PTS 2ND TOE ON HER LEFT FOOT Wound Photo Photo Taken Yes Date: 05/21/19 Time: 23:30 Comment: PT HAS A HAMMER TOE ON THE 2ND TOE ON HER LEFT FOOT THAT HAD A BLISTER THE PT STATES THAT POPPED REDDNESS AND A SORE ON THE TOE PT SOME HEALING WOUNDS ON THE BOTTOM OF HER LEFT FOOT WOUND ASSESSMENT PLACED A BANDAID ON PTS 2ND TOE ON HER LEFT FOOT Results - Labs Lab/Micro Results: Lab Results-Last 24 Hours 05/21/19 05/21/19 05/21/19 Range/Units 19:38 19:47 19:47 WBC 6.1 (4.0-10.5) K/mm3 RBC 3.81 L (4.1-5.4) M/mm3 Hgb 11.4 L (12.0-16.0) gm/dl Hct 35.5 (35-47) % MCV 93.2 (78-100) fl MCH 29.9 (26-32) pg MCHC 32.1 (32-36) g/dl RDW 13.3 (11.5-14.0) % Plt Count 268 (150-450) K/mm3 MPV 10.5 (7.5-11.0) fl Gran % 67.6 H (36.0-66.0) % Eos # (Auto) 0.18 (0-0.5) Absolute Lymphs (auto) 1.23 (1.0-4.6) Absolute Monos (auto) 0.50 (0.0-1.3) Lymphocytes % 20.2 L (24.0-44.0) % Monocytes % 8.2 (0.0-12.0) % Eosinophils % 3.0 (0.00-5.0) % Basophils % 1.0 (0.0-0.4) % Absolute Granulocytes 4.12 (1.4-6.9) Basophils # 0.06 (0-0.4) ESR (0-20) mm/hr Sodium 141 (137-145) mmol/L Potassium 4.8 (3.5-5.1) mmol/L Chloride 107 (98-107) mmol/L Carbon Dioxide 27 (22-30) mmol/L Anion Gap 12.4 (5-15) MEQ/L BUN 18 H (7-17) mg/dL Creatinine 1.11 H (0.52-1.04) mg/dL Estimated GFR 51.2 ML/MIN Glucose 109 H (74-106) mg/dL Lactic Acid 1.0 (0.4-2.0) Calcium 9.9 (8.4-10.2) mg/dL Total Bilirubin 0.40 (0.2-1.3) mg/dL AST 27 (14-36) U/L ALT 20 (0-35) U/L Alkaline Phosphatase 117 (38-126) U/L Serum Total Protein 8.2 (6.3-8.2) g/dL Albumin 4.4 (3.5-5.0) g/dL Urine Color (YELLOW) Urine Appearance (CLEAR) Urine pH (5-6) Ur Specific [place] (1.005-1.025) Urine Protein (Negative) Urine Ketones (NEGATIVE) Urine Blood (0-5) Evans/ul Urine Nitrite (NEGATIVE) Urine Bilirubin (NEGATIVE) Urine Urobilinogen (0-1) mg/dL Ur Leukocyte Esterase (NEGATIVE) Urine WBC (Auto) (0-5) /HPF Urine RBC (Auto) (0-2) /HPF U Epithel Cells (Auto) (FEW) /HPF Urine Bacteria (Auto) (NEGATIVE) /HPF Urine Mucus (Auto) (NEGATIVE) /HPF Urine Culture Reflexed (NO) Urine Glucose (NEGATIVE) mg/dL 05/21/19 05/21/19 05/22/19 Range/Units 19:47 21:31 05:00 WBC (4.0-10.5) K/mm3 RBC (4.1-5.4) M/mm3 Hgb (12.0-16.0) gm/dl Hct (35-47) % MCV (78-100) fl MCH (26-32) pg MCHC (32-36) g/dl RDW (11.5-14.0) % Plt Count (150-450) K/mm3 MPV (7.5-11.0) fl Gran % (36.0-66.0) % Eos # (Auto) (0-0.5) Absolute Lymphs (auto) (1.0-4.6) Absolute Monos (auto) (0.0-1.3) Lymphocytes % (24.0-44.0) % Monocytes % (0.0-12.0) % Eosinophils % (0.00-5.0) % Basophils % (0.0-0.4) % Absolute Granulocytes (1.4-6.9) Basophils # (0-0.4) ESR 63 H (0-20) mm/hr Sodium (137-145) mmol/L Potassium (3.5-5.1) mmol/L Chloride (98-107) mmol/L Carbon Dioxide (22-30) mmol/L Anion Gap (5-15) MEQ/L BUN (7-17) mg/dL Creatinine (0.52-1.04) mg/dL Estimated GFR ML/MIN Glucose (74-106) mg/dL Lactic Acid 0.6 (0.4-2.0) Calcium (8.4-10.2) mg/dL Total Bilirubin (0.2-1.3) mg/dL AST (14-36) U/L ALT (0-35) U/L Alkaline Phosphatase (38-126) U/L Serum Total Protein (6.3-8.2) g/dL Albumin (3.5-5.0) g/dL Urine Color YELLOW (YELLOW) Urine Appearance CLEAR (CLEAR) Urine pH 7.0 (5-6) Ur Specific [place] 1.019 (1.005-1.025) Urine Protein NEGATIVE (Negative) Urine Ketones TRACE (NEGATIVE) Urine Blood NEGATIVE (0-5) Evans/ul Urine Nitrite NEGATIVE (NEGATIVE) Urine Bilirubin NEGATIVE (NEGATIVE) Urine Urobilinogen NEGATIVE (0-1) mg/dL Ur Leukocyte Esterase NEGATIVE (NEGATIVE) Urine WBC (Auto) 0-2 (0-5) /HPF Urine RBC (Auto) 0-2 (0-2) /HPF U Epithel Cells (Auto) NONE (FEW) /HPF Urine Bacteria (Auto) NONE (NEGATIVE) /HPF Urine Mucus (Auto) SLIGHT (NEGATIVE) /HPF Urine Culture Reflexed NO (NO) Urine Glucose NEGATIVE (NEGATIVE) mg/dL 05/22/19 05/22/19 Range/Units 05:01 05:01 WBC 5.7 (4.0-10.5) K/mm3 RBC 3.22 L (4.1-5.4) M/mm3 Hgb 9.6 L (12.0-16.0) gm/dl Hct 30.4 L (35-47) % MCV 94.4 (78-100) fl MCH 29.8 (26-32) pg MCHC 31.6 L (32-36) g/dl RDW 13.1 (11.5-14.0) % Plt Count 229 (150-450) K/mm3 MPV 10.1 (7.5-11.0) fl Gran % 58.7 (36.0-66.0) % Eos # (Auto) 0.31 (0-0.5) Absolute Lymphs (auto) 1.24 (1.0-4.6) Absolute Monos (auto) 0.78 (0.0-1.3) Lymphocytes % 21.6 L (24.0-44.0) % Monocytes % 13.6 H (0.0-12.0) % Eosinophils % 5.4 H (0.00-5.0) % Basophils % 0.7 (0.0-0.4) % Absolute Granulocytes 3.37 (1.4-6.9) Basophils # 0.04 (0-0.4) ESR (0-20) mm/hr Sodium 141 (137-145) mmol/L Potassium 4.3 (3.5-5.1) mmol/L Chloride 112 H (98-107) mmol/L Carbon Dioxide 25 (22-30) mmol/L Anion Gap 9.4 (5-15) MEQ/L BUN 24 H (7-17) mg/dL Creatinine 1.13 H (0.52-1.04) mg/dL Estimated GFR 50.2 ML/MIN Glucose 123 H (74-106) mg/dL Lactic Acid (0.4-2.0) Calcium 8.6 (8.4-10.2) mg/dL Total Bilirubin 0.20 (0.2-1.3) mg/dL AST 22 (14-36) U/L ALT 16 (0-35) U/L Alkaline Phosphatase 77 (38-126) U/L Serum Total Protein 6.4 (6.3-8.2) g/dL Albumin 3.3 L (3.5-5.0) g/dL Urine Color (YELLOW) Urine Appearance (CLEAR) Urine pH (5-6) Ur Specific [place] (1.005-1.025) Urine Protein (Negative) Urine Ketones (NEGATIVE) Urine Blood (0-5) Evans/ul Urine Nitrite (NEGATIVE) Urine Bilirubin (NEGATIVE) Urine Urobilinogen (0-1) mg/dL Ur Leukocyte Esterase (NEGATIVE) Urine WBC (Auto) (0-5) /HPF Urine RBC (Auto) (0-2) /HPF U Epithel Cells (Auto) (FEW) /HPF Urine Bacteria (Auto) (NEGATIVE) /HPF Urine Mucus (Auto) (NEGATIVE) /HPF Urine Culture Reflexed (NO) Urine Glucose (NEGATIVE) mg/dL - Radiology Impressions Radiology Exams & Impressions: Radiology Procedures Category Date Time Status FOOT (MINIMUM 3 VIEWS) Stat Exams 05/21/19 20:35 Completed LOWER EXTREMITY WO CONTRAST [CT] Stat Exams 05/21/19 19:16 Completed Assessment/Plan (1) Skin ulcer Current Visit: Yes Status: Acute Assessment & Plan: There is suspicion for osteomyelitis on 2nd toe left foot. Attempt was made in ER to get CT imaging and ER report stated patient was not cooperating. Patient would need MRI for definitive diagnosis. Xrays did not show signs of osteomyelitis. Patient is afebrile and no elevated WBC. Cultures were performed in ER and are pending. Patient does have exudates present on the ulcer. Patient was started on IV antibiotics. Patient may need transferred for possible consideration for surgery or continue with antibiotic therapy with plans to follow up with surgeon as outpatient. Code(s): L98.499 - NON-PRESSURE CHRONIC ULCER OF SKIN OF SITES W UNSP SEVERITY (2) Hammer toe of left foot Current Visit: No Status: Acute Assessment & Plan: Patient has had hammer toe for awhile. She was reportedly set up for surgery which did not happen. Patient would likely benefit from amputation as her toe is failing to heal and continues to be irritated by her foot wear. Code(s): M20.42 - OTHER HAMMER TOE(S) (ACQUIRED), LEFT FOOT (3) Bipolar 1 disorder Current Visit: No Status: Acute Assessment & Plan: Patient had pressured speech and flight of ideas. She barely allowed me to get her medical hx. She reports that she takes invenga for her bipolar. Will continue with routine meds Code(s): F31.9 - BIPOLAR DISORDER, UNSPECIFIED (4) Decreased renal function Current Visit: Yes Status: Acute Assessment & Plan: Patient's Cr is elevated and her GFR is reduced. She likely has some underlying ckd. I dont have previous labs for comparison. Will continue to monitor and trend (5) Hypertension Current Visit: Yes Status: Acute Assessment & Plan: Patient is on amlodipine. Will continue to monitor and adjust dose of meds if necessary Code(s): I10 - ESSENTIAL (PRIMARY) HYPERTENSION (6) Anemia Current Visit: No Status: Acute Qualifiers: Anemia type: unspecified type Qualified Code(s): D64.9 - Anemia, unspecified Assessment & Plan: Likely anemia of chronic disease as it is normocytic however patient may require further work up. Patient's skin lesion has some bloody drainage but not enough to quantify and is likely not the cause for her anemia. Hgb level could also be partially dilutional Code(s): D64.9 - ANEMIA, UNSPECIFIED
[2019-05-22] MEDS: TYLENOL 325 MG PO SCH (20:43)
[2019-05-22] MEDS ORDERED: VANCOMYCIN 1 GRAM/200 ML BAG 1 GM/200 ML PIGGYBACK IV SCH (22:00)
[2019-05-22] MEDS ORDERED: HYPROMELLOSE OP SCH (22:00)
[2019-05-22] MEDS ORDERED: DEXTRAN OP SCH (22:00)
[2019-05-23] MEDS: TYLENOL 325 MG PO SCH ×3 (00:46→15:31)
[2019-05-23] MEDS: Ativan 0.5 MG PO SCH ×4 (00:46→21:48)
[2019-05-23] MEDS: Sodium Chloride 0.9% 1000 ML 1,000 ML IV SCH (06:11)
--- NOTE | 2019-05-23 08:58 | PCM.NOTE ---
Date and Time: 05/23/19 0855 Subjective Assessment: Patient reports toe does not hurt - Review of Systems Constitutional: No Symptoms Ears, Nose, & Throat: No Symptoms Respiratory: No Symptoms Cardiac: No Symptoms Abdominal/Gastrointestinal: No Symptoms Genitourinary Symptoms: No Symptoms Musculoskeletal: No Symptoms Skin: Cellulitis, Other (ulcer and deformity of left 2nd toe) Objective Exam General Appearance: no apparent distress Neurologic Exam: alert, cooperative, normal mood/affect Skin Exam: normal color, warm, other (left 2nd toe with open ulcer, minimal erythema, no tenderness around toe or foot. thick callous on bottom of left foot ) Wound Assessment: Skin/Wound Assessment Wound/Incision Assessment Start: 05/22/19 01: 04 Text: Status: Active Freq: Q6H Protocol: Document 05/23/19 02:00 EG (Rec: 05/23/19 06:09 EG [id number]) Wound/Incision Assessment Toe Wound Assessment Shift Assessment Wound Type Abrasion Wound Stage Non Pressure Wound Drainage Amount Minimal Drainage Description Serosanguineous Drainage Odor None/Absent General Appearance Open to air Length (cm) (cm) 1 Width (cm) (cm) 0.5 Wound Bed Greatest Portion Red (Granulation) Wound Bed Lesser Portion Red (Granulation) Surrounding Tissue [place] Edematous Primary Dressing Bandaid Comment PT HAS A HAMMER TOE ON THE 2ND TOE ON HER LEFT FOOT THAT HAD A BLISTER THE PT STATES THAT POPPED REDDNESS AND A SORE ON THE TOE PT SOME HEALING WOUNDS ON THE BOTTOM OF HER LEFT FOOT WOUND ASSESSMENT PLACED A BANDAID ON PTS 2ND TOE ON HER LEFT FOOT-unchanged Wound Photo Photo Taken Yes Date: 05/21/19 Time: 23:30 Comment: PT HAS A HAMMER TOE ON THE 2ND TOE ON HER LEFT FOOT THAT HAD A BLISTER THE PT STATES THAT POPPED REDDNESS AND A SORE ON THE TOE PT SOME HEALING WOUNDS ON THE BOTTOM OF HER LEFT FOOT WOUND ASSESSMENT PLACED A BANDAID ON PTS 2ND TOE ON HER LEFT FOOT Respiratory Exam: normal breath sounds, lungs clear, No crackles/rales, No rhonchi, No wheezing Cardiovascular Exam: regular rate/rhythm, normal heart sounds, No murmur, No friction rub, No gallop Gastrointestinal/Abdomen Exam: soft, normal bowel sounds, No tenderness, No distention, No mass Extremity Exam: other (no c/c/e) OBJECTIVE DATA Vital Signs: Vital Signs - 24 hr Temp Pulse Resp BP Pulse Ox 05/23/19 07:44 98 F 72 20 140/68 97 05/23/19 04:00 98.5 F 74 18 157/66 94 L 05/22/19 23:43 98.1 F 84 18 141/73 97 05/22/19 20:00 98.3 F 86 20 167/65 96 05/22/19 19:43 96 05/22/19 16:45 97.4 F 65 16 143/64 95 05/22/19 14:17 97.9 F 70 16 116/56 95 05/22/19 12:00 98.1 F 70 133/63 95 Pain Assessment - Last Documented Pain Intensity 10 Pain Scale Used 0-10 Pain Scale Intake and Output: Intake & Output 05/21/19 05/22/19 05/23/19 05/24/19 06:59 06:59 06:59 06:59 Intake Total 554 4932 Output Total 2600 450 Balance 554 2332 -450 Weight 59.9 kg 60 kg Radiology Exams: Radiology Procedures Category Date Time Status FOOT (MINIMUM 3 VIEWS) Stat Exams 05/21/19 20:35 Completed LOWER EXTREMITY WO CONTRAST [CT] Stat Exams 05/21/19 19:16 Completed MRI LOW EXT JOINT W/O CONTRAST [MRI] Routine Exams 05/23/19 08:50 Ordered Assessment/Plan (1) Cellulitis of left toe Current Visit: Yes Status: Acute Assessment & Plan: Check MRI today to rule out osteomyelitis. Continue wound care. Will ask PT to see patient. Wound culture in lab. Discharge planning consulted. Continue vancomycin. Code(s): L03.032 - CELLULITIS OF LEFT TOE (2) Skin ulcer Current Visit: Yes Status: Acute Code(s): L98.499 - NON-PRESSURE CHRONIC ULCER OF SKIN OF SITES W UNSP SEVERITY (3) Hypertension Current Visit: Yes Status: Acute Assessment & Plan: Currently well controlled. Code(s): I10 - ESSENTIAL (PRIMARY) HYPERTENSION (4) Bipolar 1 disorder Current Visit: No Status: Acute Assessment & Plan: Will check with [facility] when her INVEGA shot is due. Code(s): F31.9 - BIPOLAR DISORDER, UNSPECIFIED (5) Decreased renal function Current Visit: Yes Status: Acute Assessment & Plan: Patient wants to continue naproxen. Will continue to monitor renal function closely.
[2019-05-23] MEDS: FEOSOL 325 MG PO SCH (09:14)
[2019-05-23] MEDS: Colace 100 MG PO SCH (09:14)
[2019-05-23] MEDS: Protonix 40MG Tablet PO SCH (09:14)
[2019-05-23] MEDS: Vitamin C 500 MG PO SCH (09:14)
[2019-05-23] MEDS: Calcium 500MG W/Vit D Tablet PO SCH (09:14)
[2019-05-23] MEDS: Artificial Tears 15 ML OP SCH ×2 (09:14→21:48)
[2019-05-23] MEDS: CLARITIN 10 MG PO SCH (09:14)
[2019-05-23] MEDS: Zocor 10MG PO SCH (09:14)
[2019-05-23] MEDS: NORVASC 5 MG PO SCH (09:14)
[2019-05-23] MEDS: THERAGRAN MULTIVITAMIN PO SCH (09:14)
[2019-05-23] MEDS: VITA-BEE WITH C PO SCH (09:15)
[2019-05-23] MEDS: Naprosyn 500 MG PO PRN ×2 (09:19→21:48)
[2019-05-23] MEDS ORDERED: NON-FORMULARY ITEM (Atorvastatin Calcium [Lipitor] 10 MG) PO SCH (10:00)
[2019-05-23] MEDS ORDERED: IRON PO SCH (10:00)
[2019-05-23] MEDS ORDERED: NON-FORMULARY ITEM (Omeprazole 20 Mg [Prilosec 20 Mg] 40 MG) PO SCH (10:00)
[2019-05-23] MEDS ORDERED: FIBER PO SCH (10:00)
[2019-05-23] MEDS ORDERED: VITAMIN B COMPLEX PO SCH (10:00)
[2019-05-23] MEDS ORDERED: FOLIC ACID PO SCH (10:00)
[2019-05-23] MEDS ORDERED: [UNRECOGNIZED DRUG - OTHER] PO SCH (10:00)
[2019-05-23] MEDS ORDERED: NON-FORMULARY ITEM (Cetirizine Hcl [Zyrtec] 10 MG) PO SCH (10:00)
[2019-05-23] MEDS ORDERED: MULTIVITAMIN PO SCH (10:00)
[2019-05-23] MEDS ORDERED: NON-FORMULARY ITEM (Calcium Citrate/Vitamin D3 [Citracal + D Caplet] 1 EACH) PO SCH (10:00)
--- NOTE | 2019-05-23 12:23 | XRAY ---
Indication: 2nd toe hammertoe and ulcer. Sagittal, coronal, and axial MRI of the left forefoot performed using T1, T2, and STIR sequences. Comparison: None Visualized forefoot and toes demonstrates subcutaneous soft tissue swelling/edema. No focal solid/cystic soft tissue mass or abnormal fluid collection. Chronic 1st MTP bunion deformity and 2nd hammertoe deformity dating back to May 23, 2017. Head of the 2nd proximal phalanx demonstrates fracture with moderate 80-90 varus angulation. No other acute fracture, dislocation, suspicious bony lesions, or abnormal bone marrow signal. Mild/moderate degenerative changes of the 1st MTP with joint space narrowing, spurring, and tiny subcortical signal/cysts. Visualized soft tissues unremarkable. Impression: 1. Angulated fracture head 2nd proximal phalanx. 2. Chronic 1st MTP bunion deformity, 2nd hammertoe deformity, and 1st MTP degenerative changes.
--- NOTE | 2019-05-23 16:21 | XRAY ---
Indication: Pain following fall one month ago. Comparison: April 16, 2019. 3 views of the sacrum/coccyx unchanged again demonstrating mild lower lumbar degenerative spondylosis and mild aortic calcifications. No new/acute bony, articular, or soft tissue abnormalities.
[2019-05-23] MEDS ORDERED: VANCOCIN 1 GM VIAL*** 0.75 GM in Sodium Chloride 0.9% 250 ML 250 ML IV SCH (22:00)
[2019-05-24 04:51] LABS: Absolute Neutrophil Ct (ANC) 2.37 (1.4-6.9); BASOPHIL % 0.9 % (0.0-0.4); Basophil (Absolute #) 0.05 (0-0.4); Eosinophil % 7.6 % (0.00-5.0); Eosinophil (Absolute #) 0.42 (0-0.5); Hematocrit 28.5 % (35-47); Hemoglobin 9.1 gm/dl (12.0-16.0); Lymphocyte (Absolute #) 2.13 (1.0-4.6); Lymphocytes % 38.3 % (24.0-44.0); Mean Cell Volume 94.7 fl (78-100); Mean Corpuscular Hemoglobin 30.2 pg (26-32); Mean Corpuscular Hgb Concent. 31.9 g/dl (32-36); Mean Platelet Volume 10.1 fl (7.5-11.0); Monocyte (Absolute #) 0.59 (0.0-1.3); Monocytes % 10.6 % (0.0-12.0); Neutrophil % 42.6 % (36.0-66.0); Platelet Count 223 K/mm3 (150-450); Red Blood Count 3.01 M/mm3 (4.1-5.4); Red Cell Distribution Width 12.8 % (11.5-14.0); White Blood Count 5.6 K/mm3 (4.0-10.5)
[2019-05-24 05:09] LABS: ANION GAP 7.9 MEQ/L (5-15); BLOOD UREA NITROGEN 19 mg/dL (7-17); CHLORIDE 111 mmol/L (98-107); Calcium 9.2 mg/dL (8.4-10.2); Carbon Dioxide 25 mmol/L (22-30); Creatinine 1 0.81 mg/dL (0.52-1.04); Glucose 91 mg/dL (74-106); Potassium 4.4 mmol/L (3.5-5.1); SODIUM 140 mmol/L (137-145)
--- NOTE | 2019-05-24 09:00 | PCM.NOTE ---
Date and Time: 05/24/19 0855 Subjective Assessment: She reports good appetite. Naproxen helps with pain. She wants to go to [place]. Plan for CORE FEEDER Ant to see her today for ortho consultation as a courtesy as we do not have ortho or podiatry here at our hospital. - Review of Systems Constitutional: No Symptoms Ears, Nose, & Throat: No Symptoms Respiratory: No Symptoms Cardiac: No Symptoms Abdominal/Gastrointestinal: No Symptoms Genitourinary Symptoms: No Symptoms Musculoskeletal: No Symptoms Skin: Other (sore on toe) Objective Exam General Appearance: no apparent distress Neurologic Exam: alert, cooperative, other (repeats her self) Skin Exam: normal color, warm, other (ulcer on 2nd toe on left foot healing with pink granulation tissue, mild erythema of this toe, mild swelling for forefoot on left; callous on bottom of left foot.) Wound Assessment: Skin/Wound Assessment Wound/Incision Assessment Start: 05/22/19 01: 04 Text: Status: Active Freq: Q6H Protocol: Document 05/24/19 02:00 MARCELA (Rec: 05/24/19 05:07 MARCELA [id number]) Wound/Incision Assessment Toe Wound Assessment Shift Assessment Wound Type Abrasion Wound Stage Non Pressure Wound Dressing Status Dry & Intact Drainage Amount None Drainage Odor None/Absent Wound Bed Greatest Portion Red (Granulation) Wound Bed Lesser Portion Red (Granulation) Surrounding Tissue [place] Edematous Primary Dressing Gauze Pads Comment PHYSICAL THERAPY TO DO DRESSING CHANGE Wound Photo Photo Taken Yes Date: 05/21/19 Time: 23:30 Comment: PT HAS A HAMMER TOE ON THE 2ND TOE ON HER LEFT FOOT THAT HAD A BLISTER THE PT STATES THAT POPPED REDDNESS AND A SORE ON THE TOE PT SOME HEALING WOUNDS ON THE BOTTOM OF HER LEFT FOOT WOUND ASSESSMENT PLACED A BANDAID ON PTS 2ND TOE ON HER LEFT FOOT Respiratory Exam: normal breath sounds, lungs clear, No crackles/rales, No rhonchi, No wheezing Cardiovascular Exam: regular rate/rhythm, normal heart sounds, No murmur, No friction rub, No gallop Gastrointestinal/Abdomen Exam: soft, normal bowel sounds, No tenderness, No distention OBJECTIVE DATA Vital Signs: Vital Signs - 24 hr Temp Pulse Resp BP Pulse Ox 05/24/19 04:00 98.4 F 80 20 150/70 96 05/24/19 00:00 97.8 F 52 L 18 108/51 97 05/23/19 19:55 97.6 F 58 L 20 135/61 100 05/23/19 16:10 97.8 F 74 20 166/70 98 05/23/19 12:22 97.9 F 72 20 160/68 96 Pain Assessment - Last Documented Pain Intensity 8 Pain Scale Used 0-10 Pain Scale Intake and Output: Intake & Output 05/22/19 05/23/19 05/24/19 05/25/19 06:59 06:59 06:59 06:59 Intake Total 554 4932 526 Output Total 2600 1100 Balance 554 2332 -574 Weight 59.9 kg 60 kg Lab Results: Lab Results-Last 24 Hours 05/23/19 05/24/19 05/24/19 Range/Units 05:00 04:15 04:18 WBC 5.6 (4.0-10.5) K/mm3 RBC 3.01 L (4.1-5.4) M/mm3 Hgb 9.1 L (12.0-16.0) gm/dl Hct 28.5 L (35-47) % MCV 94.7 (78-100) fl MCH 30.2 (26-32) pg MCHC 31.9 L (32-36) g/dl RDW 12.8 (11.5-14.0) % Plt Count 223 (150-450) K/mm3 MPV 10.1 (7.5-11.0) fl Gran % 42.6 (36.0-66.0) % Eos # (Auto) 0.42 (0-0.5) Absolute Lymphs (auto) 2.13 (1.0-4.6) Absolute Monos (auto) 0.59 (0.0-1.3) Lymphocytes % 38.3 (24.0-44.0) % Monocytes % 10.6 (0.0-12.0) % Eosinophils % 7.6 H (0.00-5.0) % Basophils % 0.9 (0.0-0.4) % Absolute Granulocytes 2.37 (1.4-6.9) Basophils # 0.05 (0-0.4) Sodium 140 (137-145) mmol/L Potassium 4.4 (3.5-5.1) mmol/L Chloride 111 H (98-107) mmol/L Carbon Dioxide 25 (22-30) mmol/L Anion Gap 7.9 (5-15) MEQ/L BUN 19 H (7-17) mg/dL Creatinine 0.81 (0.52-1.04) mg/dL Estimated GFR > 60.0 ML/MIN Glucose 91 (74-106) mg/dL Hemoglobin A1c 5.58 (4.5-6.0) % Calcium 9.2 (8.4-10.2) mg/dL Radiology Exams: Radiology Procedures Category Date Time Status MRI LOW EXT JOINT W/O CONTRAST [MRI] Routine Exams 05/23/19 08:50 Completed SACRUM AND COCCYX Routine Exams 05/23/19 16:01 Completed Multi-Disciplinary Progress Notes: Multi-Disciplinary Progress Notes 05/23/19 11:40 Case Management Note by Belen Godinez PT HAS MEDICARE ADVANTAGE ANTHEM, AND IS HOPING TO GO TO THE MEDICAL CENTER ON DISCHARGE. THEY WILL BE REQUIRED TO OBTAIN PRECERT PRIOR TO ACCEPTING THE PATIENT. Initialized on 05/23/19 11:40 - END OF NOTE 05/23/19 11:34 Case Management Note by Belen Godinez SPOKE WITH SANDRA SANTILLANRN, ACO, REPORTS THAT IT IS HER OPINION THAT PT NEEDS TO GO TO ASSISTED [facility] OPER[facility]. REPORTS THAT SHE DOES NOT FEEL THAT HER TURNER IN AND [facility] IS ENOUGH SUPPORT. REPORTS THAT SHE HAS TOO MANY HOURS AT HOME THAT SHE IS ALONE, AND WITH HER OCD ISSUES, SHE DOES NOT MAKE SAFE CHOICES. SANDRA REPORTS THAT SHE MAY STAND ON HER FEET ALL DAY AND WASH DISHES. SHE IS NOT ABLE TO CARE FOR HER FOOT WOUND AT HOME. PASRR PAPERWORK INITIATED AT THIS TIME ALONG WITH LEVEL OF CARE. PT WILL TRIGGER A LEVEL II WITH HER HISTORY OF MENTAL ILLNESS. ALL PAPERWORK QUEUED FOR REVIEW AT THIS TIME. Initialized on 05/23/19 11:34 - END OF NOTE 05/23/19 11:27 Case Management Note by Michelle Krishna S/W MALIA (PATIENT'S GUARDIAN)- SHE IS ON BOARD WITH PATIENT GOING TO [place]. SHE WILL BE IN TO GET PATIENT'S PALACIOS THEN WILL GO GET PATIENT'S MEDICATIONS TO BRING IN. SHE IS UNAWARE WHO HER HOME HEALTH CARE IS THRU. EMAIL SENT TO SANDRA IN ACO TO SEE IF SHE KNOWS. WILL CONTINUE TO FOLLOW Initialized on 05/23/19 11:27 - END OF NOTE 05/23/19 10:28 Case Management Note by Michelle Krishna ATTEMPTED TO CALL GUARDIAN MALIA TO HAVE HER BRING IN PATIENT'S HOME MEDS THAT WE NEED- NO ANSWER, LM Initialized on 05/23/19 10:28 - END OF NOTE 05/23/19 10:27 Case Management Note by Michelle Krishna ATTEMPTED TO CALL DR. CORNELIUS'S OFFICE TO FIND OUT WHEN PATIENT'S APPOINTMENT IS- THEY ARE CLOSED TODAY. WILL TRY AGAIN TOMORROW Initialized on 05/23/19 10:27 - END OF NOTE 05/23/19 10:11 Case Management Note by Belen Godinez Addendum entered by Belen Godinez 05/23/19 10:21: CESAR IS NOT PT'S SISTER/GUARDIAN, PT'S GUARDIAN IS MALIA. KATRINA IS TURNER IN MANAGER PSYCHOLOGY FOR DEVANG TODAY. VOICEMAIL MESSAGE LEFT FOR DEVANG TO CALL US TOMORROW WHEN SHE RETURNS TO THE OFFICE. Original Note: CESAR, PT'S SISTER/GUARDIAN, CALLED BACK TO REPORT THAT PT IS DUE FOR INVEGA SHOT ON 05/30/19. Initialized on 05/23/19 10:11 - END OF NOTE Assessment/Plan (1) Cellulitis of left toe Current Visit: Yes Status: Acute Assessment & Plan: Stop vancomycin and restart bactrim as this is what she was on as outpatient even though it is not listed on her home medications. PT following. Code(s): L03.032 - CELLULITIS OF LEFT TOE (2) Skin ulcer Current Visit: Yes Status: Acute Code(s): L98.499 - NON-PRESSURE CHRONIC ULCER OF SKIN OF SITES W UNSP SEVERITY (3) Hypertension Current Visit: Yes Status: Acute Assessment & Plan: Continue current medication. Code(s): I10 - ESSENTIAL (PRIMARY) HYPERTENSION (4) Bipolar 1 disorder Current Visit: No Status: Acute Assessment & Plan: Continue current medication. Code(s): F31.9 - BIPOLAR DISORDER, UNSPECIFIED (5) Decreased renal function Current Visit: Yes Status: Resolved Assessment & Plan: Improved today; stop IV fluids. (6) Fracture of phalanx of lesser toe of left foot Current Visit: Yes Status: Acute Assessment & Plan: To see JAMES Cain as courtsey today. May also go to see Dr. Cornelius as outpatient after discharge. Code(s): S92.502A - DISPLACED UNSP FRACTURE OF LEFT LESSER TOE(S), INIT
[2019-05-24] MEDS: Calcium 500MG W/Vit D Tablet PO SCH (09:23)
[2019-05-24] MEDS: Zocor 10MG PO SCH (09:23)
[2019-05-24] MEDS: THERAGRAN MULTIVITAMIN PO SCH (09:23)
[2019-05-24] MEDS: NORVASC 5 MG PO SCH (09:23)
[2019-05-24] MEDS: CLARITIN 10 MG PO SCH (09:23)
[2019-05-24] MEDS: Ativan 0.5 MG PO SCH ×3 (09:23→21:52)
[2019-05-24] MEDS: Vitamin C 500 MG PO SCH (09:23)
[2019-05-24] MEDS: Protonix 40MG Tablet PO SCH (09:24)
[2019-05-24] MEDS: BACTRIM DS TABLET PO SCH ×2 (09:24→21:52)
[2019-05-24] MEDS: FEOSOL 325 MG PO SCH (09:24)
[2019-05-24] MEDS: VITA-BEE WITH C PO SCH (09:24)
[2019-05-24] MEDS: TYLENOL 325 MG PO SCH ×2 (09:24→21:52)
[2019-05-24] MEDS: Colace 100 MG PO SCH (09:24)
[2019-05-24] MEDS: Artificial Tears 15 ML OP SCH ×2 (09:30→21:52)
[2019-05-24] MEDS: FIBERCON 625 MG PO SCH (15:31)
[2019-05-24] MEDS: PATIENT OWN MEDICATION PO SCH ×2 (15:31→15:32)
[2019-05-25 05:04] LABS: Absolute Neutrophil Ct (ANC) 2.95 (1.4-6.9); BASOPHIL % 0.5 % (0.0-0.4); Basophil (Absolute #) 0.03 (0-0.4); Eosinophil (Absolute #) 0.36 (0-0.5); Hematocrit 30.9 % (35-47); Hemoglobin 9.7 gm/dl (12.0-16.0); Lymphocyte (Absolute #) 1.97 (1.0-4.6); Lymphocytes % 32.6 % (24.0-44.0); Mean Cell Volume 93.1 fl (78-100); Mean Corpuscular Hemoglobin 29.2 pg (26-32); Mean Corpuscular Hgb Concent. 31.4 g/dl (32-36); Mean Platelet Volume 10.1 fl (7.5-11.0); Monocyte (Absolute #) 0.73 (0.0-1.3); Monocytes % 12.1 % (0.0-12.0); Neutrophil % 48.8 % (36.0-66.0); Platelet Count 247 K/mm3 (150-450); Red Blood Count 3.32 M/mm3 (4.1-5.4); Red Cell Distribution Width 12.8 % (11.5-14.0)
[2019-05-25 05:20] LABS: ANION GAP 10.2 MEQ/L (5-15); BLOOD UREA NITROGEN 22 mg/dL (7-17); CHLORIDE 108 mmol/L (98-107); Calcium 9.4 mg/dL (8.4-10.2); Carbon Dioxide 26 mmol/L (22-30); Creatinine 1 0.82 mg/dL (0.52-1.04); Glucose 92 mg/dL (74-106); Potassium 4.3 mmol/L (3.5-5.1); SODIUM 140 mmol/L (137-145)
--- NOTE | 2019-05-25 08:51 | PCM.NOTE ---
Date and Time: 05/25/19 0848 Subjective Assessment: patient denies any specific problems or concerns this morning, states she fell last night but had no injury. she is eating her breakfast, denies any pain at this time Objective Exam General Appearance: no apparent distress, alert Neurologic Exam: alert, oriented x 3, cooperative Skin Exam: normal color, warm, dry Wound Assessment: Skin/Wound Assessment Wound/Incision Assessment Start: 05/22/19 01: 04 Text: Status: Active Freq: Q6H Protocol: Document 05/25/19 02:00 MG (Rec: 05/25/19 03:49 MG [id number]) Wound/Incision Assessment Toe Wound Assessment Shift Assessment Wound Type Abrasion Wound Stage Non Pressure Wound Dressing Status Dry & Intact Drainage Amount None Drainage Odor None/Absent Wound Bed Greatest Portion Red (Granulation) Wound Bed Lesser Portion Red (Granulation) Surrounding Tissue [place] Edematous Primary Dressing Bandaid Comment PHYSICAL THERAPY TO DO DRESSING CHANGE, Dressing CDI, no change noted Respiratory Exam: normal breath sounds, lungs clear, No respiratory distress Cardiovascular Exam: regular rate/rhythm, normal heart sounds Gastrointestinal/Abdomen Exam: soft, No tenderness, No mass Extremity Exam: other (left 2nd toe deviated medially over the 1st toe, superficial ulceration present on dorsal aspect, no surrounding erythema or warmth, no fluctuance, no significant drainage) OBJECTIVE DATA Vital Signs: Vital Signs - 24 hr Temp Pulse Resp BP Pulse Ox 05/25/19 08:00 98.6 F 80 17 138/63 95 05/25/19 04:00 98.1 F 88 18 138/67 96 05/24/19 23:36 98.2 F 73 18 122/58 96 05/24/19 19:47 98 F 68 20 148/67 96 05/24/19 15:52 98.3 F 75 18 161/69 97 05/24/19 12:00 97.5 F 73 18 137/65 97 Pain Assessment - Last Documented Pain Intensity 0 Pain Scale Used 0-10 Pain Scale Intake and Output: Intake & Output 05/22/19 05/23/19 05/24/19 05/25/19 11:59 11:59 11:59 11:59 Intake Total 554 4932 886 860 Output Total 200 3050 450 Balance 354 1882 436 860 Weight 59.9 kg 60 kg Lab Results: Lab Results-Last 24 Hours 05/25/19 05/25/19 Range/Units 04:32 04:32 WBC 6.0 (4.0-10.5) K/mm3 RBC 3.32 L (4.1-5.4) M/mm3 Hgb 9.7 L (12.0-16.0) gm/dl Hct 30.9 L (35-47) % MCV 93.1 (78-100) fl MCH 29.2 (26-32) pg MCHC 31.4 L (32-36) g/dl RDW 12.8 (11.5-14.0) % Plt Count 247 (150-450) K/mm3 MPV 10.1 (7.5-11.0) fl Gran % 48.8 (36.0-66.0) % Eos # (Auto) 0.36 (0-0.5) Absolute Lymphs (auto) 1.97 (1.0-4.6) Absolute Monos (auto) 0.73 (0.0-1.3) Lymphocytes % 32.6 (24.0-44.0) % Monocytes % 12.1 H (0.0-12.0) % Eosinophils % 6.0 H (0.00-5.0) % Basophils % 0.5 (0.0-0.4) % Absolute Granulocytes 2.95 (1.4-6.9) Basophils # 0.03 (0-0.4) Sodium 140 (137-145) mmol/L Potassium 4.3 (3.5-5.1) mmol/L Chloride 108 H (98-107) mmol/L Carbon Dioxide 26 (22-30) mmol/L Anion Gap 10.2 (5-15) MEQ/L BUN 22 H (7-17) mg/dL Creatinine 0.82 (0.52-1.04) mg/dL Estimated GFR > 60.0 ML/MIN Glucose 92 (74-106) mg/dL Calcium 9.4 (8.4-10.2) mg/dL Radiology Exams: Radiology Procedures Category Date Time Status MRI LOW EXT JOINT W/O CONTRAST [MRI] Routine Exams 05/23/19 08:50 Completed SACRUM AND COCCYX Routine Exams 05/23/19 16:01 Completed Multi-Disciplinary Progress Notes: Multi-Disciplinary Progress Notes 05/24/19 17:14 Physical Therapy Note by Jelena Unger PT. REPORTS SOME INCREASE IN L 2ND TOE PN TODAY. LESS EDEMA AND ERYTHEMA NOTED. NO DRAINAGE FROM WOUND AT IP JOINT. ABLE TO DEBRIDE DRY TISSUE/ESCHAR FROM PERIWOUND W/ SCISSORS AND FORCEPS. NO ODOR. APPLIED BARRIER OINTMENT TO WOUND TO PROMOTE ESCHAR SLOUGHING AND TISSUE HYDRATION. WILL CONT. PT FOR W/C PRN DURING STAY. JELENA UNGER, PT Initialized on 05/24/19 17:14 - END OF NOTE 05/24/19 09:40 Case Management Note by Belen Godinez LEVEL I ASSESSMENT COMPLETE, REFER FOR LEVEL II ONSITE - LEVEL OF CARE ON HOLD FOR LEVEL II. PASRR DETERMINATION. LEVEL II HAS BEEN ASSIGNED ACCORDING TO ASSESSMENTPRO WEBSITE, BUT HAVE NOT BEEN CONTACTED BY MINING ENGINEER YET. Initialized on 05/24/19 09:40 - END OF NOTE 05/24/19 09:20 Case Management Note by Michelle Krishna S/W COMMERCIAL ACCOUNTANT DEVANG- SHE WAS UPDATED ON CURRENT PLAN FOR PATIENT TO GO TO [place] AT TIME OF DC AND WE ARE WAITING ON LEVEL II EVAL AT THIS TIME. SHE VERIFIED PATIENT GETS HER INVEGA INJECTION AT THE [facility] [place] AND HER APPOINTMENT IS 05/30/19@1130. SHE ALSO STATED PATIENT HAS AN APPOINTMENT WITH DR. CORNELIUS 06/02/19@3:30. SHE WOULD LIKE US TO KEEP HER UPDATED ON PATIENT'S STATUS AND UPDATE HER AT TIME OF DC. [facility] AT [facility] NOTIFIED OF PATIENT'S ADMISSION AND VERIFIED UNDERSTANDING Initialized on 05/24/19 09:20 - END OF NOTE Assessment/Plan (1) Cellulitis of left toe Current Visit: Yes Status: Acute Assessment & Plan: on po bactrim, awaiting ECF placment at this time. Code(s): L03.032 - CELLULITIS OF LEFT TOE (2) Fracture of phalanx of lesser toe of left foot Current Visit: Yes Status: Acute Code(s): S92.502A - DISPLACED UNSP FRACTURE OF LEFT LESSER TOE(S), INIT (3) Hypertension Current Visit: Yes Status: Acute Code(s): I10 - ESSENTIAL (PRIMARY) HYPERTENSION (4) Skin ulcer Current Visit: Yes Status: Acute Code(s): L98.499 - NON-PRESSURE CHRONIC ULCER OF SKIN OF SITES W UNSP SEVERITY
[2019-05-25] MEDS: THERAGRAN MULTIVITAMIN PO SCH (09:44)
[2019-05-25] MEDS: Protonix 40MG Tablet PO SCH (09:45)
[2019-05-25] MEDS: TYLENOL 325 MG PO SCH ×2 (09:45→22:55)
[2019-05-25] MEDS: Ativan 0.5 MG PO SCH ×3 (09:45→22:25)
[2019-05-25] MEDS: BACTRIM DS TABLET PO SCH ×2 (09:45→22:25)
[2019-05-25] MEDS: Zocor 10MG PO SCH (09:45)
[2019-05-25] MEDS: Calcium 500MG W/Vit D Tablet PO SCH (09:45)
[2019-05-25] MEDS: VITA-BEE WITH C PO SCH (09:45)
[2019-05-25] MEDS: CLARITIN 10 MG PO SCH (09:45)
[2019-05-25] MEDS: NORVASC 5 MG PO SCH (09:45)
[2019-05-25] MEDS: Artificial Tears 15 ML OP SCH ×2 (09:45→22:37)
[2019-05-25] MEDS: FEOSOL 325 MG PO SCH (09:45)
[2019-05-25] MEDS: Colace 100 MG PO SCH (09:45)
[2019-05-25] MEDS: Vitamin C 500 MG PO SCH (09:45)
[2019-05-25] MEDS: FIBERCON 625 MG PO SCH (09:46)
[2019-05-25] MEDS: PATIENT OWN MEDICATION PO SCH ×2 (09:46→09:47)
[2019-05-25] MEDS: TYLENOL 325 MG PO PRN (16:06)
[2019-05-25] MEDS: Naprosyn 500 MG PO PRN (22:32)
[2019-05-26 05:53] LABS: Absolute Neutrophil Ct (ANC) 3.21 (1.4-6.9); BASOPHIL % 0.8 % (0.0-0.4); Basophil (Absolute #) 0.05 (0-0.4); Eosinophil % 6.3 % (0.00-5.0); Hematocrit 31.2 % (35-47); Hemoglobin 9.8 gm/dl (12.0-16.0); Lymphocyte (Absolute #) 1.92 (1.0-4.6); Lymphocytes % 30.3 % (24.0-44.0); Mean Cell Volume 93.1 fl (78-100); Mean Corpuscular Hemoglobin 29.3 pg (26-32); Mean Corpuscular Hgb Concent. 31.4 g/dl (32-36); Mean Platelet Volume 9.9 fl (7.5-11.0); Monocyte (Absolute #) 0.76 (0.0-1.3); Neutrophil % 50.6 % (36.0-66.0); Platelet Count 256 K/mm3 (150-450); Red Blood Count 3.35 M/mm3 (4.1-5.4); White Blood Count 6.3 K/mm3 (4.0-10.5)
[2019-05-26 05:56] LABS: Calcium 9.2 mg/dL (8.4-10.2); Creatinine 1 1.06 mg/dL (0.52-1.04); Potassium 4.5 mmol/L (3.5-5.1)
[2019-05-26] MEDS: THERAGRAN MULTIVITAMIN PO SCH (10:07)
[2019-05-26] MEDS: BACTRIM DS TABLET PO SCH ×2 (10:07→21:46)
[2019-05-26] MEDS: NORVASC 5 MG PO SCH (10:07)
[2019-05-26] MEDS: Ativan 0.5 MG PO SCH ×3 (10:07→21:47)
[2019-05-26] MEDS: Calcium 500MG W/Vit D Tablet PO SCH (10:07)
[2019-05-26] MEDS: FEOSOL 325 MG PO SCH (10:08)
[2019-05-26] MEDS: CLARITIN 10 MG PO SCH (10:08)
[2019-05-26] MEDS: Colace 100 MG PO SCH (10:08)
[2019-05-26] MEDS: PATIENT OWN MEDICATION PO SCH ×2 (10:08→10:09)
[2019-05-26] MEDS: Vitamin C 500 MG PO SCH (10:08)
[2019-05-26] MEDS: Zocor 10MG PO SCH (10:08)
[2019-05-26] MEDS: TYLENOL 325 MG PO SCH ×2 (10:08→21:46)
[2019-05-26] MEDS: Protonix 40MG Tablet PO SCH (10:08)
[2019-05-26] MEDS: Artificial Tears 15 ML OP SCH ×2 (10:14→21:46)
--- NOTE | 2019-05-26 10:22 | PCM.NOTE ---
Date and Time: 05/26/19 1017 Subjective Assessment: Patient reported a fall 2 days ago and states both her feet hurt after this fall. She continues to want to go to [place]. She has follow up scheduled with podiatry and we tried to move this appointment up but were not able to do this. - Review of Systems Constitutional: Other (excessive washing and drying of hands noted by myself and nurses) Respiratory: No Symptoms Cardiac: No Symptoms Abdominal/Gastrointestinal: No Symptoms Genitourinary Symptoms: No Symptoms Musculoskeletal: Other (bilateral foot pain) Skin: Cellulitis, Other (sore on left 2nd toe) Objective Exam General Appearance: no apparent distress, alert, other (repeats actions over and over) Neurologic Exam: alert, cooperative Skin Exam: normal color, warm, dry, other (left big toe with 1 x 1 cm open ulcer with clean base and minimal surrounding erythema. left 2nd toe comes up over big toe on left side with minimal tenderness of this area. mild tenderness of right forefoot.) Wound Assessment: Skin/Wound Assessment Wound/Incision Assessment Start: 05/22/19 01: 04 Text: Status: Active Freq: Q6H Protocol: Document 05/26/19 08:00 AR (Rec: 05/26/19 10:03 AR [id number]) Wound/Incision Assessment Toe Wound Assessment Shift Assessment Wound Type Abrasion Wound Stage Non Pressure Wound Dressing Status Dry & Intact Drainage Amount None Primary Dressing Bandaid Respiratory Exam: normal breath sounds, lungs clear, No crackles/rales, No rhonchi, No wheezing Cardiovascular Exam: regular rate/rhythm, normal heart sounds, No murmur, No friction rub, No gallop Gastrointestinal/Abdomen Exam: soft, normal bowel sounds, No tenderness, No distention, No mass Extremity Exam: other (no c/c/e) OBJECTIVE DATA Vital Signs: Vital Signs - 24 hr Temp Pulse Resp BP Pulse Ox 05/26/19 07:53 98.1 F 79 18 135/62 94 L 05/26/19 04:15 98.2 F 69 20 141/76 95 05/26/19 00:00 98.5 F 93 H 20 167/72 96 05/25/19 19:46 97.8 F 81 20 123/57 98 05/25/19 15:55 97.8 F 73 16 127/60 96 05/25/19 12:00 98.6 F 78 18 139/63 95 Pain Assessment - Last Documented Pain Intensity 8 Pain Scale Used 0-10 Pain Scale Intake and Output: Intake & Output 05/24/19 05/25/19 05/26/19 05/27/19 06:59 06:59 06:59 06:59 Intake Total 526 1220 400 360 Output Total 1100 Balance -574 1220 400 360 Weight 60 kg 60 kg Lab Results: Lab Results-Last 24 Hours 05/26/19 05/26/19 Range/Units 05:35 05:35 WBC 6.3 (4.0-10.5) K/mm3 RBC 3.35 L (4.1-5.4) M/mm3 Hgb 9.8 L (12.0-16.0) gm/dl Hct 31.2 L (35-47) % MCV 93.1 (78-100) fl MCH 29.3 (26-32) pg MCHC 31.4 L (32-36) g/dl RDW 13.0 (11.5-14.0) % Plt Count 256 (150-450) K/mm3 MPV 9.9 (7.5-11.0) fl Gran % 50.6 (36.0-66.0) % Eos # (Auto) 0.40 (0-0.5) Absolute Lymphs (auto) 1.92 (1.0-4.6) Absolute Monos (auto) 0.76 (0.0-1.3) Lymphocytes % 30.3 (24.0-44.0) % Monocytes % 12.0 (0.0-12.0) % Eosinophils % 6.3 H (0.00-5.0) % Basophils % 0.8 (0.0-0.4) % Absolute Granulocytes 3.21 (1.4-6.9) Basophils # 0.05 (0-0.4) Sodium 138 (137-145) mmol/L Potassium 4.5 (3.5-5.1) mmol/L Chloride 106 (98-107) mmol/L Carbon Dioxide 29 (22-30) mmol/L Anion Gap 8.0 (5-15) MEQ/L BUN 30 H (7-17) mg/dL Creatinine 1.06 H (0.52-1.04) mg/dL Estimated GFR 54.0 ML/MIN Glucose 99 (74-106) mg/dL Calcium 9.2 (8.4-10.2) mg/dL Multi-Disciplinary Progress Notes: Multi-Disciplinary Progress Notes 05/25/19 16:02 Physical Therapy Note by Jelena Rodriguez PT. REPORTS MINIMAL L 2ND TOE PN TODAY. REPORTS SHE FEEL IN HER ROOM LAST NIGHT AND L HAND IS SORE. BAND-AID INTACT L 2ND TOE. CLEANSED WOUND W/ HIBICLENS/STERILE WATER. DEBRIDE ESCHAR FROM IP JOINT 2ND TOE W/ SCISSORS AND FORCEPS. NO ODOR AND MINIMAL SEROSANGUINEOUS DRAINAGE ON BAND-AID. APPLIED ABRRIER OINTMENT TO WOUND AND CALLOUS AREAS. WOUND COVERED W/ BAND-AID. PT. REFUSED TO WALK W/ P.T. CALL LIGHT IN PLACE. PT. ADVISED TO USE CALL LIGHT WHEN NEEDING TO GET UP. WILL CONT. P.T. JELENA RODRIGUEZ PT Initialized on 05/25/19 16:02 - END OF NOTE 05/25/19 10:59 Case Management Note by Michelle Krishna S/W [employer] EMPLOYEE'S REPRESENTATIVE- THEY ARE CHECKING IN TO PATIENT'S MEDICAID TO SEE IF THIS IS AN OPTION FOR PATIENT Initialized on 05/25/19 10:59 - END OF NOTE Assessment/Plan (1) Cellulitis of left toe Current Visit: Yes Status: Acute Assessment & Plan: Continue bactrim. Improving. Continue wound care with nursing and PT. Code(s): L03.032 - CELLULITIS OF LEFT TOE (2) Skin ulcer Current Visit: Yes Status: Acute Assessment & Plan: Improving. Code(s): L98.499 - NON-PRESSURE CHRONIC ULCER OF SKIN OF SITES W UNSP SEVERITY (3) Hypertension Current Visit: Yes Status: Acute Assessment & Plan: Continue home medication. Code(s): I10 - ESSENTIAL (PRIMARY) HYPERTENSION (4) Bipolar 1 disorder Current Visit: No Status: Acute Assessment & Plan: Continue home medication. [facility] while getting foot problems taken care of Code(s): F31.9 - BIPOLAR DISORDER, UNSPECIFIED (5) Decreased renal function Current Visit: Yes Status: Resolved Assessment & Plan: Will continue to monitor but not daily. (6) Fracture of phalanx of lesser toe of left foot Current Visit: Yes Status: Acute Assessment & Plan: I think this may have happened some time ago. She has outpatient podiatry appointment next week. Will wait for this. Code(s): S92.502A - DISPLACED UNSP FRACTURE OF LEFT LESSER TOE(S), INIT (7) Gait instability Current Visit: No Status: Acute Assessment & Plan: Continue fall precautions. Code(s): R26.81 - UNSTEADINESS ON FEET (8) OCD (obsessive compulsive disorder) Current Visit: Yes Status: Acute Assessment & Plan: Treated along with bipolar disorder at [facility]. Code(s): F42.9 - OBSESSIVE-COMPULSIVE DISORDER, UNSPECIFIED (9) Foot pain, bilateral Current Visit: Yes Status: Acute Assessment & Plan: Pain bilateral since fall. Will check X-rays. Code(s): M79.671 - PAIN IN RIGHT FOOT; M79.672 - PAIN IN LEFT FOOT
--- NOTE | 2019-05-26 11:25 | XRAY ---
Indication: Pain. Comparison: None 3 nonweightbearing views of the right foot demonstrates osteopenia, 1st MTP bunion deformity, and small plantar heel spur. No other bony, articular, or soft tissue abnormalities.
--- NOTE | 2019-05-26 11:30 | XRAY ---
Indication: Pain. Comparison: May 21, 2019. 3 nonweightbearing views of the left foot unchanged again demonstrating osteopenia, 2nd toe deformity with soft tissue swelling, 1st MTP bunion deformity, and plantar heel spur. No new bony, articular, or soft tissue abnormalities.
[2019-05-26] MEDS: FIBERCON 625 MG PO SCH (12:00)
[2019-05-26] MEDS: VITA-BEE WITH C PO SCH (12:00)
[2019-05-26] MEDS: TYLENOL 325 MG PO PRN (16:16)
[2019-05-27] MEDS: BACTRIM DS TABLET PO SCH (09:24)
[2019-05-27] MEDS: Zocor 10MG PO SCH (09:24)
[2019-05-27] MEDS: THERAGRAN MULTIVITAMIN PO SCH (09:24)
[2019-05-27] MEDS: CLARITIN 10 MG PO SCH (09:24)
[2019-05-27] MEDS: NORVASC 5 MG PO SCH (09:25)
[2019-05-27] MEDS: Ativan 0.5 MG PO SCH (09:25)
[2019-05-27] MEDS: Vitamin C 500 MG PO SCH (09:25)
[2019-05-27] MEDS: TYLENOL 325 MG PO SCH (09:26)
[2019-05-27] MEDS: Protonix 40MG Tablet PO SCH (09:26)
[2019-05-27] MEDS: Calcium 500MG W/Vit D Tablet PO SCH (09:27)
[2019-05-27] MEDS: Colace 100 MG PO SCH (09:27)
[2019-05-27] MEDS: FIBERCON 625 MG PO SCH (09:27)
[2019-05-27] MEDS: VITA-BEE WITH C PO SCH (09:27)
[2019-05-27] MEDS: FEOSOL 325 MG PO SCH (09:27)
[2019-05-27] MEDS: PATIENT OWN MEDICATION PO SCH ×2 (09:27→09:35)
[2019-05-27] MEDS: Naprosyn 500 MG PO PRN (09:28)
[2019-05-27] MEDS: Artificial Tears 15 ML OP SCH (09:28)
[2019-05-27 11:29] VITALS: BP 109/52; PULSE 70; O2SAT 100
--- NOTE | 2019-05-27 12:59 | PCM.DCORD ---
- Discharge Discharge Date: 05/27/19 Disposition: Skilled Care @ [facility] Condition: Fair Prescriptions: New Smz/Tmp Ds Tablet [Bactrim Ds Tablet] 1 tab PO BID #6 tablet Calcium Polycarbophil 625 mg [Fibercon 625 mg] 625 mg PO DAILY tablet Continue Omeprazole 20 MG [Prilosec 20 mg] 40 mg PO DAILY Docusate Sodium 100 mg [Colace 100 MG] 100 mg PO DAILY Atorvastatin Calcium [Lipitor] 10 mg PO DAILY Cranberry Conc/C/Bacill Coag [Cranberry Tablet] 1 each PO DAILY Acetaminophen [Tylenol] 650 mg PO BID Calcium Citrate/Vitamin D3 [Citracal + D Caplet] 1 each PO DAILY Ascorbic Acid 500 mg [Vitamin C 500 MG] 1,000 mg PO DAILY Vitamin B Complex [Stress B] 1 each PO DAILY Cetirizine HCl [Zyrtec] 10 mg PO DAILY Naproxen 500 mg PO BID PRN #14 tablet Paliperidone Palmitate [Invega Sustenna 156 mg] 234 mg IM UD Dextran 70/Hypromellose [Natural Balance Tears Eye Drop] 3 drops BID Amlodipine Besylate 5 mg [Norvasc 5 mg] 5 mg PO DAILY Multivitamin/Iron/Folic Acid [Centrum Adults Tablet] 1 each PO DAILY Fiber [Fiber Diet] 1 each PO DAILY Mirabegron [Myrbetriq] 50 mg PO DAILY Ferrous Sulfate 325 mg [Feosol 325 mg] 325 mg PO DAILY #30 tablet Lorazepam 0.5 mg [Ativan 0.5 MG] 0.5 mg PO TID #90 tablet Follow up with: LENNIE BONNER [Primary Care Provider] - 1 Week
--- NOTE | 2019-05-31 13:35 | DS ---
DISCHARGE DIAGNOSES: 1) CELLULITIS LEFT SECOND TOE. 2) SKIN ULCER OF THE LEFT SECOND TOE. 3) HYPERTENSION. 4) BIPOLAR I DISODER. 5) DECREASED RENAL FUNCTION. 6) FRACTURE OF THE PHALANX OF THE LEFT THIRD TOE OF LEFT FOOT. 7) GAIT INSTABILITY. 8) OBSESSIVE COMPULSIVE DISORDER. 9) BILATERAL FOOT PAIN. DISCHARGE PHYSICAL EXAMINATION: VITALS: Temperature current 97.7F, temperature max 97.9F heart rate 70, respiratory rate 20, blood pressure 109/52. Oxygen saturation 100% on room air. GENERAL: The patient was sitting up in bed preoccupied with what she is going to wear when she is discharged to [facility], in no acute distress. CVS: She has a regular rate and rhythm. No murmurs, gallops or rubs are appreciated. CHEST: Clear to auscultation bilaterally. ABDOMEN: Soft, nontender, nondistended with normal bowel sounds. EXTREMITIES: Her left second toe has a 0.5 x 0.5 cm open area with good granulation tissue. No surrounding erythema at this time. There is marked deformity of this toe coming up and over her big toe. HOSPITAL COURSE: 1) CELLULITIS LEFT TOE: She was first started on Vancomycin which was changed to Bactrim which she had been on as outpatient before coming in as her culture was Staphylococcus aureus that was not methicillin resistant. She was continued on this by mouth and will plan to finish out three more days or an oral course of Bactrim. 2) SKIN ULCER: PT was consulted and followed her during her hospitalization. Ulcer looks like it is healing well. 3) HYPERTENSION: She was continued on her home antihypertensive. 4) BIPOLAR I DISODER: She was continued on lorazepam which I sent a prescription to the pharmacy for as well as she will need her next Invega shot as scheduled at [facility] the end of this month. 5) DECREASED RENAL FUNCTION: The patient stated that she had to have naproxen. Her renal functions are only slightly elevated and will continue to monitor at [facility]. 6) FRACTURE OF THE PHALANX OF LEFT THIRD TOE OF LEFT FOOT: This was shown on MRI. She has an upcoming appointment with her In Store Marketer, Dr. Rae, for further evaluation and management. It appears that this fracture is most likely old with a nonunion as she is really not tender where the fracture is located. 7) GAIT INSTABILITY: She is on fall precautions and seen by PT while she was here. 8) OBSESSIVE COMPULSIVE DISORDER: She exhibited obsessive compulsive disorder behavior throughout her hospitalization such as washing her hands and drying her hands multiple times. 9) BILATERAL FOOT PAIN: She reported a fall that was unwitnessed a couple days before her discharge. We re-x-rayed and there were no new findings on either of her feet where she was some discomfort. Will continue with Tylenol as needed and naproxen as scheduled.
== END 2019-05-27 13:35 | DRG 594 ==
LOC: ED 18:47 → MED SURG 22:40 → OBSVTOIN 05-23 08:55 → MED SURG 05-24 14:31
PROVIDERS: ADMIT Internal Medicine; ATTEND Internal Medicine
DX: L97.529 Non-pressure chronic ulcer of other part of left foot with unspecified severity (principal); L03.032 Cellulitis of left toe; S92.502A Displaced unspecified fracture of left lesser toe(s), initial encounter for closed fracture; M20.42 Other hammer toe(s) (acquired), left foot; F31.9 Bipolar disorder, unspecified; I10 Essential (primary) hypertension; D64.9 Anemia, unspecified; R26.81 Unsteadiness on feet; F42.9 Obsessive-compulsive disorder, unspecified; M79.671 Pain in right foot; M79.672 Pain in left foot; Z79.899 Other long term (current) drug therapy
CPT/HCPCS: 36000; 36415; 72220; 73630; 73700; 73721; 80048; 80053; 81001; 83036; 83605; 85025; 85652; 87070; 87077; 87186; 93268; 94762; 96365; 96374; 96375; 97161; 97597; 99285; G0378; J1885; J2405; J3370; A9270-GY

== ENCOUNTER 2019-07-08 16:17 | Observation (INO) | payer MEDICARE ==
[2019-07-08] MEDS ORDERED: Protonix 40MG Tablet PO ONE (21:00)
[2019-07-08] MEDS ORDERED: Zocor 10MG PO ONE (21:00)
[2019-07-08] MEDS ORDERED: Ativan 0.5 MG PO ONE (21:00)
[2019-07-08] MEDS ORDERED: Naprosyn 500 MG PO ONE (21:00)
[2019-07-08] MEDS ORDERED: Artificial Tears 15 ML OP ONE (21:00)
--- NOTE | 2019-07-09 10:31 | PCM.HP ---
History of Present Illness - Chief Complaint Chief Complaint: UNSAFE AT HOME History of Present Illness: is a 74 year old female who was direct admitted yesterday by her primary care provider Dr East, Amanda has a longstanding history of severe obsessive compulsive disorder and has been extremely difficult to manage, she was recently in a local fdc and apparently there was some issue of payer source and was released but she feels she is unable to care for herself in her home and Dr East and her psych housing case manager feels she is unable to care for herself and unsafe to live independently. She complains of feeling tired this morning and is obsessive about getting her medication, she is in no distress. - Review of Systems Constitutional: No Fever, No Chills Respiratory: No Cough, No Short Of Breath Cardiac: No Chest Pain Abdominal/Gastrointestinal: No Abdominal Pain, No Nausea, No Vomiting, No Diarrhea, No Constipation Genitourinary Symptoms: No Dysuria, No Frequency Skin: No Symptoms All Other Systems: Reviewed and Negative Medications & Allergies Home Medications: Home Medication List Omeprazole 20 MG [Prilosec 20 mg] 40 mg PO DAILY 04/23/13 [History Confirmed 06/23] Ascorbic Acid 500 mg [Vitamin C 500 MG] 1,000 mg PO DAILY 03/04/17 [ History Confirmed 07/08/19] Atorvastatin Calcium [Lipitor] 10 mg PO DAILY 03/04/17 [History Confirmed ] Calcium Citrate/Vitamin D3 [Citracal + D Caplet] 1 each PO BID 03/04/17 [ History Confirmed 07/08/19] Cetirizine HCl [Zyrtec] 10 mg PO DAILY 03/04/17 [History Confirmed 07/08/19] Cranberry Conc/C/Bacill Coag [Cranberry Tablet] 1 each PO DAILY 03/04/17 [ History Confirmed 07/08/19] Vitamin B Complex [Stress B] 1 each PO DAILY 03/04/17 [History Confirmed ] Naproxen 500 mg PO BID PRN #14 tablet 01/08/18 [Rx Confirmed 07/08/19] Dextran 70/Hypromellose [Natural Balance Tears Eye Drop] 3 drops OP BID [History Confirmed 07/08/19] Paliperidone Palmitate [Invega Sustenna 156 mg] 234 mg IM UD 04/24/18 [History Confirmed 07/08/19] Amlodipine Besylate 5 mg [Norvasc 5 mg] 5 mg PO DAILY 04/15/19 [History Confirmed 07/08/19] Fiber [Fiber Diet] 1 each PO DAILY 04/15/19 [History Confirmed 07/08/19] Mirabegron [Myrbetriq] 50 mg PO DAILY 04/15/19 [History Confirmed 07/08/19] Multivitamin/Iron/Folic Acid [Centrum Adults Tablet] 1 each PO DAILY 04/15/19 [ History Confirmed 07/08/19] Ferrous Sulfate 325 mg [Feosol 325 mg] 325 mg PO DAILY #30 tablet [Rx Confirmed 07/08/19] Calcium Polycarbophil 625 mg [Fibercon 625 mg] 625 mg PO DAILY tablet 05/27 [Rx Confirmed 07/08/19] Lorazepam 0.5 mg [Ativan 0.5 MG] 0.5 mg PO TID #90 tablet 05/27/19 [Rx Confirmed 07/08/19] Acetaminophen 500 mg [Tylenol Extra Strength 500 mg] 1,000 mg PO BID 07/07 [History Confirmed 07/08/19] Docusate Sodium 100 mg [Colace 100 MG] 100 mg PO BID 07/08/19 [History Confirmed 07/08/19] Fluoxetine HCl 20 mg [Prozac 20 MG] 20 mg PO DAILY 07/08/19 [History Confirmed 07/08/19] Allergies/Adverse Reactions: Allergies Allergy/AdvReac Type Severity Reaction Status Date / Time allopurinol sodium Allergy Mild Verified 07/08/19 21:54 [From Aloprim] betamethasone Allergy Mild Verified 07/08/19 21:54 [From Celestone] betamethasone sodium Allergy Mild Verified 07/08/19 21:54 phosphate [From Celestone] cefaclor [From Ceclor] Allergy Mild Verified 07/08/19 21:54 lisinopril Allergy Mild Verified 07/08/19 21:54 Penicillins Allergy Mild Verified 07/08/19 21:54 - Past Medical History Past Medical History: Yes Neurological History: No Pertinent History ENT History: Cataracts Cardiac History: Hypertension Respiratory History: No Pertinent History Endocrine Medical History: No Pertinent History Musculoskelatal History: Arthritis GI Medical History: No Pertinent History History: Other Pyscho-Social History: Anxiety, Bipolar, Other Reproductive Disorders: No Pertinent History Comment: pt states that she takes a urine pill because she urinates alot - Female History Are you now?: No - Past Surgical History Past Surgical History: Yes Neuro Surgical History: No Pertinent History Cardiac History: No Pertinent History Respiratory Surgery: No Pertinent History GI Surgical History: No Pertinent History Genitourinary Surgical Hx: No Pertinent History Musculskeletal Surgical Hx: No Pertinent History Female Surgical History: Tubal Ligation Other Surgical History: TUBAL AND MOUTH SURGERY, abhinav. cataract surgery. Pt poor historian - Social History Smoking Status: Never smoker Exposure to second hand smoke: No Alcohol: None Drug Use: none Significant Family History: no pertinent family hx - Physical Exam Vital Signs: Vital Signs - 24 hr Temp Pulse Resp BP Pulse Ox 07/09/19 08:00 97.9 F 70 18 143/63 94 L 07/08/19 19:40 97.7 F 78 18 152/65 97 07/08/19 19:39 97.7 F 78 18 152/65 97 07/08/19 18:49 97.7 F 78 18 152/65 97 General Appearance: no apparent distress Neurologic Exam: alert, cooperative Respiratory Exam: normal breath sounds, lungs clear, No respiratory distress Cardiovascular Exam: regular rate/rhythm, normal heart sounds, normal peripheral pulses Gastrointestinal/Abdomen Exam: soft, normal bowel sounds, No tenderness, No mass Extremity Exam: normal inspection, normal range of motion, pelvis stable Skin Exam: normal color, warm, dry, No rash Assessment/Plan (1) OCD (obsessive compulsive disorder) Current Visit: No Status: Acute Assessment & Plan: case management is working on a safe living situation/placement for Amanda at this time. she is medically stable at this time and will be transferred when a bed is available. Code(s): F42.9 - OBSESSIVE-COMPULSIVE DISORDER, UNSPECIFIED (2) Bipolar 1 disorder Current Visit: No Status: Acute Code(s): F31.9 - BIPOLAR DISORDER, UNSPECIFIED (3) Manic behavior Current Visit: No Status: Acute Code(s): F30.10 - MANIC EPISODE WITHOUT PSYCHOTIC SYMPTOMS, UNSPECIFIED (4) Inability to return to living situation Current Visit: Yes Status: Acute Code(s): Z59.9 - PROBLEM RELATED TO HOUSING AND ECONOMIC CIRCUMSTANCES, UNSP
[2019-07-09] MEDS: Ativan 0.5 MG PO SCH ×3 (11:20→22:49)
[2019-07-09] MEDS: Vitamin C 500 MG PO SCH (11:20)
[2019-07-09] MEDS: THERAGRAN MULTIVITAMIN PO SCH (11:20)
[2019-07-09] MEDS: Prozac 20 MG PO SCH (11:20)
[2019-07-09] MEDS: FIBERCON 625 MG PO SCH (11:20)
[2019-07-09] MEDS: Zocor 10MG PO SCH (11:20)
[2019-07-09] MEDS: CLARITIN 10 MG PO SCH (11:20)
[2019-07-09] MEDS: Colace 100 MG PO SCH ×2 (11:20→22:54)
[2019-07-09] MEDS: NORVASC 5 MG PO SCH (11:20)
[2019-07-09] MEDS: FEOSOL 325 MG PO SCH (11:21)
[2019-07-09] MEDS: MYRBETRIQ PO SCH (11:21)
[2019-07-09] MEDS: PATIENT OWN MEDICATION PO SCH ×2 (11:21→11:22)
[2019-07-09] MEDS: Protonix 40MG Tablet PO SCH (11:21)
[2019-07-09] MEDS: PATIENT OWN MEDICATION OP SCH ×2 (11:22→17:07)
[2019-07-09] MEDS: TYLENOL EXTRA STRENGTH 500 MG PO SCH ×2 (11:35→22:50)
[2019-07-09] MEDS: Naprosyn 500 MG PO PRN ×2 (11:36→22:53)
[2019-07-09] MEDS: Calcium 500MG W/Vit D Tablet PO SCH ×2 (11:36→22:54)
[2019-07-09] MEDS ORDERED: DEXTRAN OP SCH (22:00)
[2019-07-09] MEDS ORDERED: HYPROMELLOSE OP SCH (22:00)
[2019-07-09] MEDS ORDERED: NON-FORMULARY ITEM (Calcium Citrate/Vitamin D3 [Citracal + D Caplet] 1 EACH) PO SCH (22:00)
[2019-07-10] MEDS: Calcium 500MG W/Vit D Tablet PO SCH ×2 (08:16→23:14)
[2019-07-10] MEDS: Ativan 0.5 MG PO SCH ×3 (08:16→20:52)
[2019-07-10] MEDS: Colace 100 MG PO SCH ×2 (08:16→23:14)
[2019-07-10] MEDS: Vitamin C 500 MG PO SCH (08:16)
[2019-07-10] MEDS: CLARITIN 10 MG PO SCH (08:17)
[2019-07-10] MEDS: TYLENOL EXTRA STRENGTH 500 MG PO SCH ×2 (08:17→20:49)
[2019-07-10] MEDS: Prozac 20 MG PO SCH (08:17)
[2019-07-10] MEDS: NORVASC 5 MG PO SCH (08:17)
[2019-07-10] MEDS: Zocor 10MG PO SCH (08:17)
[2019-07-10] MEDS: THERAGRAN MULTIVITAMIN PO SCH (08:17)
[2019-07-10] MEDS: Protonix 40MG Tablet PO SCH (08:17)
[2019-07-10] MEDS: FEOSOL 325 MG PO SCH (08:17)
[2019-07-10] MEDS: FIBERCON 625 MG PO SCH (08:18)
[2019-07-10] MEDS: PATIENT OWN MEDICATION PO SCH ×2 (08:18→08:19)
[2019-07-10] MEDS: MYRBETRIQ PO SCH (08:18)
[2019-07-10] MEDS: PATIENT OWN MEDICATION OP SCH ×2 (08:19→20:57)
--- NOTE | 2019-07-10 08:39 | PCM.NOTE ---
Date and Time: 07/10/19 0838 Subjective Assessment: patient denies any problems, she is in bed feeding herself breakfast. she is hoping to go to [facility] upon discharge Objective Exam General Appearance: no apparent distress, alert, anxiety Skin Exam: normal color, warm, dry Respiratory Exam: normal breath sounds, lungs clear, No respiratory distress Cardiovascular Exam: regular rate/rhythm, normal heart sounds Gastrointestinal/Abdomen Exam: soft, No tenderness, No mass OBJECTIVE DATA Vital Signs: Vital Signs - 24 hr Temp Pulse Resp BP Pulse Ox 07/09/19 20:00 99.1 F 83 20 150/67 95 07/09/19 15:58 97.8 F 84 18 142/67 93 L 07/09/19 11:28 98.9 F 77 18 146/66 93 L Pain Assessment - Last Documented Pain Intensity 0 Pain Scale Used 0-10 Pain Scale Intake and Output: Intake & Output 07/07/19 07/08/19 07/09/19 07/10/19 11:59 11:59 11:59 11:59 Intake Total 880 960 Output Total 900 1100 Balance -20 -140 Weight 61.9 kg Assessment/Plan (1) OCD (obsessive compulsive disorder) Current Visit: No Status: Acute Code(s): F42.9 - OBSESSIVE-COMPULSIVE DISORDER, UNSPECIFIED (2) Bipolar 1 disorder Current Visit: No Status: Acute Code(s): F31.9 - BIPOLAR DISORDER, UNSPECIFIED (3) Manic behavior Current Visit: No Status: Acute Code(s): F30.10 - MANIC EPISODE WITHOUT PSYCHOTIC SYMPTOMS, UNSPECIFIED (4) Inability to return to living situation Current Visit: Yes Status: Acute Code(s): Z59.9 - PROBLEM RELATED TO HOUSING AND ECONOMIC CIRCUMSTANCES, UNSP
[2019-07-10] MEDS ORDERED: NON-FORMULARY ITEM (Cetirizine Hcl [Zyrtec] 10 MG) PO SCH (10:00)
[2019-07-10] MEDS ORDERED: VITAMIN B COMPLEX PO SCH (10:00)
[2019-07-10] MEDS ORDERED: IRON PO SCH (10:00)
[2019-07-10] MEDS ORDERED: [UNRECOGNIZED DRUG - OTHER] PO SCH (10:00)
[2019-07-10] MEDS ORDERED: NON-FORMULARY ITEM (Atorvastatin Calcium [Lipitor] 10 MG) PO SCH (10:00)
[2019-07-10] MEDS ORDERED: MULTIVITAMIN PO SCH (10:00)
[2019-07-10] MEDS ORDERED: FOLIC ACID PO SCH (10:00)
[2019-07-10] MEDS ORDERED: NON-FORMULARY ITEM (Omeprazole 20 Mg [Prilosec 20 Mg] 40 MG) PO SCH (10:00)
[2019-07-10] MEDS: Naprosyn 500 MG PO PRN (20:52)
--- NOTE | 2019-07-11 09:02 | PCM.NOTE ---
Date and Time: 07/11/19 0856 Subjective Assessment: Patient reports she has bunions on both feet now. She reports she is sleepy this morning but no other concerns. 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 I talked with her guardian, Esther Carrillo, on Thursday when the decision was made to make her a direct admission for [facility]'s safety. Esther is in agreement that she needs to be in a structured supervised environment. - Review of Systems Constitutional: No Symptoms Respiratory: No Symptoms Cardiac: No Symptoms Abdominal/Gastrointestinal: No Symptoms Genitourinary Symptoms: No Symptoms Musculoskeletal: No Symptoms Objective Exam General Appearance: no apparent distress Neurologic Exam: alert, cooperative, other Skin Exam: normal color, warm, dry, other (left 2nd toe with callous on top where toe is deformed from known fracture with malunion.), No rash Respiratory Exam: normal breath sounds, lungs clear, No crackles/rales, No rhonchi, No wheezing Cardiovascular Exam: regular rate/rhythm, normal heart sounds, No murmur, No friction rub, No gallop Gastrointestinal/Abdomen Exam: soft, normal bowel sounds, No tenderness, No distention, No mass Extremity Exam: other (left 2nd toe with deformity where toe comes over big toe ; right 2nd toe with deformity where toe comes over big toe.) OBJECTIVE DATA Vital Signs: Vital Signs - 24 hr Temp Pulse Resp BP Pulse Ox 07/11/19 08:00 98.6 F 75 20 171/70 97 07/10/19 23:31 98.5 F 67 18 131/60 96 07/10/19 19:50 97.9 F 70 18 169/73 96 07/10/19 15:54 97.8 F 63 20 118/98 98 07/10/19 12:00 97.8 F 68 20 141/63 95 Pain Assessment - Last Documented Pain Intensity 0 Pain Scale Used 0-10 Pain Scale Intake and Output: Intake & Output 07/09/19 07/10/19 07/11/19 07/12/19 06:59 06:59 06:59 06:59 Intake Total 400 1440 1430 480 Output Total 2000 900 Balance 400 -560 530 480 Weight 61.9 kg Assessment/Plan (1) Bipolar 1 disorder Current Visit: No Status: Acute Assessment & Plan: Continue current medication. She gets a monthly Invega shot and Belen Godinez with discharge planning will call [facility] and see when this is due and what arrangements have been made during pandemic for this. Code(s): F31.9 - BIPOLAR DISORDER, UNSPECIFIED (2) Hypertension Current Visit: No Status: Acute Assessment & Plan: Her blood pressure was high again this AM. Will try increasing amlodipine from 5 mg to 10 mg to see if her blood pressure can be better controlled through out the day. Code(s): I10 - ESSENTIAL (PRIMARY) HYPERTENSION (3) OCD (obsessive compulsive disorder) Current Visit: No Status: Acute Assessment & Plan: Continue current medication. Code(s): F42.9 - OBSESSIVE-COMPULSIVE DISORDER, UNSPECIFIED (4) Inability to return to living situation Current Visit: Yes Status: Acute Assessment & Plan: Patient will need a safe place to stay. She is unable to prepare her own meals, clean her home, or manage her own medications. Her embedded case manager at [facility], Justina, has also voiced concerns about her being able to take care of herself when she is living by herself at home. It is my understanding she is on a list for a residential but that there is a wait for this. Code(s): Z59.9 - PROBLEM RELATED TO HOUSING AND ECONOMIC CIRCUMSTANCES, UNSP
[2019-07-11] MEDS: Colace 100 MG PO SCH ×2 (09:07→21:41)
[2019-07-11] MEDS: TYLENOL EXTRA STRENGTH 500 MG PO SCH ×2 (09:07→15:30)
[2019-07-11] MEDS: Vitamin C 500 MG PO SCH (09:07)
[2019-07-11] MEDS: Prozac 20 MG PO SCH (09:07)
[2019-07-11] MEDS: Protonix 40MG Tablet PO SCH (09:07)
[2019-07-11] MEDS: CLARITIN 10 MG PO SCH (09:07)
[2019-07-11] MEDS: NORVASC 5 MG PO SCH (09:08)
[2019-07-11] MEDS: THERAGRAN MULTIVITAMIN PO SCH (09:08)
[2019-07-11] MEDS: Zocor 10MG PO SCH (09:08)
[2019-07-11] MEDS: Calcium 500MG W/Vit D Tablet PO SCH ×2 (09:08→21:41)
[2019-07-11] MEDS: FEOSOL 325 MG PO SCH (09:08)
[2019-07-11] MEDS: PATIENT OWN MEDICATION PO SCH ×2 (09:08)
[2019-07-11] MEDS: Ativan 0.5 MG PO SCH ×3 (09:08→21:41)
[2019-07-11] MEDS: PATIENT OWN MEDICATION OP SCH ×2 (09:09→21:41)
[2019-07-11] MEDS: MYRBETRIQ PO SCH (09:09)
[2019-07-11] MEDS: FIBERCON 625 MG PO SCH (09:09)
[2019-07-11] MEDS: Naprosyn 500 MG PO PRN ×2 (09:14→21:43)
[2019-07-11] MEDS ORDERED: NORVASC 5 MG PO ONE (15:58)
[2019-07-11] MEDS: Apresoline 25 MG TABLET PO PRN (20:08)
[2019-07-12] MEDS: FEOSOL 325 MG PO SCH (08:04)
[2019-07-12] MEDS: Protonix 40MG Tablet PO SCH (08:04)
[2019-07-12] MEDS: Vitamin C 500 MG PO SCH (08:04)
[2019-07-12] MEDS: Calcium 500MG W/Vit D Tablet PO SCH ×2 (08:05→20:22)
[2019-07-12] MEDS: Naprosyn 500 MG PO PRN ×2 (08:05→20:25)
[2019-07-12] MEDS: Ativan 0.5 MG PO SCH ×3 (08:05→20:20)
[2019-07-12] MEDS: Colace 100 MG PO SCH ×2 (08:05→20:22)
[2019-07-12] MEDS: Prozac 20 MG PO SCH (08:05)
[2019-07-12] MEDS: THERAGRAN MULTIVITAMIN PO SCH (08:05)
[2019-07-12] MEDS: NORVASC 5 MG PO SCH (08:05)
[2019-07-12] MEDS: Zocor 10MG PO SCH (08:05)
[2019-07-12] MEDS: CLARITIN 10 MG PO SCH (08:06)
[2019-07-12] MEDS: FIBERCON 625 MG PO SCH (08:06)
[2019-07-12] MEDS: PATIENT OWN MEDICATION OP SCH ×2 (08:07→20:23)
[2019-07-12] MEDS: PATIENT OWN MEDICATION PO SCH ×5 (08:07→20:22)
[2019-07-12] MEDS: MYRBETRIQ PO SCH (08:07)
[2019-07-12] MEDS: TYLENOL EXTRA STRENGTH 500 MG PO SCH ×2 (08:13→14:16)
--- NOTE | 2019-07-12 09:12 | PCM.NOTE ---
Date and Time: 07/12/19 0908 Subjective Assessment: Patient reports she was able to eat her breakfast and take her medication this AM. She tells me her schedule for the day which includes taking a bath. She has no concerns at this time. She would like to take her home lipitor instead of zocor which is on formulary here for statins. Objective Exam General Appearance: no apparent distress Neurologic Exam: alert, cooperative Skin Exam: normal color, warm Cardiovascular Exam: regular rate/rhythm, normal heart sounds, No murmur, No friction rub, No gallop Gastrointestinal/Abdomen Exam: soft, normal bowel sounds, No tenderness Extremity Exam: normal inspection, other (no c/c/e) OBJECTIVE DATA Vital Signs: Vital Signs - 24 hr Temp Pulse Resp BP Pulse Ox 07/12/19 07:34 98.7 F 75 18 131/61 07/12/19 00:00 98.0 F 60 20 159/69 97 07/11/19 20:00 98.7 F 70 18 177/79 96 07/11/19 16:00 97.8 F 76 20 180/80 96 07/11/19 12:00 97.9 F 74 20 177/77 95 Pain Assessment - Last Documented Pain Intensity 0 Pain Scale Used 0-10 Pain Scale Intake and Output: Intake & Output 07/10/19 07/11/19 07/12/19 07/13/19 06:59 06:59 06:59 06:59 Intake Total 1440 1430 2090 Output Total 2000 900 Balance -584 704 9305 Weight 61.9 kg Multi-Disciplinary Progress Notes: Multi-Disciplinary Progress Notes 07/11/19 16:13 Case Management Note by Belen Godinez F/U CALL TO [facility] [place] [facility], REPORTS THAT THE STAMP COLLECTOR HAS BEEN TIED UP IN MEETINGS ALL DAY TODAY, AND HAS NOT BEEN ABLE TO REVIEW CHART. REPORTS THAT IT WILL LIKELY BE TOMORROW BEFORE THEY WILL HAVE AN ANSWER. WILL CALL BACK TOMORROW FOR FOLLOWUP. Initialized on 07/11/19 16:13 - END OF NOTE 07/11/19 11:31 Case Management Note by Michelle Krishna ATTEMPTED TO MAKE REFERRALS FOR PLACEMENT: [facility]- WAS UNSURE IF THEY HAVE ANY BEDS AVAILABLE [facility]- NO ANSWER [facility]- NO CURRENTLY TAKING ANY ADMITS [facility]- HAS A FEMALE BED AVAILABLE- REFERRAL PACKET FAXED TO THEM AT , CONFIRMATION RECEIVED Initialized on 07/11/19 11:31 - END OF NOTE 07/11/19 09:30 Case Management Note by Belen Godinez CALL TO [facility] TO DISCUSS ANY BED AVAILABILITY PER PT'S REQUEST. LEFT VOICEMAIL MESSAGE FOR KO TO CALL US BACK. Initialized on 07/11/19 09:30 - END OF NOTE Assessment/Plan (1) Bipolar 1 disorder Current Visit: Yes Status: Acute Assessment & Plan: Continue current medication. She gets a monthly Invega shot ordered by her psychiatry provider at [facility]. Code(s): F31.9 - BIPOLAR DISORDER, UNSPECIFIED (2) Hypertension Current Visit: No Status: Acute Assessment & Plan: Patient received one dose of hydralazine yesterday. Her blood pressure is better this AM. I adjusted her amlodipine dose yesterday. Code(s): I10 - ESSENTIAL (PRIMARY) HYPERTENSION (3) OCD (obsessive compulsive disorder) Current Visit: Yes Status: Acute Assessment & Plan: Continue current medication. She follows up with [facility] as an outpatient. Code(s): F42.9 - OBSESSIVE-COMPULSIVE DISORDER, UNSPECIFIED (4) Inability to return to living situation Current Visit: Yes Status: Acute Assessment & Plan: Patient is unable to care for herself at home. Due to her OCD, she cannot finish tasks in a timely manner when she lives by herself. Code(s): Z59.9 - PROBLEM RELATED TO HOUSING AND ECONOMIC CIRCUMSTANCES, UNSP
[2019-07-12] MEDS: Apresoline 25 MG TABLET PO PRN (11:42)
[2019-07-13] MEDS: NORVASC 5 MG PO SCH (08:14)
[2019-07-13] MEDS: Protonix 40MG Tablet PO SCH (08:15)
[2019-07-13] MEDS: FEOSOL 325 MG PO SCH (08:15)
[2019-07-13] MEDS: CLARITIN 10 MG PO SCH (08:15)
[2019-07-13] MEDS: Calcium 500MG W/Vit D Tablet PO SCH ×2 (08:15→21:23)
[2019-07-13] MEDS: Colace 100 MG PO SCH ×2 (08:15→21:23)
[2019-07-13] MEDS: Prozac 20 MG PO SCH (08:15)
[2019-07-13] MEDS: Vitamin C 500 MG PO SCH (08:15)
[2019-07-13] MEDS: THERAGRAN MULTIVITAMIN PO SCH (08:15)
[2019-07-13] MEDS: Ativan 0.5 MG PO SCH ×3 (08:15→20:31)
[2019-07-13] MEDS: PATIENT OWN MEDICATION OP SCH ×2 (08:16→20:43)
[2019-07-13] MEDS: PATIENT OWN MEDICATION PO SCH ×3 (08:16→20:41)
[2019-07-13] MEDS: MYRBETRIQ PO SCH (08:16)
[2019-07-13] MEDS: FIBERCON 625 MG PO SCH (08:16)
[2019-07-13] MEDS: Naprosyn 500 MG PO PRN ×2 (08:18→20:46)
[2019-07-13] MEDS: TYLENOL EXTRA STRENGTH 500 MG PO SCH ×2 (08:19→14:14)
--- NOTE | 2019-07-13 08:46 | PCM.NOTE ---
Date and Time: 07/13/19 08 Subjective Assessment: Patient denies any concerns. She states she took a shower yesterday but did not wash her hair. She denies constipation or any problems urinating. - Review of Systems Constitutional: No Symptoms Respiratory: No Symptoms Cardiac: No Symptoms Abdominal/Gastrointestinal: No Symptoms Genitourinary Symptoms: No Symptoms Musculoskeletal: No Symptoms, Other (hammer toes on both feet) Objective Exam General Appearance: no apparent distress, other (Patient ambulating from bathroom to sink, wide based, unstable gait.) Neurologic Exam: alert, cooperative Skin Exam: normal color, warm, dry, other (knuckle of left toe with callous that is not open, On both feet 2nd toe comes over first), No rash Respiratory Exam: normal breath sounds, lungs clear, No crackles/rales, No rhonchi, No wheezing Cardiovascular Exam: regular rate/rhythm, normal heart sounds, No murmur, No friction rub, No gallop Gastrointestinal/Abdomen Exam: soft, normal bowel sounds, No tenderness, No distention, No mass Extremity Exam: other (no c/c/e) OBJECTIVE DATA Vital Signs: Vital Signs - 24 hr Temp Pulse Resp BP Pulse Ox 07/13/19 07:55 98.8 F 78 18 128/63 96 07/12/19 23:41 97.7 F 71 18 123/59 97 07/12/19 19:57 97.7 F 71 18 123/59 97 07/12/19 16:00 97.7 F 71 18 123/59 97 07/12/19 12:00 97.7 F 70 20 175/77 98 Pain Assessment - Last Documented Pain Intensity 0 Pain Scale Used 0-10 Pain Scale Intake and Output: Intake & Output 07/11/19 07/12/19 07/13/19 07/14/19 06:59 06:59 06:59 06:59 Intake Total 1430 2089 1875 Output Total 900 Balance 530 2089 187 Weight 61.9 kg Multi-Disciplinary Progress Notes: Multi-Disciplinary Progress Notes 07/12/19 11:47 Case Management Note by Michelle Krishna IS CUED FOR REVIEW S/W 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 She gets an Invega shot every month. Code(s): F31.9 - BIPOLAR DISORDER, UNSPECIFIED (2) Hypertension Current Visit: No Status: Acute Assessment & Plan: Better controlled. She required one dose of hydralazine yesterday. Code(s): I10 - ESSENTIAL (PRIMARY) HYPERTENSION (3) OCD (obsessive compulsive disorder) Current Visit: Yes Status: Acute Assessment & Plan: Continue current medication. Sees psychiatry as outpatient. Code(s): F42.9 - OBSESSIVE-COMPULSIVE DISORDER, UNSPECIFIED (4) Inability to return to living situation Current Visit: Yes Status: Acute Assessment & Plan: She is unable to make her own meals at home, manage her own medications and take them on time, keep her house clean and care for herself. She is also unstable on her feet. Code(s): Z59.9 - PROBLEM RELATED TO HOUSING AND ECONOMIC CIRCUMSTANCES, UNSP (5) Fracture of phalanx of toe of left foot with malunion Current Visit: Yes Status: Acute Qualifiers: Toe: lesser toe Fracture type: closed Fracture alignment: displaced Assessment & Plan: She has known fracture and has seen a disability coordinator as outpatient, Dr. Rae, in [place]. He did not do any further procedure on her foot. She saw him since her last hospitalization here which was after mid May 2019. Code(s): S92.912P - UNSP FRACTURE OF LEFT TOE(S), SUBS FOR FX W MALUNION
[2019-07-14] MEDS: NORVASC 5 MG PO SCH (08:29)
[2019-07-14] MEDS: FIBERCON 625 MG PO SCH (08:29)
[2019-07-14] MEDS: PATIENT OWN MEDICATION PO SCH ×3 (08:29→20:26)
[2019-07-14] MEDS: CLARITIN 10 MG PO SCH (08:29)
[2019-07-14] MEDS: Colace 100 MG PO SCH ×2 (08:29→20:30)
[2019-07-14] MEDS: Ativan 0.5 MG PO SCH ×3 (08:29→20:24)
[2019-07-14] MEDS: FEOSOL 325 MG PO SCH (08:29)
[2019-07-14] MEDS: Calcium 500MG W/Vit D Tablet PO SCH ×2 (08:29→20:30)
[2019-07-14] MEDS: MYRBETRIQ PO SCH (08:29)
[2019-07-14] MEDS: Vitamin C 500 MG PO SCH (08:30)
[2019-07-14] MEDS: Protonix 40MG Tablet PO SCH (08:30)
[2019-07-14] MEDS: THERAGRAN MULTIVITAMIN PO SCH (08:30)
[2019-07-14] MEDS: PATIENT OWN MEDICATION OP SCH ×2 (08:30→20:28)
[2019-07-14] MEDS: Prozac 20 MG PO SCH (08:30)
[2019-07-14] MEDS: Naprosyn 500 MG PO PRN ×2 (08:30→20:25)
[2019-07-14] MEDS: TYLENOL EXTRA STRENGTH 500 MG PO SCH ×2 (08:30→14:20)
[2019-07-14] MEDS ORDERED: DESYREL 50 MG PO PRN (10:30)
[2019-07-15] MEDS: TYLENOL EXTRA STRENGTH 500 MG PO SCH ×2 (07:51→14:10)
[2019-07-15] MEDS: NORVASC 5 MG PO SCH (07:51)
[2019-07-15] MEDS: Vitamin C 500 MG PO SCH (07:51)
[2019-07-15] MEDS: THERAGRAN MULTIVITAMIN PO SCH (07:52)
[2019-07-15] MEDS: Ativan 0.5 MG PO SCH ×2 (07:52→14:10)
[2019-07-15] MEDS: Prozac 20 MG PO SCH (07:52)
[2019-07-15] MEDS: MYRBETRIQ PO SCH (07:52)
[2019-07-15] MEDS: Naprosyn 500 MG PO PRN (07:52)
[2019-07-15] MEDS: Protonix 40MG Tablet PO SCH (07:52)
[2019-07-15] MEDS: Colace 100 MG PO SCH (07:52)
[2019-07-15] MEDS: FEOSOL 325 MG PO SCH (07:52)
[2019-07-15] MEDS: CLARITIN 10 MG PO SCH (07:52)
[2019-07-15] MEDS: Calcium 500MG W/Vit D Tablet PO SCH (07:53)
[2019-07-15] MEDS: PATIENT OWN MEDICATION PO SCH ×2 (07:53→07:54)
[2019-07-15] MEDS: FIBERCON 625 MG PO SCH (07:53)
[2019-07-15] MEDS: PATIENT OWN MEDICATION OP SCH (07:53)
[2019-07-15 11:13] VITALS: BP 137/64; PULSE 72; O2SAT 96
[2019-07-29] MEDS ORDERED: PALIPERIDONE PALMITATE 234 MG IM SCH (10:45)
== END 2019-07-15 15:33 ==
LOC: MED SURG 18:40 → OBSVTOIN 07-09 10:26 → INTOOBSV 07-09 10:26
PROVIDERS: ADMIT Internal Medicine; ATTEND Internal Medicine
DX: F42.9 Obsessive-compulsive disorder, unspecified (principal); F31.9 Bipolar disorder, unspecified; Z59.9 Problem related to housing and economic circumstances, unspecified; I10 Essential (primary) hypertension; M20.42 Other hammer toe(s) (acquired), left foot; M20.41 Other hammer toe(s) (acquired), right foot; S92.912 Unspecified fracture of left toe(s); Z79.899 Other long term (current) drug therapy
CPT/HCPCS: G0378; A9270-GY